=== PATIENT | female | born 1980 | race Caucasian/White ===

== ENCOUNTER 2016-06-11 10:18 | Emergency (ER) | payer BC, OTHER ==
[2016-06-11 10:30] VITALS: BP 105/62
--- NOTE | 2016-06-11 10:48 | UC ---
Throat Pain/Nasal Chris HPI - HPI Summary HPI Summary: SORE THROAT X 1 DAY, + NASAL CONGESTION AND COUGH X 1 WEEK, NO FEVER, + CHILLS + BODY ACHES - History of Current Complaint Chief Complaint: UCRespiratory Stated Complaint: SORE THROAT Time Seen by Provider: 06/11/16 10:39 Hx Obtained From: Patient Hx Last Menstrual Period: 06/02/16 Onset/Duration: Gradual Onset, Lasting Weeks - 1, Still Present Severity: Moderate Cough: Nonproductive Associated Signs & Symptoms: Positive: Nasal Discharge. Negative: Sinus Discomfort, Fever, Rash - Allergies/Home Medications Allergies/Adverse Reactions: Allergies Allergy/AdvReac Type Severity Reaction Status Date / Time Amoxicillin Allergy Intermediate Rash Verified 06/11/16 10:31 Sulfa Drugs Allergy Intermediate Rash Verified 06/11/16 10:31 Prednisone Allergy Difficulty Verified 06/11/16 10:31 Breathing Cefuroxime [From Ceftin] AdvReac Headache Verified 06/11/16 10:31 ? peanuts Allergy Swelling Uncoded 10/20/14 15:24 Of Face,Lips,& Throat environmental Allergy Congestion Uncoded 10/20/14 15:24 Home Medications: Home Medications Pseudoephedrine HCl [Sudafed Congestion] 30 mg PO Q4HR PRN 06/11/16 [History Confirmed 06/11/16] PMH/Surg Hx/FS Hx/Imm Hx Respiratory History Of: Reports: Asthma - A TEEN - Surgical History Surgical History: Yes Surgery Procedure, Year, and Place: 2 C-SECTS - Family History Known Family History: Positive: None, Other - neg for clots, PE, DVT Negative: Diabetes - Social History Alcohol Use: Rare Substance Use Type: None Smoking Status (MU): Former Smoker Type: Cigarettes Amount Used/How Often: 1/4 PPD Length of Time of Smoking/Using Tobacco: 6 Years Have You Smoked in the Last Year: No When Did the Patient Quit Smoking/Using Tobacco: 2006 - Immunization History Most Recent Influenza Vaccination: Not the Season Review of Systems Constitutional: Chills, Fatigue Skin: Negative Eyes: Negative ENT: Sore Throat, Nasal Discharge Respiratory: Cough Cardiovascular: Negative Gastrointestinal: Negative Genitourinary: Negative Motor: Negative All Other Systems Reviewed And Are Negative: Yes Physical Exam Triage Information Reviewed: Yes Appearance: Well-Appearing, No Pain Distress, Well-Nourished Vital Signs: Initial Vital Signs Temp 97.5 F 06/11/16 10:23 Pulse 64 06/11/16 10:23 Resp 14 06/11/16 10:23 BP 105/62 06/11/16 10:23 Pulse Ox 100 06/11/16 10:23 Vital Signs Reviewed: Yes Eyes: Positive: Conjunctiva Clear ENT: Positive: Normal ENT inspection, Hearing grossly normal, Pharyngeal erythema, TMs normal. Negative: Nasal congestion, Nasal drainage Neck exam: Normal Neck: Positive: Supple, Nontender, No Lymphadenopathy Respiratory: Positive: Chest non-tender, Lungs clear, Normal breath sounds, No respiratory distress Cardiovascular: Positive: RRR, No Murmur, Pulses Normal Abdominal Exam: Normal Skin Exam: Normal Throat Pain/Nasal Course/Dx - Differential Dx/Diagnosis Provider Diagnoses: VIRAL ILLNESS Discharge - Discharge Plan Condition: Stable Disposition: HOME Patient Education Materials: Viral Syndrome (ED) Referrals: Dinorah Lugo MD [Primary Care Provider] - 7 Days
== END 2016-06-11 11:04 | disposition home or self-care (01) ==
LOC: UCCORT 10:18
DX: B34.9 Viral infection, unspecified (principal); Z87.891 Personal history of nicotine dependence; Z88.2 Allergy status to sulfonamides; Z88.3 Allergy status to other anti-infective agents; Z88.8 Allergy status to other drugs, medicaments and biological substances
CPT/HCPCS: 87651; 99211; G0463

== ENCOUNTER 2016-10-31 18:50 | Emergency (ER) | payer BC ==
[2016-10-31 19:03] VITALS: BP 109/68
--- NOTE | 2016-10-31 19:58 | UC ---
Respiratory Complaint HPI - HPI Summary HPI Summary: The patient comes in today for: 1. Sore throat, otalgia, dizziness (imbalance), headache, post nasal drip; Onset: 3 days ago. Palliative/provocative: Sudafed and laying down makes it better. Quality: pressure Region: Sinuses: Severity: 5/10 Time: Constant. Associated symptoms: Fevers: None. Rhinitis: Nothing comes out. Cough: Present--clear/yellow. * - History of Current Complaint Chief Complaint: UCGeneralIllness Stated Complaint: SORE THROAT,COUGH,EARS Time Seen by Provider: 10/31/16 19:52 Hx Obtained From: Patient Hx Last Menstrual Period: - Allergies/Home Medications Allergies/Adverse Reactions: Allergies Allergy/AdvReac Type Severity Reaction Status Date / Time Amoxicillin Allergy Intermediate Rash Verified 10/31/16 19:03 Sulfa Drugs Allergy Intermediate Rash Verified 10/31/16 19:03 Prednisone Allergy Difficulty Verified 10/31/16 19:03 Breathing Cefuroxime [From Ceftin] AdvReac Headache Verified 10/31/16 19:03 ? peanuts Allergy Swelling Uncoded 10/31/16 19:03 Of Face,Lips,& Throat environmental Allergy Congestion Uncoded 10/31/16 19:03 PMH/Surg Hx/FS Hx/Imm Hx Previously Healthy: Yes - Surgical History Surgical History: Yes Surgery Procedure, Year, and Place: 2 C-SECTS - Family History Known Family History: Positive: None, Diabetes, Other - neg for clots, PE, DVT Negative: Hypertension - Social History Occupation: Employed Full-time Alcohol Use: None Substance Use Type: None Smoking Status (MU): Former Smoker Type: Cigarettes Amount Used/How Often: 1/4 PPD Length of Time of Smoking/Using Tobacco: 6 Years Have You Smoked in the Last Year: No When Did the Patient Quit Smoking/Using Tobacco: 2006 - Immunization History Most Recent Influenza Vaccination: Not the 2015/2015 Season Review of Systems Constitutional: Negative Skin: Negative Eyes: Negative ENT: Sore Throat, Nasal Discharge Respiratory: Cough Cardiovascular: Negative Gastrointestinal: Negative Genitourinary: Negative All Other Systems Reviewed And Are Negative: Yes Physical Exam Triage Information Reviewed: Yes Appearance: Well-Appearing, No Pain Distress, Well-Nourished Vital Signs: Initial Vital Signs Temp 98.0 F 06/15/17 18:57 Pulse 66 10/31/16 18:57 Resp 16 10/31/16 18:57 BP 109/68 10/31/16 18:57 Pulse Ox 100 10/31/16 18:57 Eyes: Positive: Conjunctiva Clear. Negative: Discharge ENT: Positive: Hearing grossly normal, Other: - Mild frontal sinus pressure tenderness.. Negative: Pharyngeal erythema, Nasal congestion, Nasal drainage, TM bulging, TM dull, TM red, Tonsillar swelling, Tonsillar exudate Dental: Negative: Gross Decay/Caries @, Dental Fracture @ Neck: Positive: Supple, Nontender, No Lymphadenopathy. Negative: Nuchal Rigidity Respiratory: Positive: Chest non-tender, Lungs clear, No respiratory distress, No accessory muscle use Cardiovascular: Positive: RRR, No Murmur Abdomen Description: Positive: Nontender, No Organomegaly, Soft. Negative: Distended, Guarding, Peritoneal Signs Musculoskeletal: Positive: Strength Intact, ROM Intact, No Edema Neurological: Positive: Alert, Muscle Tone Normal Psychological: Positive: Age Appropriate Behavior, Consolable Skin: Negative: rashes, breakdown UC Diagnostic Evaluation - Laboratory O2 Sat by Pulse Oximetry: 100 Diagnostic Studies Comment: Strep test: (-). Patient wants a z-elsie Respiratory Course/Dx - Differential Dx/Diagnosis Differential Diagnosis/HQI/PQRI: Asthma, Bronchitis, Laryngitis Provider Diagnoses: Upper respiratory infection. Sinusitis Discharge - Discharge Plan Condition: Stable Disposition: HOME Patient Education Materials: Sinusitis (ED) Referrals: Dinorah Lugo MD [Primary Care Provider] - 1 Week (Please see your primary care provider in about one to two weeks to see how well you are doing. If you get worse, please be seen sooner.)
== END 2016-10-31 20:31 | disposition home or self-care (01) ==
LOC: UCCORT 18:50
DX: J06.9 Acute upper respiratory infection, unspecified (principal); J32.9 Chronic sinusitis, unspecified; Z88.1 Allergy status to other antibiotic agents; Z88.0 Allergy status to penicillin; Z88.2 Allergy status to sulfonamides; Z88.8 Allergy status to other drugs, medicaments and biological substances; Z87.891 Personal history of nicotine dependence
CPT/HCPCS: 87651; 99212; G0463

== ENCOUNTER 2017-10-13 16:02 | Emergency (ER) | payer BC ==
[2017-10-13 16:58] VITALS: BP 100/62
--- NOTE | 2017-10-13 17:15 | UC ---
General HPI - HPI Summary HPI Summary: pt notes a swollen spot infront of her R ear on (4 days ago). it is a little sore but that may be from her rubbing it. denies uri, pink eye, fever or current illness. does have a tiny sore to the top of her head. states just had a normal exam the day before she found this. states had normal blood work as well. - History of Current Complaint Chief Complaint: UCGeneralIllness Stated Complaint: LUMP NEAR EAR RT SIDE Time Seen by Provider: 10/13/17 17:07 Hx Obtained From: Patient Hx Last Menstrual Period: 09/29/17 Timing: Constant Pain Intensity: 0 Aggravating: touch Alleviating: nothing Associated Signs & Symptoms: Negative: Fever, Weakness - Allergy/Home Medications Allergies/Adverse Reactions: Allergies Allergy/AdvReac Type Severity Reaction Status Date / Time amoxicillin Allergy Rash Verified 10/13/17 17:01 cefuroxime [From Ceftin] Allergy Headache Verified 10/13/17 17:01 prednisone Allergy Difficulty Verified 10/13/17 17:01 Breathing Sulfa (Sulfonamide Allergy Rash Verified 10/13/17 17:01 Antibiotics) ? peanuts Allergy Swelling Uncoded 10/13/17 17:01 Of Face,Lips,& Throat environmental Allergy Congestion Uncoded 10/13/17 17:01 Home Medications: Home Medications NK [No Home Medications Reported] 10/13/17 [History Confirmed 10/13/17] PMH/Surg Hx/FS Hx/Imm Hx Previously Healthy: Yes - Surgical History Surgical History: Yes Surgery Procedure, Year, and Place: 2 C-SECTS - Family History Known Family History: Positive: None, Diabetes, Other - neg for clots, PE, DVT Negative: Hypertension - Social History Occupation: Employed Full-time Lives: With Family Alcohol Use: None Substance Use Type: None Smoking Status (MU): Former Smoker Type: Cigarettes Amount Used/How Often: 1/4 PPD Length of Time of Smoking/Using Tobacco: 6 Years Have You Smoked in the Last Year: No When Did the Patient Quit Smoking/Using Tobacco: 2005 - Immunization History Most Recent Influenza Vaccination: Not the 2015/2015 Season Vaccination Up to Date: Yes Review of Systems Constitutional: Negative Skin: Other - sore on top of head Eyes: Negative ENT: Negative Respiratory: Negative Cardiovascular: Negative Gastrointestinal: Negative Genitourinary: Negative Motor: Negative Neurovascular: Negative Musculoskeletal: Negative Neurological: Negative Psychological: Negative Is Patient Immunocompromised?: No All Other Systems Reviewed And Are Negative: Yes Physical Exam Triage Information Reviewed: Yes Appearance: Well-Appearing Vital Signs: Initial Vital Signs Temp 98.2 F 10/13/17 16:54 Pulse 64 10/13/17 16:54 Resp 16 10/13/17 16:54 BP 100/62 10/13/17 16:54 Pulse Ox 100 10/13/17 16:54 Vital Signs Reviewed: Yes Eyes: Positive: Conjunctiva Clear ENT: Positive: Pharynx normal, TMs normal, Other - single enlarged node anterior to R ear that is mildly tender.. Negative: Nasal congestion, Nasal drainage Dental: Negative: Gross Decay/Caries @ Neck: Positive: Supple, Nontender, No Lymphadenopathy Respiratory: Positive: Lungs clear, Normal breath sounds Cardiovascular: Positive: RRR, No Murmur Abdomen Description: Positive: Nontender, No Organomegaly, Soft, Other: - No inguinal adenopathy. Negative: Hepatomegaly Bowel Sounds: Positive: Present Musculoskeletal: Positive: ROM Intact, Other: - no axillary or epitrochlear adenopathy Neurological: Positive: Alert Psychological: Positive: Age Appropriate Behavior Skin Exam: Normal, Other - 2mm scab top of head. not red or swollen. Course/Dx - Course Course Of Treatment: exam c/w an isolated anterior auricular adenopathy. tiny scab to top of head, exam is otherwise unremarkable. pt is established with Dr Lange. She will f/u with him for a recheck. no tx at this time. - Differential Dx - Multi-Symptom Provider Diagnoses: R anterior auricular adenopathy(single node) Discharge - Sign-Out/Discharge Documenting (check all that apply): Discharge/Admit/Transfer - Discharge Plan Condition: Stable Disposition: HOME Patient Education Materials: Lymphadenopathy (ED) Referrals: Dinorah Lugo MD [Primary Care Provider] - If Needed Madhu Lange MD [Medical Doctor] - 5 Days Additional Instructions: R anterior auricular adenopathy - Billing Disposition and Condition Condition: STABLE Disposition: HOME
== END 2017-10-13 17:32 | disposition home or self-care (01) ==
LOC: UCCORT 16:02
DX: R59.9 Enlarged lymph nodes, unspecified (principal); Z88.1 Allergy status to other antibiotic agents; Z88.0 Allergy status to penicillin; Z88.2 Allergy status to sulfonamides; Z88.8 Allergy status to other drugs, medicaments and biological substances; Z87.891 Personal history of nicotine dependence
CPT/HCPCS: 99211; G0463

== ENCOUNTER 2017-11-14 12:06 | Emergency (ER) | payer BC ==
[2017-11-14 12:23] VITALS: BP 103/69
--- NOTE | 2017-11-14 12:42 | UC ---
Abdominal Pain Female HPI - HPI Summary HPI Summary: Patient presents to with complaints of feeling somewhat bloated epigastric pressure since yesterday. Patient states feels primarily gassy. Patient is belching and passing flatus without difficulty or discomfort. Patient denies that her taste in her mouth with belching. Pt took gas relief medication yesterday without any improvement of symptoms. No other analgeisa. No meds today Patient states the discomfort better today than yesterday. Patient does state intermittently with rotation at the waist yesterday. Discomfort seemed a little worse but that improved today. Patient on a plant based diet and states that when her children get sick she tends to manifest as GI symptoms, less severe. Patient states her daughter was diagnosed with strep throat yesterday. Patient has not taken any medications or treatments specific directed to her complaints. She denies sore throat ear pain. Patient denies chest pain shortness of breath or cough. No trauma. Patient does not exercise. Patient does not report any repetitive activities. Patient without concern for . Medications medications reviewed this visit. - History of Current Complaint Chief Complaint: UCAbdominalPain Stated Complaint: UPPER ABDOMINAL PAIN Time Seen by Provider: 11/14/17 12:15 Hx Obtained From: Patient Hx Last Menstrual Period: 10/30/17 Onset/Duration: Gradual Onset Severity Initially: Mild Severity Currently: Mild Pain Intensity: 5 Pain Scale Used: 0-10 Numeric Location: Epigastric Allergies/Adverse Reactions: Allergies Allergy/AdvReac Type Severity Reaction Status Date / Time amoxicillin Allergy Rash Verified 11/14/17 12:14 cefuroxime [From Ceftin] Allergy Headache Verified 11/14/17 12:14 prednisone Allergy Difficulty Verified 11/14/17 12:14 Breathing Sulfa (Sulfonamide Allergy Rash Verified 11/14/17 12:14 Antibiotics) ? 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 Lives: With Family Alcohol Use: None Substance Use Type: None Smoking Status (MU): Former Smoker Type: Cigarettes Amount Used/How Often: 1/4 PPD Length of Time of Smoking/Using Tobacco: 6 Years Have You Smoked in the Last Year: No When Did the Patient Quit Smoking/Using Tobacco: 2005 - Immunization History Most Recent Influenza Vaccination: Not the Season Vaccination Up to Date: Yes Review of Systems Constitutional: Negative Skin: Negative Gastrointestinal: Abdominal Pain All Other Systems Reviewed And Are Negative: Yes Physical Exam - Summary Physical Exam Summary: Vital Signs Reviewed: Yes A+Ox3, no distress Eyes: Conjunctiva Clear, GISSELLE. EOM intact and full ENT: Hearing grossly normal TM x 2 clear, mmoist, uvula midline, no exudate, no erythema Neck: Positive: Supple Respiratory: Positive: No respiratory distress, No accessory muscle use + CTA throughout no w/r Cardiovascular: RRR nl s1, s2 no m/r CBT <2 sec no reproducible pain with palpation of chest wall abd soft + BS nd no guarding, no rebound Pt with mild discomfort epigastric region at xiphoid process. Musculoskeletal Exam: VASQUEZ x 4 without difficulty Strength Intact, ROM Intact Pt easily changes position on examination table Neurological: Positive: Alert, + sensation throughout Psychological: Positive: Normal Response To Family Skin: Positive: no rash, no ecchymosis Triage Information Reviewed: Yes Vital Signs: Initial Vital Signs Temp 98.4 F 11/14/17 12:15 Pulse 69 11/14/17 12:15 Resp 16 11/14/17 12:15 BP 103/69 11/14/17 12:15 Pulse Ox 100 11/14/17 12:15 Abd Pain Female Course/Dx - Course Course Of Treatment: Patient presents with 24 hours of epigastric fullness like gas pain. Patient did take gas relief medication yesterday without results. Patient has not taken any other medications. On examination, patient without discomfort in the epigastric area with deep palpation. No other concerning findings on exam. Discussed with patient at length. Suspect likely cancer related possible small episode reflux. Offered patient GI cocktail. Patient will prefer to use homeopathic remedies. We'll check for strep this patient's family has strep. Suggest the patient tried cold medication. Patient only eat bland food does not smoke cigarettes and does not have much caffeine. Patient strict return precautions. Patient states understanding and agreement with plan. If strep is negative anticipate discharge. Patient advised to the emergency department if symptoms increase, uncontrolled fevers, dental pain or vomiting. - Differential Dx/Diagnosis Provider Diagnoses: epigastric discomfort Discharge - Sign-Out/Discharge Documenting (check all that apply): Discharge/Admit/Transfer - Discharge Plan Condition: Stable Disposition: HOME Patient Education Materials: Epigastric Pain (ED) Referrals: Dinorah Lugo MD [Primary Care Provider] - Additional Instructions: The doctor evaluated today thinks if symptoms may be related to small amount of acid reflux. The following recommended: It is recommended to eat small frequent fluids. Continue to eat bland foods. Avoid spicy, acidic, tomato based products for a couple days. You may try cold or warm fluids - whatever is soothing Consider antacid to help with your discomfort Contact your doctor, return here or go to the emergency department with questions or concerns (ex increased pain, vomiting, fever, chills, shortness of breath) - Billing Disposition and Condition Condition: STABLE Disposition: Home
== END 2017-11-14 13:16 | disposition home or self-care (01) ==
LOC: UCCORT 12:06
DX: R10.13 Epigastric pain (principal); Z88.1 Allergy status to other antibiotic agents; Z88.0 Allergy status to penicillin; Z88.2 Allergy status to sulfonamides; Z88.8 Allergy status to other drugs, medicaments and biological substances; Z87.891 Personal history of nicotine dependence
CPT/HCPCS: 87651; 99211; G0463

== ENCOUNTER 2018-06-29 09:39 | Emergency (ER) | payer BC ==
[2018-06-29 11:58] VITALS: BP 100/57
--- NOTE | 2018-06-29 12:00 | UC ---
Throat Pain/Nasal Chris HPI - HPI Summary HPI Summary: 37 yo female presents with cold symptoms. She tells me that on 06/25 she developed body aches with a fever of Tman 102F that resolved with tylenol. Since that time she has had mild fatigue, body aches, and a dry cough that keeps her up at night. She has had no more fevers. Has been taking sudafed OTC with mild relief. Also has some sinus congestion and post nasal drip. Denies fever, chills, sore throat, SOB, chest pain. She does not smoke. - History of Current Complaint Chief Complaint: UCRespiratory Stated Complaint: COUGH,FLU SYMPTOMS Time Seen by Provider: 06/29/18 11:59 Hx Obtained From: Patient Hx Last Menstrual Period: 10/30/17 Onset/Duration: Gradual Onset Severity: Moderate Pain Intensity: 6 Pain Scale Used: 0-10 Numeric Cough: Nonproductive - Allergies/Home Medications Allergies/Adverse Reactions: Allergies Allergy/AdvReac Type Severity Reaction Status Date / Time amoxicillin Allergy Rash Verified 06/29/18 11:58 cefuroxime [From Ceftin] Allergy Headache Verified 06/29/18 11:58 prednisone Allergy Difficulty Verified 06/29/18 11:58 Breathing Sulfa (Sulfonamide Allergy Rash Verified 06/29/18 11:58 Antibiotics) ? peanuts Allergy Swelling Uncoded 06/29/18 11:58 Of Face,Lips,& Throat environmental Allergy Congestion Uncoded 06/29/18 11:58 Home Medications: Home Medications Phenylephrine HCl [Sudafed PE] 10 mg PO 06/29/18 [History] PMH/Surg Hx/FS Hx/Imm Hx - Additional Past Medical History Additional PMH: None - Surgical History Surgical History: Yes Surgery Procedure, Year, and Place: 2 C-SECTS - Family History Known Family History: Positive: Diabetes, Other - neg for clots, PE, DVT Negative: Hypertension - Social History Occupation: Employed Full-time Lives: With Family Alcohol Use: None Substance Use Type: None Smoking Status (MU): Former Smoker Type: Cigarettes Amount Used/How Often: 1/4 PPD Length of Time of Smoking/Using Tobacco: 6 Years Have You Smoked in the Last Year: No When Did the Patient Quit Smoking/Using Tobacco: 2006 - Immunization History Most Recent Influenza Vaccination: Not the Season Vaccination Up to Date: Yes Review of Systems All Other Systems Reviewed And Are Negative: Yes Constitutional: Positive: Fatigue, Other - Body aches Skin: Positive: Negative Eyes: Positive: Negative ENT: Positive: Nasal Discharge Respiratory: Positive: Cough Cardiovascular: Positive: Negative Gastrointestinal: Positive: Negative Neurovascular: Positive: Negative Neurological: Positive: Negative Psychological: Positive: Negative Physical Exam - Summary Physical Exam Summary: GENERAL: NAD. WDWN. No pain distress. SKIN: No rashes, sores, lesions, or open wounds. HEENT: Head: AT/NC Eyes: EOM intact. Conjunctiva clear without inflammation or discharge. Ears: Hearing grossly normal. TMs intact, no bulging, erythema, or edema. Nose: Nasal mucosa pink and moist. NTTP maxillary and frontal sinus. Throat: Posterior oropharynx without exudates, erythema, or tonsillar enlargement. Uvula midline. NECK: Supple. Nontender. No lymphadenopathy. CHEST: CTAB. No r/r/w. No accessory muscle use. Breathing comfortably and in no distress. CV: RRR. Without m/r/g. Pulses intact. Cap refill <2seconds NEURO: Alert. PSYCH: Age appropriate behavior. Triage Information Reviewed: Yes Vital Signs: Initial Vital Signs Temp 98.0 F 06/29/18 11:54 Pulse 67 06/29/18 11:54 Resp 18 06/29/18 11:54 BP 100/57 06/29/18 11:54 Pulse Ox 100 06/29/18 11:54 Vital Signs Reviewed: Yes Throat Pain/Nasal Course/Dx - Course Course Of Treatment: Suspect viral illness. Rx for cough medicine and advised to continue OTC medications. F/u if symptoms do not improve. - Differential Dx/Diagnosis Provider Diagnosis: Viral syndrome Discharge - Sign-Out/Discharge Documenting (check all that apply): Patient Departure All imaging exams completed and their final reports reviewed: No Studies - Discharge Plan Condition: Stable Disposition: HOME Prescriptions: Benzonatate CAP* [Tessalon 100 MG CAP*] 100 mg PO TID PRN #21 cap PRN Reason: Cough Diphenhydra/Phenyleph/Acetamin [Delsym Cough + Cold Night 12.5-5-325 mg/10Ml] 1 liq PO BEDTIME PRN #1 bottle PRN Reason: Cough Patient Education Materials: Viral Syndrome (ED) Referrals: Dinorah Lugo MD [Primary Care Provider] - Additional Instructions: If you develop a fever, shortness of breath, chest pain, new or worsening symptoms - please call your PCP or go to the ED. - Billing Disposition and Condition Condition: STABLE Disposition: Home
== END 2018-06-29 12:12 | disposition home or self-care (01) ==
LOC: UCCORT 09:39
DX: B34.9 Viral infection, unspecified (principal); M79.10 Myalgia, unspecified site; R53.83 Other fatigue; R05 Cough; R09.81 Nasal congestion; R09.82 Postnasal drip; Z88.0 Allergy status to penicillin; Z88.1 Allergy status to other antibiotic agents; Z88.8 Allergy status to other drugs, medicaments and biological substances; Z88.2 Allergy status to sulfonamides; Z91.09 Other allergy status, other than to drugs and biological substances; Z87.891 Personal history of nicotine dependence
CPT/HCPCS: 99212; G0463

== ENCOUNTER 2018-10-12 16:52 | Emergency (ER) | payer BC ==
--- OUTSIDE RECORDS SUMMARY | 2018-10-12 17:11 | XMS REPORT | Continuity of Care Document ---
:1980 External Reference #:[id number] Author Name Zoila Gutierrez Care Team Providers Name Role Phone Dinorah Lugo MD Care Team Information Green Ware Caster Unavailable Payers Date Identification Numbers Payment Provider Subscriber Policy Number: [id number] Blane Rivera PayID: [id number] [address] [address] MARIELLA Khan [id number] Family History Date Family Member(s) Observation Comments Father Diabetes Mellitus, II Father Heart Disease Maternal Grandmother Hyperthyroidism Maternal Grandmother spinal stenosis Maternal Aunts Hypothyroidism Social History Type Date Description Comments Sex Unknown Diet vegan no meat dairy or eggs ETOH Use Denies alcohol use Tobacco Use Start: Unknown End: Unknown Patient is a former smoker Smoking Status Reviewed: 10/08/17 Patient is a former smoker Allergies, Adverse Reactions, Alerts Active Allergies Reaction Severity Comments Date Amoxicillin Rash 01/04/2014 sulfa 01/04/2014 Ceftin 01/04/2014 Prednisone 01/04/2014 Peanut-containing Drug Products 01/04/2014 Medications Active Medications SIG Qnty Indications Ordering Provider Date Clotrimazole/Betametha apply to affected 45gm B35.9 Dinorah Lugo M.D. 11/2018 sone Dipropionate area three times a 1-0.05% day Cream History Medications No Active Medications Unknown 01/09/2017 - 09/22/2018 Zithromax 2 by mouth day 1, 6pills J02.9 Dinorah Lugo, 06/07/2015 - 250mg Tablets 1 by mouth every M.D. 11/08/2015 day x days 2-5 Work Note The above is J02.9 Dinorah Lugo, 06/07/2015 - excused from work M.D. 01/09/2017 until 06/09/15 Azithromycin 2 by mouth today, 6tabs J20.0 iDnorah Lugo, 02/22/2015 - 250mg 1 by mouth day 2 M.D. 06/07/2015 Tablets thru 5 Cheratussin ac 5 milliliters 118ml J20.0 Dinorah Lugo, 02/22/2015 - every 6 hours as M.D. 06/07/2015 100-10mg/5ML Solution needed cough Pseudoephedrine HCL J20.0 Dinorah Lugo, 02/22/2015 - 30mg M.D. 06/07/2015 Tablets Lidoderm apply patch to 7units 846.8 Dinorah Lugo, 10/24/2014 - 5% Patches affected area of M.D. 11/08/2015 back change daily Antibacterial Lotion wash affected 704.80 Dinorah Lugo, 02/22/2014 - Soap/ Phisohex areas of skin with M.D. 08/08/2014 0.3% soap once daily Liquid Complete 1 po daily 100tabs Dinorah Lugo, 01/19/2014 - M.D. 01/09/2017 14-0.4mg Tablets Multivitamins With 1 po daily 100unit Dinorah Lugo, 01/19/2014 - Minerals s M.D. 01/19/2014 Magnesium Gluconate 1 by mouth daily 100tabs 275.2 Dinorah Lugo, 2013 - 500mg M.D. 08/08/2014 Tablets Ciprofloxacin HCL 1 by mouth twice a 14tabs 995.3 Dinorah Lugo, 01/04/2014 - 250mg day M.D. 02/22/2014 Tablets Astepro 1-2 sprays to each 1units 995.3 Dinorah Lugo, 01/04/2014 - 0.15% Solution nose daily. M.D. 08/08/2014 Doxycycline 1 by mouth twice a 30caps 995.3 Dinorah Lugo, 01/04/2014 - Monohydrate day M.D. 01/04/2014 100mg Capsules Vitamin D 2 by mouth every Dinorah Lugo, 01/04/2014 - 2000Unit day M.D. 08/08/2014 Capsules Ventolin HFA 2 puff four times 1units Dinorah Lugo, 01/04/2014 - 108(90Base) a day as needed M.D. 01/04/2014 mcg/Act Aerosol Qnasl Dinorah Lugo, 01/04/2014 - 80mcg/Act Aerosol M.D. 01/04/2014 Levocetirizine 1 by mouth every 90tabs Dinorah Lugo, 01/04/2014 - Dihydrochloride day M.D. 01/04/2014 5mg Tablets Dulera 1 puff twice a day 3units Dinorah Lugo, 01/04/2014 - 100-5mcg/Act M.D. 01/04/2014 Aerosol Zyrtec Allergy tab 1 by mouth 30caps Dinorah Lugo, 01/04/2014 - 10mg every day M.D. 08/08/2014 Capsules Magnesium Oxide 1 by mouth qd 90caps 275.2 Dinorah Lugo, 01/04/2014 - 400mg M.D. 01/19/2014 Capsules Triamcinolone Dinorah Lugo, 01/04/2014 - Acetonide M.D. 01/04/2014 55mcg/Act Inhaler Sertraline HCL 1 by mouth every 90tabs Dinorah Lugo, 01/04/2014 - 50mg day M.D. 01/04/2014 Tablets Azithromycin Unknown - 200mg/5ML 01/04/2014 Suspension Rec Medications Administered in Office Medication SIG Qnty Indications Ordering Provider Date PPD Injection Dinorah Lugo M.D. 11/06/2015 PPD Injection Nurse 11/06/2015 B-12 Injection Dinorah Lugo M.D. 01/19/2014 Injection Vital Signs Date Vital Result Comment 09/28/2018 3:35pm BP Systolic 98 mmHg BP Diastolic 66 mmHg Height 66 inches 5'6" Weight 167.00 lb BMI (Body Mass Index) 27.0 kg/m2 09/22/2018 1:22pm BP Systolic 104 mmHg BP Diastolic 70 mmHg Height 66 inches 5'6" Weight 167.00 lb BMI (Body Mass Index) 27.0 kg/m2 10/08/2017 3:51pm BP Systolic 94 mmHg BP Diastolic 62 mmHg Height 66 inches 5'6" Weight 185.00 lb BMI (Body Mass Index) 29.9 kg/m2 01/09/2017 11:01am BP Systolic 118 mmHg BP Diastolic 68 mmHg Height 65 inches 5'5" Weight 180.00 lb BMI (Body Mass Index) 30.0 kg/m2 11/08/2015 2:34pm BP Systolic 110 mmHg Height 178 inches 14'10" 06/07/2015 3:40pm BP Systolic 130 mmHg BP Diastolic 72 mmHg Body Temperature 98.6 F 02/22/2015 2:42pm Body Temperature 98.2 F 10/26/2014 1:29pm BP Systolic 110 mmHg BP Diastolic 70 mmHg 10/24/2014 11:23am BP Systolic 102 mmHg BP Diastolic 70 mmHg 08/10/2014 9:54am BP Systolic 120 mmHg BP Diastolic 60 mmHg 08/03/2014 11:26am BP Systolic 110 mmHg BP Diastolic 78 mmHg 07/20/2014 11:03am BP Systolic 108 mmHg BP Diastolic 60 mmHg Height 66 inches 5'6" Weight 175.00 lb BMI (Body Mass Index) 28.2 kg/m2 04/25/2014 3:27pm BP Systolic 120 mmHg BP Diastolic 70 mmHg Body Temperature 97.1 F Height 66 inches 5'6" Weight 175.00 lb BMI (Body Mass Index) 28.2 kg/m2 04/11/2014 2:33pm BP Systolic 122 mmHg BP Diastolic 80 mmHg 01/04/2014 2:44pm BP Systolic 102 mmHg BP Diastolic 70 mmHg Height 63 inches 5'3" Weight 199.00 lb BMI (Body Mass Index) 35.2 kg/m2 Results Test Date Facility Test Result H/L Range Note General Health Panel 09/22/2018 [facility] TSH 0.94 mIU/L 0.40-4.50 1, [address] [facility] [address] [place] [address] [phone] T4,Free 1.1 ng/dL 0.8-1.8 CBC W/ Diff & PLT 09/22/2018 [facility] WBC 7.7 thous/L 3.8-10.[address] [place] [address] [phone] RBC 3.79 mill/L Low 3.80-5.10 Hemoglobin 11.5 g/dL Low 11.7-15.5 Hematocrit 34.2 % Low 35.0-45.0 MCV 90.4 FL 80.0-100.0 MCH 30.3 pg 27.0-33.0 MCHC 33.5 g/dL 32.0-36.0 RDW 14.3 % 11.0-15.0 Platelet Count 203 thous/L 140-400 MPV 10.1 FL 7.5-12.5 Neutrophils,Absolute 5100 cells/L [phone] Bands,Absolute PENDING Metamyelocytes,Absolute PENDING Myelocytes,Absolute PENDING Promyelocytes,Absolute PENDING Lymphocytes,Absolute 2000 cells/L 850-3900 Monocytes,Absolute 470 cells/L 200-950 Eosinophils,Absolute 100 cells/L 15-500 Basophils,Absolute 30 cells/L 0-200 Blast Cells,Absolute PENDING Nucleated RBC,Absolute PENDING Total Neutrophils,% 66 % 40-75 Bands,% PENDING Metamyelocytes,% PENDING Myelocytes,% PENDING Promyelocytes,% PENDING Total Lymphocytes,% 26 % 12-47 Reactive Lymphocytes PENDING Monocytes,% 6 % 4-12 Eosinophils,% 1 % 0-4 Basophils,% 0 % 0-1 3 Blasts,% PENDING Nucleated RBC PENDING Comment PENDING CMP W/GFR 09/22/2018 [facility] Sodium 139 mmol/L 135-[address] [place] [address] [phone] Potassium 3.8 mmol/L 3.5-5.3 Chloride 106 mmol/L 98-110 Carbon Dioxide 26 mmol/L 20-32 4 Calcium 9.0 mg/dL 8.6-10.2 Alkaline Phosphatase 57 U/L 33-115 Ast 13 U/L 10-30 Alt 12 U/L 6-29 Bilirubin,Total 0.4 mg/dL 0.2-1.2 Glucose 102 mg/dL High 65-99 5 Urea Nitrogen (BUN) 7 mg/dL 7-25 Creatinine 0.52 mg/dL 0.50-1.10 BUN/Creatinine Ratio 13.8 6-22 Protein,Total 6.9 g/dL 6.1-8.1 Albumin 4.3 g/dL 3.6-5.1 Globulin,Calculated 2.6 g/dL 1.9-3.7 A/G Ratio 1.6 1.0-2.5 Egfr Non-Afr. Taiwanese 123 ML/MIN/1.73M2 > Or=60 Egfr 142 ML/MIN/1.73M2 > Or=60 Lupus (SLE) PNL 09/22/2018 [facility] Rheumatoid Factor < 14 IU/mL <[address] [place] [address] [phone] C3,Serum 136 mg/dL 83-193 C4,Serum 25 mg/dL 15-57 Maki Screen NEGATIVE Negative 6 Mitochondrial AB Titer LESS THAN 1:20 TITER Less Than 1:20 Ribosomal P Antibody <1.0 NEG AI <1.0 Neg SM AB <1.0 NEG AI <1.0 Neg SM/ASPHALT STILL OPERATOR AB <1.0 NEG AI <1.0 Neg Sjogren's AB (SS-A) <1.0 NEG AI <1.0 Neg Sjogren's AB (SS-B) <1.0 NEG AI <1.0 Neg Parietal Cell AB Titer LESS THAN 1:20 TITER Less Than 1:20 Scleroderma Abs (SCL-70) <1.0 NEG AI <1.0 Neg Thyroid Peroxidase AB 2 IU/mL <9 Actin (Smooth Musc) AB (Igg) <20 U <20 7 Dna AB (DS) Crithidia NEGATIVE Negative Dna AB (DS) Crithidia Titer SEE BELOW <1:10 8 Striated Muscle AB Screen NEGATIVE Negative 9 Striated Muscle AB Titer SEE BELOW <1:40 10 Myocardial AB, If NEGATIVE Negative 11 Antimyocardial AB Titer SEE BELOW <1:40 12 Reticulin Iga Screen Negative Negative Laboratory test 09/22/2018 [facility] Dna AB (DS) PENDING finding [address] [place] [address] Titer Reflex) [phone] Laboratory test 09/22/2018 [facility] Lyme Disease <0.90 INDEX [address] AB W/[place] [address] To Blot [phone] (Igg,Igm) Ua RFX Micro & 11/15/2017 [facility] Urine Color YELLOW Yellow 14 Culture II [address] [place] [address] [phone] Urine Clarity CLEAR Clear Urine Glucose - Dipstick NEGATIVE mg/dL Negative Urine Bilirubin - Dipstick NEGATIVE Negative Urine Ketone TRACE mg/dL High Negative Urine Specific Dinuba 1.020 N 1.010-1.030 Urine Blood NEGATIVE Negative Urine PH 5.5 Low 6.5-7.5 Urine Protein - Dipstick NEGATIVE mg/dL Negative Urine Urobilinogen - Dipstick 0.2 E.U./dL N 0.2-1.0 Urine Nitrite - Dipstick NEGATIVE Negative Urine Leuk Esterase NEGATIVE Negative Source: URINE, CLEAN CAT <SEE NOTE> 15 CBS W/Automated 11/15/2017 [facility] White Blood 6.9 K/uL N 3.1-10.[address] Count [place], [place] [id number] [phone] Red Blood Count 4.43 M/uL N 3.90-5.40 Hemoglobin 13.3 gm/dL N 11.6-15.8 Hematocrit 39.4 % N 36.0-46.1 Mean Cell Volume 88.9 fl N 80.9-99.0 Mean Corpuscular HGB 30.0 pg N 25.9-32.7 Mean Corpuscular HGB Conc 33.8 g/dL N 30.8-34.3 Platelet Count 239 K/uL N 155-360 Red Cell Distri Width SD 41.3 fl N 3-47 Red Cell Distri Width %CV 12.8 % N 11.7-14.4 Mean Platelet Volume 9.9 fL N 8.9-12.4 Neut% 70.8 % N 40.4-72.8 Lymph % 22.0 % N 20.0-42.0 Dewey % 5.1 % N 4.3-13.2 Eo% 1.7 % N 0.0-6.6 Bas% 0.4 % N 0.0-1.1 Neut# 4.90 K/uL N 1.8-7.0 Lymph # 1.52 K/uL N 1.0-4.0 Dewey # 0.35 K/uL N 0.3-0.9 Eos # 0.12 K/uL N 0.0-0.5 Baso # 0.03 K/uL N 0.0-0.1 Comprehensive Metabolic 11/15/2017 [facility] Glucose 95 mg/dL N 74-[address] [place], [place] [id number] [phone] BUN 7 mg/dL N 7-18 Creatinine 0.7 mg/dL N 0.6-1.3 Glom Filtration Rate, Estimate >60 mL/min >60 If >60 mL/min >60 16 BUN/Creat 10.0 ratio Sodium 141 mmol/L N 136-145 Potassium 3.9 mmol/L N 3.5-5.1 Chloride 107 mmol/L N 98-107 Carbon Dioxide 26 mmol/L N 21-32 Anion Gap 8 mEq/L N 8-16 Calcium 9.1 mg/dL N 8.5-10.1 Total Protein 8.1 g/dL N 6.4-8.2 Albumin 4.0 g/dL N 3.4-5.0 Globulin 4.1 g/dL N 1.9-4.3 Alb/Glob 1.0 ratio Bilirubin,Total 0.3 mg/dL N 0.2-1.0 Sgot/Ast 13 U/L Low 15-37 17 SGPT/Alt 20 U/L N 12-78 Alkaline Phosphatase 61 U/L N 45-117 Laboratory test 11/15/2017 [facility] Lipase 167 U/L N 56-[address] [place], [place] [id number] [phone] HCG,Serum (Qualitative) NEGATIVE (Negative) 18 Laboratory test 11/15/2017 [facility] Troponin-I < 0.015 [address] ng/mL [place], [place] [id number] [phone] Laboratory test 11/14/2017 [facility] Rapid Strep Negative Negative [address] [place] [address] [phone] Vitamin E, 09/26/2017 [facility] Vitamin E 6.6 mg/L 5.9-19.4 [address] [place] [address] [phone] Vitamin E(Gamma Tocopherol) 0.6 mg/L Low 0.7-4.9 22 Laboratory test 09/26/2017 [facility] Vitamin A, 27.5 g/dL Low 31.2-89.1 [address] [place] [address] [phone] Vitamin B12 550 pg/mL N 193-986 Vitamin D,1,25 Dihydroxy 50.1 pg/mL 19.9-79.3 24 Basic Metabolic Panel 09/26/2017 [facility] Glucose 93 mg/dL N 74-[address] [place] [address] [phone] BUN 9 mg/dL N 7-18 Creatinine 0.6 mg/dL N 0.6-1.3 Glom Filtration Rate, Estimate >60 mL/min >60 If >60 mL/min >60 25 BUN/Creat 15.0 ratio Sodium 138 mmol/L N 136-145 Potassium 3.9 mmol/L N 3.5-5.1 Chloride 107 mmol/L N 98-107 Carbon Dioxide 26 mmol/L N 21-32 Anion Gap 5 mEq/L Low 8-16 Calcium 8.3 mg/dL Low 8.5-10.1 LDL Cholesterol 09/26/2017 [facility] Cholesterol 109 mg/dL <200 [address] [place], [place] [id number] [phone] Triglycerides 46 mg/dL <150 27 HDL Cholesterol 44 mg/dL >40 28 LDL-Cholesterol 56 mg/dL < 100 29 CBS W/Automated 09/26/2017 [facility] White Blood 6.5 K/uL N 3.1-10.[address] [place] [address] [phone] Red Blood Count 4.05 M/uL N 3.90-5.40 Hemoglobin 12.3 gm/dL N 11.6-15.8 Hematocrit 35.9 % Low 36.0-46.1 Mean Cell Volume 88.6 fl N 80.9-99.0 Mean Corpuscular HGB 30.4 pg N 25.9-32.7 Mean Corpuscular HGB Conc 34.3 g/dL N 30.8-34.3 Platelet Count 192 K/uL N 155-360 Red Cell Distri Width SD 41.5 fl N 3-47 Red Cell Distri Width %CV 13.1 % N 11.7-14.4 Mean Platelet Volume 10.0 fL N 8.9-12.4 Neut% 67.2 % N 40.4-72.8 Lymph % 24.0 % N 20.0-42.0 Dewey % 6.3 % N 4.3-13.2 Eo% 2.2 % N 0.0-6.6 Bas% 0.3 % N 0.0-1.1 Neut# 4.34 K/uL N 1.8-7.0 Lymph # 1.55 K/uL N 1.0-4.0 Dewey # 0.41 K/uL N 0.3-0.9 Eos # 0.14 K/uL N 0.0-0.5 Baso # 0.02 K/uL N 0.0-0.1 CBC W/ Diff & PLT 01/09/2017 [facility] WBC 7.4 thous/L 3.8-10.8 [address] [facility] [place] [address] [phone] RBC 4.36 mill/L 3.80-5.10 Hemoglobin 12.6 g/dL 11.7-15.5 Hematocrit 37.5 % 35.0-45.0 MCV 86.1 FL 80.0-100.0 MCH 29.0 pg 27.0-33.0 MCHC 33.7 g/dL 32.0-36.0 RDW 14.5 % 11.0-15.0 Platelet Count 226 thous/L 140-400 Platelet Sufficiency PENDING MPV 8.2 FL 7.5-12.5 Neutrophils,Absolute 4670 cells/L 0362-1381 Bands,Absolute PENDING Metamyelocytes,Absolute PENDING Myelocytes,Absolute PENDING Promyelocytes,Absolute PENDING Lymphocytes,Absolute 2140 cells/L 850-3900 Monocytes,Absolute 360 cells/L 200-950 Eosinophils,Absolute 150 cells/L 15-500 Basophils,Absolute 30 cells/L 0-200 Blast Cells,Absolute PENDING Nucleated RBC,Absolute PENDING Total Neutrophils,% 64 % 40-75 Bands,% PENDING Metamyelocytes,% PENDING Myelocytes,% PENDING Promyelocytes,% PENDING Total Lymphocytes,% 29 % 12-47 Monocytes,% 5 % 4-12 Eosinophils,% 2 % 0-4 Basophils,% 0 % 0-1 30 Blasts,% PENDING Nucleated RBC PENDING RBC Morphology PENDING Anisocytosis PENDING Poikilocytosis PENDING Microcytosis PENDING Macrocytosis PENDING Polychromasia PENDING Hypochromasia PENDING Target Cells PENDING Basophilic Stippling PENDING Comment PENDING Lipid Panel 01/09/2017 [facility] Cholesterol 156 mg/dL <[address] [place] [address] [phone] HDL Cholesterol 41 mg/dL Low >50 Cholesterol/HDL Ratio 3.8 CALC <5.0 LDL Chol,Calculated 89 mg/dL 0-100 31 Triglycerides 161 mg/dL High <150 Non-HDL Cholesterol 114 mg/dL <130 32 Basic Metab W/O CA 01/09/2017 [facility] Sodium 139 mmol/L 135-[address] [place], [place] [address] [phone] Potassium 3.9 mmol/L 3.5-5.3 Chloride 103 mmol/L 98-110 Carbon Dioxide 26 mmol/L 20-31 Glucose 88 mg/dL 65-99 33 Urea Nitrogen 9 mg/dL 7-25 Creatinine 0.54 mg/dL 0.50-1.10 BUN/Creatinine Ratio 17.0 6-22 Laboratory test 01/09/2017 [facility] Vitamin 668 pg/mL 200-[address] B12,Serum [place] [id number] [phone] Vitamin D(1,25 & 01/09/2017 [facility] Vitamin D,1,25 49 pg/mL 18-72 25), A & E [address] (Oh)2,Total [place], [place] [address] [phone] Vitamin D3,1,25 (Oh)2 49 pg/mL Vitamin D2,1,25 (Oh)2 <8 pg/mL 34 Vitamin D,25-Oh,Total 33 ng/mL 30-100 Vitamin D,25-Oh,D3 33 ng/mL Vitamin D,25-Oh,D2 <4 ng/mL 35 Vitamin A (Retinol) 43 g/dL 38-98 36 Alpha-Tocopherol 12.6 mg/L 5.7-19.9 37 Rirn-Tnabj-Lgyfzbkuef <1.0 mg/L <=4.3 38 Laboratory test 10/31/2016 [facility] Rapid Strep Negative N Negative [address] [place] [address] [phone] Laboratory test 06/11/2016 [facility] Rapid Strep Negative N Negative [address] [place] [address] [phone] Celiac Disease 11/07/2014 [facility] Interpretation see note [address] [place] [address] [phone] Tissue Transglutam AB Iga 1 U/mL <4 42 Iga,Serum 233 mg/dL 81-463 Laboratory test 10/18/2014 [facility] Urine HCG NEGATIVE Negative [address] (Qualitative) [place], [place] [id number] [phone] Urine Screen 10/18/2014 [facility] Urine Color STRAW Yellow [address] [place] [address] [phone] Urine Clarity CLEAR Clear Urine Glucose - Dipstick NEGATIVE mg/dL Negative Urine Bilirubin - Dipstick NEGATIVE Negative Urine Ketone NEGATIVE mg/dL Negative Urine Specific Dinuba 1.015 1.010-1.030 Urine Blood NEGATIVE Negative Urine PH 5.5 Low 6.5-7.5 Urine Protein - Dipstick NEGATIVE mg/dL Negative Urine Urobilinogen - Dipstick 0.2 E.U./dL 0.2-1.0 Urine Nitrite - Dipstick NEGATIVE Negative Urine Leuk Esterase NEGATIVE Negative CBS W/Automated 07/21/2014 [facility] White Blood 6.8 K/uL 3.1-10.[address] [place] [address] [phone] Red Blood Count 4.32 M/uL 3.90-5.40 Hemoglobin 12.6 gm/dL 11.6-15.8 Hematocrit 38.4 % 36.0-46.1 Mean Cell Volume 88.9 fl 80.9-99.0 Mean Corpuscular HGB 29.2 pg 25.9-32.7 Mean Corpuscular HGB Conc 32.8 g/dL 30.8-34.3 Platelet Count 229 K/uL 155-360 Red Cell Distri Width SD 42.7 fl 3-47 Red Cell Distri Width %CV 13.4 % 11.7-14.4 Mean Platelet Volume 10.3 fL 8.9-12.4 Neut% 68.9 % 40.4-72.8 Lymph % 22.9 % 17.0-46.1 Dewey % 5.7 % 4.3-13.2 Eo% 2.2 % 0.0-6.6 Bas% 0.3 % 0.0-1.1 Neut# 4.70 K/uL 1.0-7.0 Lymph # 1.56 K/uL Low 1.8-7.0 Dewey # 0.39 K/uL 0.3-0.9 Eos # 0.15 K/uL 0.0-0.5 Baso # 0.02 K/uL 0.0-0.1 Basic Metabolic Panel 07/21/2014 [facility] Glucose 83 mg/dL 74-[address] [place] [address] [phone] BUN 11 mg/dL 7-18 Creatinine 0.7 mg/dL 0.6-1.3 Glom Filtration Rate, Estimate >60 mL/min >60 If >60 mL/min >60 44 BUN/Creat 15.7 ratio Sodium 141 mmol/L 136-145 Potassium 3.9 mmol/L 3.5-5.1 Chloride 106 mmol/L 98-107 Carbon Dioxide 30 mmol/L 21-32 Anion Gap 5 mEq/L Low 8-16 Calcium 8.4 mg/dL Low 8.5-10.1 Laboratory test 07/21/2014 [facility] Direct LDL 96.0 mg/dL [address] [place] [address] [phone] TSH+Free T4 07/21/2014 [facility] Thyroid Stim 1.14 uIU/mL 0.36- [place] [place] [address] Hormone 3.74 [place] [address] [phone] Free T4 0.94 ng/dL 0.76-1.46 Laboratory test 07/21/2014 [facility] Free T3 2.86 pg /mL 2.18-3.[address] [place] [address] [phone] Reverse T3 12.7 ng/dL 9.2-24.1 Thyroid 07/21/2014 [facility] Thyroid Peroxidase 7 IU /mL 0-34 [address] [place] [address] [phone] Laboratory 07/21/2014 [facility] Antithyroglobulin < 1.0 0.0-0.9 47 test finding [address] Antibody IU/[place] [address] [phone] Laboratory 04/19/2014 [facility] Histone AB <1.0 U <1.0 48 test finding [address] [place], [place] [address] [phone] Iga,Serum 261 mg/dL 81-463 Igg,Serum 1304 mg/dL [phone] Igm,Serum 130 mg/dL 48-271 Laboratory test 04/19/2014 [facility] Histamine,Plasma <1.5 0.1-1.8 [address] [place] NG/[place] [address] [phone] CBC W/ Diff & 04/11/2014 [facility] White Blood Count 9.2 K/uL 3.1-10.[address] [place], [place] [address] [phone] Red Blood Count 4.21 M/uL 3.90-5.40 Hemoglobin 12.2 gm/dL 11.6-15.8 Hematocrit 36.8 % 36.0-46.1 Mean Cell Volume 87.4 fl 80.9-99.0 Mean Corpuscular HGB 29.0 pg 25.9-32.7 Mean Corpuscular HGB Conc 33.2 g/dL 30.8-34.3 Platelet Count 226 K/uL 155-360 Red Cell Distri Width SD 40.3 fl 3-47 Red Cell Distri Width %CV 13.1 % 11.7-14.4 Mean Platelet Volume 10.4 fL 8.9-12.4 Neut% 75.6 % High 40.4-72.8 Lymph % 17.9 % 17.0-46.1 Dewey % 5.2 % 4.3-13.2 Eo% 1.1 % 0.0-6.6 Bas% 0.2 % 0.0-1.1 Neut# 6.92 K/uL 1.0-7.0 Lymph # 1.64 K/uL 0.8-3.4 Dewey # 0.48 K/uL 0.3-0.9 Eos # 0.10 K/uL 0.0-0.5 Baso # 0.02 K/uL 0.0-0.1 Laboratory test 04/11/2014 [facility] Vitamin B12 672 pg/mL 200-900 [address] [place] [address] [phone] FSH 2.7 mIU/mL 51 Luteinizing Hormone 1.8 mIU/mL 52 Folate,RBC 04/11/2014 [facility] Folate,Hemolysate 505.9 NotEstab.ng/m [address] [place] [address] [phone] Hematocrit 36.9 % 34.0-46.6 Folate,RBC 1371 ng/mL [phone] Laboratory test 04/11/2014 [facility] Estrogen,Total 83 pg/mL . [address] [place], [place] [address] [phone] Progesterone 1.1 ng/mL . 54 TSH+Free T4 04/06/2014 [facility] Thyroid Stim 1.00 uIU/mL 0.36-3.74 ([facility] & [address] Hormone [facility] [place], [place] [address] [phone] Free T4 0.92 ng/dL 0.76-1.46 Laboratory test 04/06/2014 [facility] Magnesium 1.7 mg/dL Low 1.8-2.[address] [place] [address] [phone] Laboratory test 03/26/2014 [facility] Urine HCG NEGATIVE Negative [address] (Qualitative) [place] [address] [phone] Urine Screen 03/26/2014 [facility] Urine Color STRAW Yellow [address] [place] [address] [phone] Urine Clarity CLEAR Clear Urine Glucose - Dipstick NEGATIVE mg/dL Negative Urine Bilirubin - Dipstick NEGATIVE Negative Urine Ketone NEGATIVE mg/dL Negative Urine Specific [place] <=1.005 Low 1.010-1.030 Urine Blood NEGATIVE Negative Urine PH 6.5 6.5-7.5 Urine Protein - Dipstick NEGATIVE mg/dL Negative Urine Urobilinogen - Dipstick 0.2 E.U./dL 0.2-1.0 Urine Nitrite - Dipstick NEGATIVE Negative Urine Leuk Esterase NEGATIVE Negative Laboratory test 02/08/2014 [facility] Magnesium 1.6 mg/dL Low 1.8-2.[address] [place], [place] [id number] [phone] CBS W/Automated 01/04/2014 [facility] White Blood 9.8 K/uL 3.1-10.[address] [place] [address] [phone] Red Blood Count 4.25 M/uL 3.90-5.40 Hemoglobin 12.8 gm/dL 11.6-15.8 Hematocrit 36.5 % 36.0-46.1 Mean Cell Volume 85.9 fl 80.9-99.0 Mean Corpuscular HGB 30.1 pg 25.9-32.7 Mean Corpuscular HGB Conc 35.1 g/dL High 30.8-34.3 Platelet Count 271 K/uL 155-360 Red Cell Distri Width SD 41.0 fl 3-47 Red Cell Distri Width %CV 13.4 % 11.7-14.4 Mean Platelet Volume 10.2 fL 8.9-12.4 Neut% 68.8 % 40.4-72.8 Lymph % 24.1 % 17.0-46.1 Dewey % 5.2 % 4.3-13.2 Eo% 1.5 % 0.0-6.6 Bas% 0.4 % 0.0-1.1 Neut# 6.71 K/uL 1.0-7.0 Lymph # 2.35 K/uL 0.8-3.4 Dewey # 0.51 K/uL 0.3-0.9 Eos # 0.15 K/uL 0.0-0.5 Baso # 0.04 K/uL 0.0-0.1 Celiac Disease 01/04/2014 [facility] Immunoglobulin A 226 mg/dL 91-414 Comp AB Profile [address] [place] [address] [phone] Antigliadin Abs, IgG 4 units 0-19 56 Antigliadin Abs, IgA 2 units 0-19 57 Endomysial IgA Antibody Negative Negative t-Transglutaminase IgA <2 U/mL 0-3 58 t-Transglutaminase IgG <2 U/mL 0-5 59 Laboratory test 01/04/2014 [facility] Magnesium 1.4 mg/dL Low 1.7-2.[address] [place] [address] [phone] Thyroid Stim Hormone 2.01 uIU/mL 0.49-4.67 Free T4 1.00 ng/dL 0.71-1.85 Basic Metabolic 01/04/2014 [facility] Glucose 101 mg/ dL 76-[address] [place] [address] [phone] BUN 8 mg/dL 5-23 Creatinine 0.8 mg/dL 0.5-1.4 Glom Filtration Rate, Estimate >60 mL/min >60 If >60 mL/min >60 60 BUN/Creat 10.0 ratio Sodium 137 mmol/L 136-145 Potassium 3.7 mmol/L 3.5-5.1 Chloride 104 mmol/L 98-107 Carbon Dioxide 28 mEq/L 18-29 Anion Gap 9 mEq/L 8-16 Calcium 8.9 mg/dL 8.5-10.1 Laboratory test 01/04/2014 [facility] Vitamin 35.7 30.0-100.0 [address] D,25-Hydroxy ng/[place] [address] [phone] Throat-Beta 12/31/2013 [facility] Throat Beta ([address] Strep Culture NOTE) [place] [address] [phone] FASTING; MULTIPLE TESTING PRIORITIES; ROUTINE TESTING TO FOL 2 REFERENCE RANGES BELOW ARE APPLICABLE TO FEMALES FIRST TRIMESTER - 0.26 - 2.66 mIU/L SECOND TRIMESTER - 0.55 - 2.73 mIU/L THIRD TRIMESTER - 0.43 - 2.91 mIU/L 3 Relative blood cell counts (%) should be compared with absolute cell counts (cells/mcL). Relative counts may not be clinically meaningful if the absolute count of one or more cell type is decreased. Reference ranges for relative cell counts derived from: A Manual of Laboratory and Diagnostics Tests, 9th Ed, [employer], 2015. Pediatric Reference Intervals, 7th Ed, [facility] Press, 2011. 4 Reference range for high altitude clients: 18-30 mmol/L 5 GLUCOSE REFERENCE RANGE BASED ON FASTING SPECIMEN. 6 MAKI IFA is a first line screen for detecting the presence of up to approximately 150 autoantibodies in various autoimmune diseases. A negative MAKI IFA result suggests MAKI- associated autoimmune diseases are not present at this time. Visit Physician FAQs for interpretation of all antibodies in the [place], prevalence, and association with diseases at http://Minus.Innometrics/faq/XMR611 7 Reference Range: <20 U: Negative >or=20 U: Positive Antibodies recognizing actin are the main component of smooth muscle antibodies associated with auto- immune liver disease. Actin antibodies are found in approximately 75% of patients with autoimmune hepatitis (AIH) type 1, approximately 65% of patients with autoimmune cholangitis, approximately 30% of patients with primary biliary cirrhosis and approximately 2% of healthy controls. High values are closely correlated with AIH type 1. 8 Test Not Performed. Reflex testing not required. 9 This test was developed and its analytical performance characteristics have been determined by [facility]. It has not been cleared or approved by FDA. This assay has been validated pursuant to the CLIA regulations and is used for clinical purposes. 10 Test Not Performed. Screening test Negative or Not Detected. Titer not performed. 11 This test was developed and its analytical performance characteristics have been determined by [facility]. It has not been cleared or approved by FDA. This assay has been validated pursuant to the CLIA regulations and is used for clinical purposes. 12 Test Not Performed. Screening test Negative or Not Detected. Titer not performed. 13 Index Value Results Interpretation ------- < OR=0.90 Negative No Lyme antibodies detected Absence of detectable Borrelia burgdorferi antibodies. A negative result does not exclude the possibility of Borrelia burgdorferi infection. If early Lyme disease is suspected, a second sample should be collected and tested two to four weeks later. 0.91 - 1.09 Equivocal Presence or absence of Lyme antibodies cannot be discerned The imprecision inherent in this method does not allow definitive categorization of samples that read close to the cutoff. Current testing guidelines recommend that all equivocal samples be tested further in a standardized Western blot assay. > OR=1.10 Positive Lyme antibodies detected Presence of detectable Borrelia burgdorferi antibodies. Current testing guidelines recommend that all positive results be supplemented by further testing in a standardized Western blot assay. As recommended by the Food and Drug Administration (FDA), all samples with positive or equivocal results on the Borrelia burgdorferi antibody screen will be tested by Western Blot/Immunoblot. Positive or equivocal screening test results should not be interpreted as truly positive until verified as such using a supplemental assay (e.g., B. burgdorferi blot). The screening test and/or blot for B. burgdorferi antibodies may be falsely negative in early stages of Lyme disease, including the period when erythema migrans is apparent. 14 UPPER ABDOMINAL DISCOMFORT, RECOMMENDED BY CC 15 URINE, CLEAN CATCH 16 Note: Persistent reduction for 3 months or more in an eGFR <60 mL/min/1.73 m2 defines CKD. Patients with eGFR values >/=60 mL/min/1.73 m2 may also have CKD if evidence of persistent proteinuria is present. The original MDRD equation for estimated GFR is not valid for patients less than 18 years of age. Additional information may be found at www.kdoqi.org. 17 Values below the stated reference ranges of AST and ALT can be seen in normal populations. Clinical correlation is suggested. 18 Method: Quidel QuickVue One-Step Immunoassay 19 0.0 - 0.045 ng/mL: Normal 0.046 - 0.5 ng/mL: Suggestive 0.6 - 1.5 ng/mL: Consistent 20 Staffing And Scheduling Coordinator: [id number] 21 E03.8,R53.83,R94.5 E03.8,R53.83,R94.5 Z00.00 R53.8 E66.3 12/15/17 2010: Vitamin E(gamma previously reported as: 0.6 L mg/L Reference intervals for alpha and gamma-tocopherol determined from National Health and Nutrition Examination Survey, 4876-8855. Individuals with alpha-tocopherol levels less than 0.5 mg/L are considered vitamin E deficient. This test was developed and its performance characteristics determined by [facility]. It has not been cleared or approved by the Food and Drug Administration. Performed at: [address] [id number] Nurse Aide Evaluator: Francisco Mathew MD, Phone: [phone] Amended result called to: [] - 12/15/17 at 2009 Reference intervals for alpha and gamma-tocopherol determined from National Health and Nutrition Examination Survey, 3300-1259. Individuals with alpha-tocopherol levels less than 5.0 mg/L are considered vitamin E deficient. This test was developed and its performance characteristics determined by [facility]. It has not been cleared or approved by the Food and Drug Administration. This is an amended report This report has been re-issued to display the correct interpretive comment. From August 18, 2017 through November 11, 2017 the comment was incorrect. The interpretive comment has been updated to appropriately reflect Vitamin E deficiency. The result and reference interval were reported correctly. Performed at: [address] [id number] Nurse Aide Evaluator: Francisco Mathew MD, Phone: [phone] 23 Reference intervals for vitamin A determined from National Health and Nutrition Examination Survey, 0905-2093. Individuals with vitamin A less than 20 ug/dL are considered vitamin A deficient and those with serum concentrations less than 10 ug/dL are considered severely deficient. This test was developed and its performance characteristics determined by [facility]. It has not been cleared or approved by the Food and Drug Administration. Performed at: [facility] [id number] Nurse Aide Evaluator: Francisco Mathew MD, Phone: [phone] Performed at: [facility] [id number] Nurse Aide Evaluator: Francisco Mathew MD, Phone: [phone] 25 Note: Persistent reduction for 3 months or more in an eGFR <60 mL/min/1.73 m2 defines CKD. Patients with eGFR values >/=60 mL/min/1.73 m2 may also have CKD if evidence of persistent proteinuria is present. The original MDRD equation for estimated GFR is not valid for patients less than 18 years of age. Additional information may be found at www.kdoqi.org. 26 Reference Guidelines*: Desirable: ........... < 200 mg/dL Borderline High: ..... 200-239 mg/dL High: ................ >=240 mg/dL * The National Cholesterol Education Program (NCEP) 27 Reference Guidelines*: Normal: ............. < 150 mg/dL Borderline High: .... 150-199 mg/dL High: ............... 200-499 mg/dL Very High: .......... > 500 mg/dL * Source: National Cholesterol Education Program (NCEP) 28 Reference Guidelines*: Low HDL: ..... < 40 mg/dL Normal: ..... 40-60 mg/dL Desirable: ... > 60 mg/dL *The National Cholesterol Education Program(NCEP) 29 Reference Guidelines*: Optimal:........... <100 mg/dL Near Optimal....... 100-129 mg/dL Borderline High.... 130-159 mg/dL High............... 160-189 mg/dL Very High.......... >=190 mg/dL * Source: National Cholesterol Education Program (NCEP) 30 Relative blood cell counts (%) should be compared with absolute cell counts (cells/mcL). Relative counts may not be clinically meaningful if the absolute count of one or more cell type is decreased. Reference ranges for relative cell counts derived from: A Manual of Laboratory and Diagnostics Tests, 9th Ed, [employer], 2015. Pediatric Reference Intervals, 7th Ed, [facility] Press, 2011. 31 The Fely calculation is a validated novel method that provides better accuracy than the Friedewald equation in the estimation of LDL-C, particularly when TG levels are 150-400 mg/dL and LDL-C levels are lower than 70 mg/dL. Reference: Elmer MAK et al. Comparison of a Novel Method vs the Friedewald Equation for Estimating Low-Density Lipoprotein Cholesterol Levels From the Standard Lipid Profile. SNEAHL. 2013;310(19): 8768-6572. Desirable range <100 mg/dL for patients with CHD or Diabetes and <70 mg/dL for Diabetic patients with known heart disease 32 For patients with diabetes plus 1 major ASCVD risk factor, treating to a non-HDL-C goal of <100 mg/dL (LDL-C of <70 mg/ dL) is considered a therapeutic option. 33 GLUCOSE REFERENCE RANGE BASED ON FASTING SPECIMEN. 34 Vitamin D3, 1,25(OH)2 indicates both endogenous production and supplementation. Vitamin D2, 1,25(OH)2 is an indicator of exogeous sources, such as diet or supplementation. Interpretation and therapy are based on measurement of Vitamin D,1,25(OH)2, Total. This test was developed and its analytical performance characteristics have been determined by [facility] [place]. It has not been cleared or approved by the FDA. This assay has been validated pursuant to the CLIA regulations and is used for clinical purposes. 35 25-OHD3 indicates both endogenous production and supplementation. 25-OHD2 is an indicator of exogenous sources such as diet or supplementation. Therapy is based on measurement of Total 25-OHD, with levels <20 ng/mL indicative of Vitamin D deficiency while levels between 20 ng/mL and 30 ng/mL suggest insufficiency. Optimal levels are > or=30 ng/mL. For more information on this test, go to http://education.Inventables/faq/CFH357 36 Vitamin supplementation within 24 hours prior to blood draw may affect the accuracy of the results. This test was developed and its analytical performance characteristics have been determined by [facility]. It has not been cleared or approved by the U.S. Food and Drug Administration. This assay has been validated pursuant to the CLIA regulations and is used for clinical purposes. 37 Levels of alpha-tocopherol <5 mg/L are consistent with Vitamin E deficiency in adults. 38 Vitamin supplementation within 24 hours prior to blood draw may affect the accuracy of the results. This test was developed and its analytical performance characteristics have been determined by [facility] [place], [place]. It has not been cleared or approved by the U.S. Food and Drug Administration. This assay has been validated pursuant to the CLIA regulations and is used for clinical purposes. 39 Staffing And Scheduling Coordinator: [id number] Staffing And Scheduling Coordinator: [id number] RAMA CHAUHAN 41 No serological evidence of celiac disease. tTG IgA may normalize in individuals with celiac disease who maintain a gluten-free diet. Consider HLA DQ2 and DQ8 testing to rule out celiac disease. Celiac disease is extremely rare in the absence of DQ2 or DQ8. 42 Value Interpretation <4 U/mL: No Antibody Detected >or=4 U/mL: Antibody Detected 43 FIRST MORNING SPECIMENS GENERALLY CONTAIN THE HIGHEST CONCENTRATION OF HCG AND ARE RECOMMENDED FOR EARLY DETECTION OF . 44 Note: Persistent reduction for 3 months or more in an eGFR <60 mL/min/1.73 m2 defines CKD. Patients with eGFR values >/=60 mL/min/1.73 m2 may also have CKD if evidence of persistent proteinuria is present. The original MDRD equation for estimated GFR is not valid for patients less than 18 years of age. Additional information may be found at www.kdoqi.org. 45 Reference Guidelines*: Optimal:........... <100 mg/dL Near Optimal....... 100-129 mg/dL Borderline High.... 130-159 mg/dL High............... 160-189 mg/dL Very High.......... >=190 mg/dL * Source: National Cholesterol Education Program (NCEP) 46 Performed at: - [facility] [address] [id number] Nurse Aide Evaluator: Ute Herrera MD, Phone: [phone] Performed at: - [facility] [address] [id number] Nurse Aide Evaluator: Francisco Mathew MD, Phone: [phone] 47 Low positive Thyroglobulin antibodies are seen in a portion of the asymptomatic populations. Antithyroglobulin antibodies measured by [facility] 48 REFERENCE RANGE: <1.0 Negative 1.0 to 1.5 Weak Positive 1.6 to 2.5 Moderate Positive >2.5 Strong Positive 49 This test was performed using a kit that has not been approved or cleared by the FDA. The analytical performance characteristics of this test have been determined by [facility]. This test should not be used for diagnosis without confirmation by other medically established means. 50 QUERY: Is the Patient Fasting? N 51 NORMALLY MENSTRUATING FEMALES: Follicular Phase:............... 2.3-12.6 mIU/mL Mid-Cycle Peak:................. 5.2-17.5 mIU/mL Luteal Phase:................... 1.7-9.5 mIU/mL POSTMENOPAUSAL FEMALES: On menopausal hormone therapy (MHT)... 5.9-72.8 mIU/mL Not on MHT ........................... 0.7-10.8 mIU/mL 52 Pubertal adults FEMALES, menstrual cycle phases: Follicular Phase............. 1.9-12.8 mIU/mL Mid-Cycle Peak............... 22.2-76.1 mIU/mL Luteal Phase................. 0.6-13.5 mIU/mL Post-meonpausal FEMALE: On menopausal hormone therapy (MHT) ... 1.1-52.4 mIU/mL Not on MHT ............................ 8.6-61.8 mIU/mL 53 Prepubertal <40 Female Cycle: 1-10 Days 61 - 394 11-20 Days 122 - 437 21-30 Days 156 - 350 Post-Menopausal <40 HMG Treatment for Ovulation Induction: 400 - 800 54 Follicular phase 0.2 - 1.5 Luteal phase 1.7 - 27.0 Ovulation phase 0.8 - 3.0 First trimester 8.8 - 48.6 Second trimester 12.4 - 75.8 Third trimester 58.5 - 222.3 Postmenopausal 0.1 - 0.8 Performed at: - [facility] [id number] Nurse Aide Evaluator: Ute Herrera MD, Phone: [phone] Performed at: - [facility] [id number] Nurse Aide Evaluator: Francisco Mathew MD, Phone: [phone] 55 FIRST MORNING SPECIMENS GENERALLY CONTAIN THE HIGHEST CONCENTRATION OF HCG AND ARE RECOMMENDED FOR EARLY DETECTION OF . 56 Negative 0 - 19 Weak Positive 20 - 30 Moderate to Strong Positive >30 57 Negative 0 - 19 Weak Positive 20 - 30 Moderate to Strong Positive >30 58 Negative 0 - 3 Weak Positive 4 - 10 Positive >10 Tissue Transglutaminase (tTG) has been identified as the endomysial antigen. Studies have demonstr- ated that endomysial IgA antibodies have over 99% specificity for gluten sensitive enteropathy. 59 Negative 0 - 5 Weak Positive 6 - 9 Positive >9 Performed at: [facility] [id number] Nurse Aide Evaluator: Ute Herrera MD, Phone: [phone] 60 Note: Persistent reduction for 3 months or more in an eGFR <60 mL/min/1.73 m2 defines CKD. Patients with eGFR values >/=60 mL/min/1.73 m2 may also have CKD if evidence of persistent proteinuria is present. The original MDRD equation for estimated GFR is not valid for patients less than 18 years of age. Additional information may be found at www.kdoqi.org. 61 Vitamin D deficiency has been defined by the [place] of Medicine and an Endocrine Society practice guideline as a level of serum 25-OH vitamin D less than 20 ng/mL (1,2). The Endocrine Society went on to further define vitamin D insufficiency as a level between 21 and 29 ng/mL (2). 1. IOM ([place] of Medicine). 2010. Dietary reference intakes for calcium and D. [place]: The National Academies Press. 2. Karen MF, [place], Nando DURAN, et al. Evaluation, treatment, and prevention of vitamin D deficiency: an Endocrine Society clinical practice guideline. JCEM. 2010; 96(7):1911-30. Performed at: [facility] [id number] Nurse Aide Evaluator: Ute Herrera MD, Phone: [phone] 62 RUN DATE: 01/02/14 [facility] LAB LIVE PAGE 1 RUN TIME: [id number] [place] [id number] Specimen Inquiry Name: MARILYNN RIVERA : [address]: Ace Mcgee MD Acct: [id number] Unit: [id number] AGE: 33 Location: [facility] Re12/31/13 SEX: F Status: DEP ER SPEC: [id number] SHANTELLE: 12/31/13-[address] [facility] [address]: Ace Mcgee MD REQ: [id number] RECD: 12/31/13 STATUS: COMP BAHR DR: Dinorah Lugo MD _ SOURCE: THROAT SPDESC: ORDERED: Throat Beta Str Procedure Result Verified Site Throat Beta Strep Culture Final 01/02/14- 0856 ML Negative For Group A Beta Streptococcus END OF REPORT * ML=Testing performed at Main Lab DEPARTMENT OF PATHOLOGY, [address] [place] [address] Adam Falcon M.D. Director [facility] # [id number] Procedures Date Code Description Status 01/19/2014 44961 Therapeutic,Prophylactic Intramuscular Inj Completed Encounters Type Date Location Provider Dx Diagnosis Office Visit 09/22/2018 Main Office Dinorah Lugo M.D. B35.9 Dermatophytosis, 1:30p unspecified S80.862A Insect bite (nonvenomous), left lower leg, initial encounter Office Visit 10/08/2017 3:30p Main Office Kev Munoz00.00 Encntr for general M.D. adult medical exam w/o abnormal findings Office Visit 01/09/2017 11:00a Main Office Dinorah Lugo Z00.00 Encntr for general M.D. adult medical exam w/o abnormal findings Office Visit 11/08/2015 2:30p Main Office Dinorah Lugo Z00.00 Encntr for general M.D. adult medical exam w/o abnormal findings Office Visit 06/07/2015 3:30p Main Office Dinorah Lugo, J02.9 Acute pharyngitis, M.D. unspecified Office Visit 02/22/2015 2:15p Main Office Dinorah Lugo J20.0 Acute bronchitis due M.D. to Mycoplasma pneumoniae Office Visit 10/26/2014 1:30p Main Office Dinorah Lugo, 724.60 Lumbar Disc Disease M.D. Office Visit 10/24/2014 11:15a Main Office Dinorah Lugo, 846.8 Sprains & Strains M.D. Sacroiliac Region Other Spec Sites Office Visit 08/10/2014 10:00a Main Office Dinorah Lugo, 788.1 Dysuria M.D. Office Visit 08/08/2014 9:45a Main Office Dinorah Lugo 788.1 Dysuria M.D. Office Visit 08/03/2014 11:00a Main Office Dinorah Lugo, 720.2 Sacroiliitis Not M.D. Elsewhere Classified 780.56 Sleep Distrubances Dysfunc Assoc W/Sleep Stages Arousal From Office Visit 07/20/2014 11:00a Main Office Dinorah Lugo, 244.8 Hypothyroidism Other M.D. Spec 780.79 Malaise And Fatigue Other Office Visit 04/25/2014 3:15p Main Office Dinorah Lugo, 472.1 Pharyngitis Chronic M.D. 995.30 Allergic Reaction Office Visit 02/22/2014 3:30p Main Office Dinorah Lugo M.D. 704.80 Folliculitis 275.2 Metabolic Disorder Magnesium Office Visit 01/19/2014 3:15p Main Office Dinorah Lugo M.D. 275.2 Metabolic Disorder Magnesium 281.1 Vitamin B12 Deficiency Anemia Other Office Visit 01/04/2014 2:45p Main Office Dinorah Lugo M.D. 278.02 Overweight 995.3 Allergy Unspec 784.0 Headache 794.8 Liver Study Abnormal 300.00 Anxiety State Unspec 462 Pharyngitis Acute 463 Tonsillitis Acute Plan of Treatment Future Appointment(s):04/14/2019 10:00 am - Dinorah Lugo M.D. at Main [id number] - Dinorah Lugo M.D.L42 Pityriasis roseaComments:self limiting should resolve on its own
--- OUTSIDE RECORDS SUMMARY | 2018-10-12 17:12 | XMS REPORT | Continuity of Care Document ---
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 Payers Date Identification Numbers Payment Provider Subscriber Policy Number: [id number] Blane Rivera PayID: [id number] [address] [address] MARIELLA Khan [id number] Advance Directives Description No Information Available Problems Description No Information Family History Date Family Member(s) Observation Comments Father Diabetes Mellitus, II Father Heart Disease Maternal Grandmother Hyperthyroidism Maternal Grandmother spinal stenosis Maternal Aunts Hypothyroidism Social History Type Date Description Comments Sex Unknown ETOH Use Denies alcohol use Tobacco Use [...] Azithromycin 2 by mouth today, 6tabs J20.0 Dinorah Lugo, 02/22/2015 - 250mg 1 by mouth day 2 M.D. 06/07/2015 Tablets thru 5 Cheratussin ac 5 milliliters 118ml J20.0 Dinorah Lugo, 02/22/2015 - every 6 hours as M.D. 06/07/2015 100-10mg/5ML Solution needed cough Pseudoephedrine HCL J20.0 Dinorah Lugo, 02/22/2015 - 30mg M.D. 06/07/2015 Tablets Lidoderm apply patch to 7units 846.8 Dinorah Lguo, 10/24/2014 - 5% Patches affected area of [...] Zyrtec Allergy tab 1 by mouth 30caps Dniorah Lugo, 01/04/2014 - 10mg every day M.D. [...] B-12 Injection Dinorah Lugo M.D. 01/19/2014 Injection Immunizations Description No Information Available Vital Signs Date Vital Result Comment 09/22/2018 1:22pm BP Systolic 104 mmHg BP [...] 0.94 mIU/L 0.40-4.50 1, [address] [facility] [address] [place], [place] [id number] [phone] T4,Free 1.1 ng/dL 0.8-1.8 CBC W/ Diff & PLT 09/22/2018 [facility] WBC 7.7 thous/L 3.8-10.[address] [place], [place] [id number] [phone] RBC 3.79 mill/L Low 3.80-5.10 Hemoglobin 11.5 g/dL Low 11.7-15.5 Hematocrit 34.2 % Low 35.0-45.0 MCV 90.4 FL 80.0-100.0 MCH 30.3 pg 27.0-33.0 MCHC 33.5 g/dL 32.0-36.0 RDW 14.3 % 11.0-15.0 Platelet Count 203 thous/L 140-400 MPV 10.1 FL 7.5-12.5 Neutrophils,Absolute 5100 cells/L [phone] Bands,Absolute PENDING Metamyelocytes,Absolute PENDING Myelocytes,Absolute PENDING Promyelocytes,Absolute [...] [facility] Sodium 139 mmol/L 135-[address] [place], [place] [id number] [phone] Potassium 3.8 mmol/L 3.5-5.3 Chloride 106 mmol/L [...] 1.9-3.7 A/G Ratio 1.6 1.0-2.5 Egfr Non-Afr. [place] Zealander 123 ML/MIN/1.73M2 > Or=60 Egfr 142 ML/MIN/1.73M2 > Or=60 Laboratory test 09/22/2018 [facility] Lyme Disease AB PENDING finding [address] W/[place] [address] (Igg,Igm) [phone] Ua RFX Micro & 11/15/2017 [facility] Urine Color YELLOW Yellow 6 Culture II [address] [place], [place] [id number] [phone] Urine Clarity CLEAR Clear Urine Glucose - Dipstick NEGATIVE mg/dL Negative Urine Bilirubin - Dipstick NEGATIVE Negative Urine Ketone TRACE mg/dL High Negative Urine Specific [place] 1.020 N 1.010-1.030 Urine Blood NEGATIVE Negative Urine PH 5.5 Low 6.5-7.5 Urine Protein - Dipstick NEGATIVE mg/dL Negative Urine Urobilinogen - Dipstick 0.2 E.U./dL N 0.2-1.0 Urine Nitrite - Dipstick NEGATIVE Negative Urine Leuk Esterase NEGATIVE Negative Source: URINE, CLEAN CAT <SEE NOTE> 7 CBS W/Automated 11/15/2017 [facility] White Blood 6.9 K/uL N 3.1-10.[address] Count [place], [place] [id number] [phone] Red Blood Count 4.43 M/uL N 3.90-5.40 [...] 40.4-72.8 Lymph % 22.0 % N 20.0-42.0 Tift % 5.1 % N 4.3-13.2 Eo% 1.7 % N 0.0-6.6 Bas% 0.4 % N 0.0-1.1 Neut# 4.90 K/uL N 1.8-7.0 Lymph # 1.52 K/uL N 1.0-4.0 Tift # 0.35 K/uL N 0.3-0.9 Eos # 0.12 K/uL N 0.0-0.5 Baso # 0.03 K/uL N 0.0-0.1 Comprehensive Metabolic 11/15/2017 [facility] Glucose 95 mg/dL N 74-[address] [place] [address] [phone] BUN 7 mg/dL N 7-18 Creatinine 0.7 mg/dL N 0.6-1.3 Glom Filtration Rate, Estimate >60 mL/min >60 If >60 mL/min >60 8 BUN/Creat 10.0 ratio Sodium 141 mmol/L N [...] N 0.2-1.0 Sgot/Ast 13 U/L Low 15-37 9 SGPT/Alt 20 U/L N 12-78 Alkaline Phosphatase 61 U/L N 45-117 Laboratory test 11/15/2017 [facility] Lipase 167 U/L N 56-[address] [place], [place] [id number] [phone] HCG,Serum (Qualitative) NEGATIVE (Negative) 10 Laboratory test 11/15/2017 [facility] Troponin-I < 0.015 [address] ng/[place] [address] [phone] Laboratory test 11/14/2017 [facility] Strep Negative Negative [address] [place] [address] [phone] LDL Cholesterol 09/26/2017 [facility] Cholesterol 109 mg/dL <200 13, Profile [address] [place] [address] [phone] Triglycerides 46 mg/dL <150 15 HDL Cholesterol 44 mg/dL >40 16 LDL-Cholesterol 56 mg/dL < 100 17 Basic Metabolic Panel 09/26/2017 [facility] Glucose 93 mg/dL N 74-[address] [place] [address] [phone] BUN 9 mg/dL N 7-18 Creatinine 0.6 mg/dL N 0.6-1.3 Glom Filtration Rate, Estimate >60 mL/min >60 If >60 mL/min >60 18 BUN/Creat 15.0 ratio Sodium 138 mmol/L N 136-145 Potassium 3.9 mmol/L N 3.5-5.1 Chloride 107 mmol/L N 98-107 Carbon Dioxide 26 mmol/L N 21-32 Anion Gap 5 mEq/L Low 8-16 Calcium 8.3 mg/dL Low 8.5-10.1 Laboratory test 09/26/2017 [facility] Vitamin A, 27.5 g/dL Low 31.2-89.1 [address] [place] [address] [phone] Vitamin B12 550 pg/mL N 193-986 Vitamin D,1,25 Dihydroxy 50.1 pg/mL 19.9-79.3 20 Vitamin E, Serum 09/26/2017 [facility] Vitamin E 6.6 mg/L 5.9-19.[address] [place], [place] [id number] [phone] Vitamin E(Gamma Tocopherol) 0.6 mg/L Low 0.7-4.9 21 CBS W/Automated 09/26/2017 [facility] White Blood 6.5 K/uL N 3.1-10.[address] [place] [address] [phone] Red Blood Count 4.05 M/uL N 3.90-5.40 [...] 40.4-72.8 Lymph % 24.0 % N 20.0-42.0 Tift % 6.3 % N 4.3-13.2 Eo% 2.2 % N 0.0-6.6 Bas% 0.3 % N 0.0-1.1 Neut# 4.34 K/uL N 1.8-7.0 Lymph # 1.55 K/uL N 1.0-4.0 Tift # 0.41 K/uL N 0.3-0.9 Eos # 0.14 K/uL N 0.0-0.5 Baso # 0.02 K/uL N 0.0-0.1 Vitamin D(1,25 & 01/09/2017 [facility] Vitamin D,1,25 49 pg/mL 18-72 25), A & E [address] (Oh)2,[place] [address] [phone] Vitamin D3,1,25 (Oh)2 49 pg/mL Vitamin D2,1,25 (Oh)2 <8 pg/mL 22 Vitamin D,25-Oh,Total 33 ng/mL 30-100 Vitamin D,25-Oh,D3 33 ng/mL Vitamin D,25-Oh,D2 <4 ng/mL 23 Vitamin A (Retinol) 43 g/dL 38-98 24 Alpha-Tocopherol 12.6 mg/L 5.7-19.9 25 Ckln-Fvtip-Qmsgjpxkiz <1.0 mg/L <=4.3 26 Laboratory test 01/09/2017 [facility] Vitamin 668 pg/mL 200-[address] B12,[place] [address] [phone] Basic Metab W/O 01/09/2017 [facility] Sodium 139 mmol/L 135-[address] [place] [address] [phone] Potassium 3.9 mmol/L 3.5-5.3 Chloride 103 mmol/L 98-110 Carbon Dioxide 26 mmol/L 20-31 Glucose 88 mg/dL 65-99 27 Urea Nitrogen 9 mg/dL 7-25 Creatinine 0.54 mg/dL 0.50-1.10 BUN/Creatinine Ratio 17.0 6-22 Lipid Panel 01/09/2017 [facility] Cholesterol 156 mg/dL <199 [facility] [place] [address] [phone] HDL Cholesterol 41 mg/dL Low >50 Cholesterol/HDL Ratio 3.8 CALC <5.0 LDL Chol,Calculated 89 mg/dL 0-100 28 Triglycerides 161 mg/dL High <150 Non-HDL Cholesterol 114 mg/dL <130 29 CBC W/ Diff & PLT 01/09/2017 [facility] WBC 7.4 thous/L 3.8-10.8 [address] [place] [address] [phone] RBC 4.36 mill/L 3.80-5.10 Hemoglobin 12.6 g/dL 11.7-15.5 Hematocrit 37.5 % 35.0-45.0 MCV 86.1 FL 80.0-100.0 MCH 29.0 pg 27.0-33.0 MCHC 33.7 g/dL 32.0-36.0 RDW 14.5 % 11.0-15.0 Platelet Count 226 thous/L 140-400 Platelet Sufficiency PENDING MPV 8.2 FL 7.5-12.5 Neutrophils,Absolute 4670 cells/L [phone] Bands,Absolute PENDING Metamyelocytes,Absolute PENDING Myelocytes,Absolute PENDING Promyelocytes,Absolute [...] Cells PENDING Basophilic Stippling PENDING Comment PENDING Laboratory test 10/31/2016 [facility] Strep Negative N Negative [address] [place] [address] [phone] Laboratory test 06/11/2016 [facility] Strep Negative N Negative [address] [place] [address] [phone] Celiac Disease 11/07/2014 [facility] Interpretation see note [address] Panel [place] [id number] [phone] Tissue Transglutam AB Iga 1 U/mL <4 34 Iga,Serum 233 mg/dL 81-463 Laboratory test 10/18/2014 [facility] Urine HCG NEGATIVE Negative [address] (Qualitative) [place] [address] [phone] Urine Screen 10/18/2014 [facility] Urine Color STRAW Yellow [address] [place] [address] [phone] Urine Clarity CLEAR Clear Urine Glucose - Dipstick NEGATIVE mg/dL Negative Urine Bilirubin - Dipstick NEGATIVE Negative Urine Ketone NEGATIVE mg/dL Negative Urine Specific [place] 1.015 1.010-1.030 Urine Blood NEGATIVE Negative Urine PH 5.5 Low 6.5-7.5 Urine Protein - Dipstick NEGATIVE mg/dL Negative Urine Urobilinogen - Dipstick 0.2 E.U./dL 0.2-1.0 Urine Nitrite - Dipstick NEGATIVE Negative Urine Leuk Esterase NEGATIVE Negative CBS W/Automated 07/21/2014 [facility] White Blood 6.8 K/uL 3.1-10.[address] [place] [address] [phone] Red Blood Count 4.32 M/uL 3.90-5.40 Hemoglobin [...] % 40.4-72.8 Lymph % 22.9 % 17.0-46.1 Tift % 5.7 % 4.3-13.2 Eo% 2.2 % 0.0-6.6 Bas% 0.3 % 0.0-1.1 Neut# 4.70 K/uL 1.0-7.0 Lymph # 1.56 K/uL Low 1.8-7.0 Tift # 0.39 K/uL 0.3-0.9 Eos # 0.15 K/uL 0.0-0.5 Baso # 0.02 K/uL 0.0-0.1 Basic Metabolic Panel 07/21/2014 [facility] Glucose 83 mg/dL 74-[address] [place] [address] [phone] BUN 11 mg/dL 7-18 Creatinine 0.7 mg/dL 0.6-1.3 Glom Filtration Rate, Estimate >60 mL/min >60 If >60 mL/min >60 36 BUN/Creat 15.7 ratio Sodium 141 mmol/L 136-145 Potassium 3.9 mmol/L 3.5-5.1 Chloride 106 mmol/L 98-107 Carbon Dioxide 30 mmol/L 21-32 Anion Gap 5 mEq/L Low 8-16 Calcium 8.4 mg/dL Low 8.5-10.1 Laboratory test 07/21/2014 [facility] Direct LDL 96.0 mg/dL [address] [place] [address] [phone] TSH+Free T4 07/21/2014 [facility] Thyroid Stim 1.14 uIU/mL 0.36- ([place] & [facility]) [address] Hormone 3.74 [place] [address] [phone] Free T4 0.94 ng/dL 0.76-1.46 Laboratory test 07/21/2014 [facility] Free T3 2.86 pg /mL 2.18-3.[address] [place] [address] [phone] Reverse T3 12.7 ng/dL 9.2-24.1 Thyroid 07/21/2014 [facility] Thyroid Peroxidase 7 IU /mL 0-34 [address] [place] [address] [phone] Laboratory 07/21/2014 [facility] Antithyroglobulin < 1.0 0.0-0.9 39 test finding [address] Antibody IU/mL [place], [place] [address] [phone] Laboratory 04/19/2014 [facility] Histone AB <1.0 U <1.0 40 test finding [address] [place] [address] [phone] Iga,Serum 261 mg/dL 81-463 Igg,Serum 1304 mg/dL [phone] Igm,Serum 130 mg/dL 48-271 Laboratory test 04/19/2014 [facility] Histamine,Plasma <1.5 0.1-1.8 [address] [place] NG/[place] [address] [phone] CBC W/ Diff & 04/11/2014 [facility] White Blood Count 9.2 K/uL 3.1-10.[address] [place] [address] [phone] Red Blood Count 4.21 M/uL 3.90-5.40 Hemoglobin [...] High 40.4-72.8 Lymph % 17.9 % 17.0-46.1 Tift % 5.2 % 4.3-13.2 Eo% 1.1 % 0.0-6.6 Bas% 0.2 % 0.0-1.1 Neut# 6.92 K/uL 1.0-7.0 Lymph # 1.64 K/uL 0.8-3.4 Tift # 0.48 K/uL 0.3-0.9 Eos # 0.10 K/uL 0.0-0.5 Baso # 0.02 K/uL 0.0-0.1 Laboratory test 04/11/2014 [facility] Vitamin B12 672 pg/mL 200-900 [address] [place], [place] [address] [phone] FSH 2.7 mIU/mL 43 Luteinizing Hormone 1.8 mIU/mL 44 Folate,RBC 04/11/2014 [facility] Folate,Hemolysate 505.9 NotEstab.ng/m [address] [place], [place] [address] [phone] Hematocrit 36.9 % 34.0-46.6 Folate,RBC 1371 ng/mL [phone] Laboratory test 04/11/2014 [facility] Estrogen,Total 83 pg/mL . [address] [place], [place] [address] [phone] Progesterone 1.1 ng/mL . 46 TSH+Free T4 04/06/2014 [facility] Thyroid Stim 1.00 uIU/mL 0.36-3.74 ([place] & [address] Hormone [facility]) [place], [place] [address] [phone] Free T4 0.92 ng/dL 0.76-1.46 Laboratory test 04/06/2014 [facility] Magnesium 1.7 mg/dL Low 1.8-2.[address] [place], [place] [address] [phone] Urine Screen 03/26/2014 [facility] Urine Color STRAW Yellow [address] [place] [address] [phone] Urine Clarity CLEAR Clear Urine Glucose - Dipstick NEGATIVE mg/dL Negative Urine Bilirubin - Dipstick NEGATIVE Negative Urine Ketone NEGATIVE mg/dL Negative Urine Specific [place] <=1.005 Low 1.010-1.030 Urine Blood NEGATIVE Negative Urine PH 6.5 6.5-7.5 Urine Protein - Dipstick NEGATIVE mg/dL Negative Urine Urobilinogen - Dipstick 0.2 E.U./dL 0.2-1.0 Urine Nitrite - Dipstick NEGATIVE Negative Urine Leuk Esterase NEGATIVE Negative Laboratory 03/26/2014 [facility] Urine HCG NEGATIVE Negative 47 test finding [address] (Qualitative) [place] [address] [phone] Laboratory 02/08/2014 [facility] Magnesium 1.6 mg/dL Low 1.8-2.4 test finding [address] [place] [address] [phone] Celiac Disease 01/04/2014 [facility] Immunoglobulin A 226 mg/dL 91-414 Comp AB [address] [place] [address] [phone] Antigliadin Abs, IgG 4 units 0-19 48 Antigliadin Abs, IgA 2 units 0-19 49 Endomysial IgA Antibody Negative Negative t-Transglutaminase IgA <2 U/mL 0-3 50 t-Transglutaminase IgG <2 U/mL 0-5 51 CBS W/Automated 01/04/2014 [facility] White Blood 9.8 K/uL 3.1-10.[address] [place] [address] [phone] Red Blood Count 4.25 M/uL 3.90-5.40 Hemoglobin [...] % 40.4-72.8 Lymph % 24.1 % 17.0-46.1 Tift % 5.2 % 4.3-13.2 Eo% 1.5 % 0.0-6.6 Bas% 0.4 % 0.0-1.1 Neut# 6.71 K/uL 1.0-7.0 Lymph # 2.35 K/uL 0.8-3.4 Tift # 0.51 K/uL 0.3-0.9 Eos # 0.15 K/uL 0.0-0.5 Baso # 0.04 K/uL 0.0-0.1 Laboratory test 01/04/2014 [facility] Magnesium 1.4 mg/dL Low 1.7-2.[address] [place] [address] [phone] Thyroid Stim Hormone 2.01 uIU/mL 0.49-4.67 Free T4 1.00 ng/dL 0.71-1.85 Basic Metabolic 01/04/2014 [facility] Glucose 101 mg/ dL 76-[address] [place] [address] [phone] BUN 8 mg/dL 5-23 Creatinine 0.8 mg/dL 0.5-1.4 Glom Filtration Rate, Estimate >60 mL/min >60 If >60 mL/min >60 52 BUN/Creat 10.0 ratio Sodium 137 mmol/L 136-145 Potassium 3.7 mmol/L 3.5-5.1 Chloride 104 mmol/L 98-107 Carbon Dioxide 28 mEq/L 18-29 Anion Gap 9 mEq/L 8-16 Calcium 8.9 mg/dL 8.5-10.1 Laboratory test 01/04/2014 [facility] Vitamin 35.7 30.0-100.0 [address] D,25-Hydroxy ng/[place] [address] [phone] Throat-Beta 12/31/2013 [facility] [place] Throat Beta (SEE [address] Strep Culture NOTE) [place] [address] [phone] 1 FASTING; MULTIPLE TESTING PRIORITIES; ROUTINE TESTING [...] Cruz, 2015. Pediatric Reference Intervals, 7th Ed, [facility] Press, 2011. 4 Reference range for high altitude clients: 18-30 mmol/L 5 GLUCOSE REFERENCE RANGE BASED ON FASTING SPECIMEN. 6 UPPER ABDOMINAL DISCOMFORT, RECOMMENDED BY CC 7 URINE, CLEAN CATCH 8 Note: Persistent reduction for 3 months or more in an eGFR <60 mL/min/1.73 m2 defines CKD. Patients with eGFR values >/=60 mL/min/1.73 m2 may also have CKD if evidence of persistent proteinuria is present. The original MDRD equation for estimated GFR is not valid for patients less than 18 years of age. Additional information may be found at www.kdoqi.org. 9 Values below the stated reference ranges of AST and ALT can be seen in normal populations. Clinical correlation is suggested. 10 Method: [employer] QuickVue One-Step Immunoassay 11 0.0 - 0.045 ng/mL: Normal 0.046 - 0.5 ng/mL: Suggestive 0.6 - 1.5 ng/mL: Consistent 12 Plasterer Spray Gun: [id number] 13 E03.8,R53.83,R94.5 E03.8,R53.83,R94.5 Z00.00 R53.8 E66.3 14 Reference Guidelines*: Desirable: ........... < 200 mg/dL Borderline High: ..... 200-239 mg/dL High: ................ >=240 mg/dL * The National Cholesterol Education Program (NCEP) 15 Reference Guidelines*: Normal: ............. < 150 mg/dL Borderline High: .... 150-199 mg/dL High: ............... 200-499 mg/dL Very High: .......... > 500 mg/dL * Source: National Cholesterol Education Program (NCEP) 16 Reference Guidelines*: Low HDL: ..... < 40 mg/dL Normal: ..... 40-60 mg/dL Desirable: ... > 60 mg/dL *The National Cholesterol Education Program(NCEP) 17 Reference Guidelines*: Optimal:........... <100 mg/dL Near Optimal....... 100-129 mg/dL Borderline High.... 130-159 mg/dL High............... 160-189 mg/dL Very High.......... >=190 mg/dL * Source: National Cholesterol Education Program (NCEP) 18 Note: Persistent reduction for 3 months or more in an eGFR <60 mL/min/1.73 m2 defines CKD. Patients with eGFR values >/=60 mL/min/1.73 m2 may also have CKD if evidence of persistent proteinuria is present. The original MDRD equation for estimated GFR is not valid for patients less than 18 years of age. Additional information may be found at www.kdoqi.org. 19 Reference intervals for vitamin A determined from National Health and Nutrition Examination Survey, 8536-5473. Individuals with vitamin A less than 20 ug/dL are considered vitamin A deficient and those with serum concentrations less than 10 ug/dL are considered severely deficient. This test was developed and its performance characteristics determined by [employer]. It has not been cleared or approved by the Food and Drug Administration. Performed at: [address] [id number] Legal Records Manager: Francisco Mathew MD, Phone: [phone] Performed at: [address] [id number] Legal Records Manager: Francisco Mathew MD, Phone: [phone] 12/15/17 2010: Vitamin E(gamma previously reported as: 0.6 L mg/L Reference intervals for alpha and gamma-tocopherol determined from National Health and Nutrition Examination Survey, 7956-6924. Individuals with alpha-tocopherol levels less than 0.5 mg/L are considered vitamin E deficient. This test was developed and its performance characteristics determined by [employer]. It has not been cleared or approved by the Food and Drug Administration. Performed at: [address] [id number] Legal Records Manager: Francisco Mathew MD, Phone: [phone] Amended result called to: [] - 12/15/17 at 2010 Reference intervals for alpha and gamma-tocopherol determined from National Health and Nutrition Examination Survey, 8410-0940. Individuals with alpha-tocopherol levels less than 5.0 mg/L are considered vitamin E deficient. This test was developed and its performance characteristics determined by [facility]. It has not been cleared or approved by the Food and Drug Administration. This is an amended report This report has been re-issued to display the correct interpretive comment. From August 18, 2017 through November 11, 2017 the comment was incorrect. The interpretive comment has been updated to appropriately reflect Vitamin E deficiency. The result and reference interval were reported correctly. Performed at: [address] [id number] Legal Records Manager: Francisco Mathew MD, Phone: [phone] 22 Vitamin D3, 1,25(OH)2 indicates both endogenous production and supplementation. Vitamin D2, 1,25(OH)2 is an indicator of exogeous sources, such as diet or supplementation. Interpretation and therapy are based on measurement of Vitamin D,1,25(OH)2, Total. This test was developed and its analytical performance characteristics have been determined by [facility], [place], [place]. It has not been cleared or approved by the FDA. This assay has been validated pursuant to the CLIA regulations and is used for clinical purposes. 23 25-OHD3 indicates both endogenous production and supplementation. 25-OHD2 is an indicator of exogenous sources such as diet or supplementation. Therapy is based on measurement of Total 25-OHD, with levels <20 ng/mL indicative of Vitamin D deficiency while levels between 20 ng/mL and 30 ng/mL suggest insufficiency. Optimal levels are > or=30 ng/mL. For more information on this test, go to http://education.Joome.[employer]/faq/[email or web address] 24 Vitamin supplementation within 24 hours prior to blood draw may affect the accuracy of the results. This test was developed and its analytical performance characteristics have been determined by [employer] [place], [place]. It has not been cleared or approved by the U.S. Food and Drug Administration. This assay has been validated pursuant to the CLIA regulations and is used for clinical purposes. 25 Levels of alpha-tocopherol <5 mg/L are consistent with Vitamin E deficiency in adults. 26 Vitamin supplementation within 24 hours prior to blood draw may affect the accuracy of the results. This test was developed and its analytical performance characteristics have been determined by [facility] [place], [place]. It has not been cleared or approved by the U.S. Food and Drug Administration. This assay has been validated pursuant to the CLIA regulations and is used for clinical purposes. 27 GLUCOSE REFERENCE RANGE BASED ON FASTING SPECIMEN. 28 The Elmer-Gonzalez calculation is a validated novel method that provides better accuracy than the Friedewald equation in the estimation of LDL-C, particularly when TG levels are 150-400 mg/dL and LDL-C levels are lower than 70 mg/dL. Reference: Elmer MAK et al. Comparison of a Novel Method vs the Friedewald Equation for Estimating Low-Density Lipoprotein Cholesterol Levels From the Standard Lipid Profile. SNEHAL. 2013;310(88): 9959-9146. Desirable range <100 mg/dL for patients with CHD or Diabetes and <70 mg/dL for Diabetic patients with known heart disease 29 For patients with diabetes plus 1 major ASCVD risk factor, treating to a non-HDL-C goal of <100 mg/dL (LDL-C of <70 mg/ dL) is considered a therapeutic option. 30 Relative blood cell counts (%) should be compared with absolute cell counts (cells/mcL). Relative counts may not be clinically meaningful if the absolute count of one or more cell type is decreased. Reference ranges for relative cell counts derived from: A Manual of Laboratory and Diagnostics Tests, 9th Ed, [employer] Cruz, 2015. Pediatric Reference Intervals, 7th Ed, [employer], 2011. 31 Plasterer Spray Gun: [id number] 32 Plasterer Spray Gun: [id number] RAMA CHAUHAN 33 No serological evidence of celiac disease. tTG IgA may normalize in individuals with celiac disease who maintain a gluten-free diet. Consider HLA DQ2 and DQ8 testing to rule out celiac disease. Celiac disease is extremely rare in the absence of DQ2 or DQ8. 34 Value Interpretation <4 U/mL: No Antibody Detected >or=4 U/mL: Antibody Detected 35 FIRST MORNING SPECIMENS GENERALLY CONTAIN THE HIGHEST CONCENTRATION OF HCG AND ARE RECOMMENDED FOR EARLY DETECTION OF . 36 Note: Persistent reduction for 3 months or more in an eGFR <60 mL/min/1.73 m2 defines CKD. Patients with eGFR values >/=60 mL/min/1.73 m2 may also have CKD if evidence of persistent proteinuria is present. The original MDRD equation for estimated GFR is not valid for patients less than 18 years of age. Additional information may be found at www.kdoqi.org. 37 Reference Guidelines*: Optimal:........... <100 mg/dL Near Optimal....... 100-129 mg/dL Borderline High.... 130-159 mg/dL High............... 160-189 mg/dL Very High.......... >=190 mg/dL * Source: National Cholesterol Education Program (NCEP) 38 Performed at: - [facility] [address] [id number] Legal Records Manager: Ute Herrera MD, Phone: [phone] Performed at: - [facility] [address] [id number] Legal Records Manager: Francisco Mathew MD, Phone: [phone] 39 Low positive Thyroglobulin antibodies are seen in a portion of the asymptomatic populations. Antithyroglobulin antibodies measured by [employer] 40 REFERENCE RANGE: <1.0 Negative 1.0 to 1.5 Weak Positive 1.6 to 2.5 Moderate Positive >2.5 Strong Positive 41 This test was performed using a kit that has not been approved or cleared by the FDA. The analytical performance characteristics of this test have been determined by [facility]. This test should not be used for diagnosis without confirmation by other medically established means. 42 QUERY: Is the Patient Fasting? N 43 NORMALLY MENSTRUATING FEMALES: Follicular Phase:............... 2.3-12.6 mIU/mL Mid-Cycle Peak:................. 5.2-17.5 mIU/mL Luteal Phase:................... 1.7-9.5 mIU/mL POSTMENOPAUSAL FEMALES: On menopausal hormone therapy (MHT)... 5.9-72.8 mIU/mL Not on MHT ........................... 0.7-10.8 mIU/mL 44 Pubertal adults FEMALES, menstrual cycle phases: Follicular Phase............. 1.9-12.8 mIU/mL Mid-Cycle Peak............... 22.2-76.1 mIU/mL Luteal Phase................. 0.6-13.5 mIU/mL Post-meonpausal FEMALE: On menopausal hormone therapy (MHT) ... 1.1-52.4 mIU/mL Not on MHT ............................ 8.6-61.8 mIU/mL 45 Prepubertal <40 Female Cycle: 1-10 Days 61 - 394 11-20 Days 122 - 437 21-30 Days 156 - 350 Post-Menopausal <40 HMG Treatment for Ovulation Induction: 400 - 800 46 Follicular phase 0.2 - 1.5 Luteal phase 1.7 - 27.0 Ovulation phase 0.8 - 3.0 First trimester 8.8 - 48.6 Second trimester 12.4 - 75.8 Third trimester 58.5 - 222.3 Postmenopausal 0.1 - 0.8 Performed at: - [facility] [id number] Legal Records Manager: Ute Herrera MD, Phone: [phone] Performed at: - [facility] [id number] Legal Records Manager: Francisco Mathew MD, Phone: [phone] 47 FIRST MORNING SPECIMENS GENERALLY CONTAIN THE HIGHEST CONCENTRATION OF HCG AND ARE RECOMMENDED FOR EARLY DETECTION OF . 48 Negative 0 - 19 Weak Positive 20 - 30 Moderate to Strong Positive >30 49 Negative 0 - 19 Weak Positive 20 - 30 Moderate to Strong Positive >30 50 Negative 0 - 3 Weak Positive 4 - 10 Positive >10 Tissue Transglutaminase (tTG) has been identified as the endomysial antigen. Studies have demonstr- ated that endomysial IgA antibodies have over 99% specificity for gluten sensitive enteropathy. 51 Negative 0 - 5 Weak Positive 6 - 9 Positive >9 Performed at: [facility] [id number] Legal Records Manager: Ute Herrera MD, Phone: [phone] 52 Note: Persistent reduction for 3 months or more in an eGFR <60 mL/min/1.73 m2 defines CKD. Patients with eGFR values >/=60 mL/min/1.73 m2 may also have CKD if evidence of persistent proteinuria is present. The original MDRD equation for estimated GFR is not valid for patients less than 18 years of age. Additional information may be found at www.kdoqi.org. 53 Vitamin D deficiency has been defined by the [place] [employer] and an Endocrine Society practice guideline as a level of serum 25-OH vitamin D less than 20 ng/mL (1,2). The Endocrine Society went on to further define vitamin D insufficiency as a level between 21 and 29 ng/mL (2). 1. IOM ([place] [employer]). 2010. Dietary reference intakes for calcium and D. [place]: The National Academies Press. 2. Karen MF, [place], Nando DURAN, et al. Evaluation, treatment, and prevention of vitamin D deficiency: an Endocrine Society clinical practice guideline. JCEM. 2010; 96(7):1911-30. Performed at: [facility] [id number] Legal Records Manager: Ute Herrera MD, Phone: [phone] 54 RUN DATE: 01/02/14 [facility] LAB LIVE PAGE 1 RUN TIME: [id number] [place] [id number] Specimen Inquiry Name: MARILYNN RIVERA : [address]: Ace Mcgee MD Acct: [id number] Unit: [id number] AGE: 33 Location: [facility] Re12/31/13 SEX: F Status: DEP ER SPEC: [id number] SHANTELLE: 12/31/13-[address]: Ace Mcgee MD REQ: [id number] RECD: 12/31/13 STATUS: LOU CARBALLO DR: Dinorah Lugo MD _ SOURCE: THROAT SPDESC: ORDERED: Throat Beta Str Procedure Result Verified Site Throat Beta Strep Culture Final 01/02/14- 0856 ML Negative For Group A Beta Streptococcus END OF REPORT * ML=Testing performed at Main Lab DEPARTMENT OF PATHOLOGY, [address] [place] [address] Adam Falcon M.D. Director [facility] # [id number] Procedures Date Code Description Status 01/19/2014 51870 Therapeutic,Prophylactic Intramuscular Inj Completed Encounters Type Date [...] Office Visit 02/22/2015 2:15p Main Office Dinorah Lugo, J20.0 Acute bronchitis due M.D. to Mycoplasma pneumoniae Office Visit 10/26/2014 1:30p Main Office Dinorah Lugo, 724.60 Lumbar Disc Disease M.D. Office Visit 10/24/2014 11:15a Main Office Dinorah Lugo, 846.8 Sprains & Strains M.D. Sacroiliac Region Other Spec Sites Office Visit 08/10/2014 10:00a Main Office Dinorah Lugo, 788.1 Dysuria M.D. Office Visit 08/08/2014 9:45a Main Office Dinorah Lugo, 788.1 Dysuria M.D. Office Visit 08/03/2014 11:00a [...] 463 Tonsillitis Acute Plan of Treatment Future Appointment(s):09/28/2018 3:30 pm - Dinorah Lugo M.D. at Main Office
--- OUTSIDE RECORDS SUMMARY | 2018-10-12 17:12 | XMS REPORT | Continuity of Care Document ---
:1980 External Reference #:[id number] Author Name Nichol Lynn Care Team Providers Name Role Phone Dinorah Lugo MD Care Team Information [employer] Unavailable Payers Date Identification Numbers Payment Provider Subscriber Policy Number: [id number] Blane Rivera PayID: [id number] [address] MARIELLA Khan [id number] Advance Directives Description No Information Available Problems [...] Medications SIG Qnty Indications Ordering Provider Date No Active Medications Unknown 01/09/2017 History Medications Zithromax 2 by mouth day 1, 6pills [...] 14-0.4mg Tablets Multivitamins With 1 po daily 100units Dinoarh Lugo, 01/19/2014 - Minerals M.D. 01/19/2014 Magnesium Gluconate 1 by mouth [...] Levocetirizine 1 by mouth every 90tabs Dinorah Lugo 01/04/2014 - Dihydrochloride day M.D. 01/04/2014 5mg [...] Date Facility Test Result H/L Range Note Ua RFX Micro & 11/15/2017 [facility] Urine Color YELLOW Yellow 1 Culture II [address] [place] [address] [phone] Urine Clarity CLEAR Clear Urine Glucose - Dipstick NEGATIVE mg/dL Negative Urine Bilirubin - Dipstick NEGATIVE Negative Urine Ketone TRACE mg/dL High Negative Urine Specific Wolbach 1.020 N 1.010-1.030 Urine Blood NEGATIVE Negative Urine PH 5.5 Low 6.5-7.5 Urine Protein - Dipstick NEGATIVE mg/dL Negative Urine Urobilinogen - Dipstick 0.2 E.U./dL N 0.2-1.0 Urine Nitrite - Dipstick NEGATIVE Negative Urine Leuk Esterase NEGATIVE Negative Source: URINE, CLEAN CAT <SEE NOTE> 2 CBS W/Automated 11/15/2017 [facility] White Blood 6.9 K/uL N 3.1-10.[address] [place] [address] [phone] Red Blood Count 4.43 M/uL N 3.90-5.40 [...] 40.4-72.8 Lymph % 22.0 % N 20.0-42.0 [place] % 5.1 % N 4.3-13.2 Eo% 1.7 % N 0.0-6.6 Bas% 0.4 % N 0.0-1.1 Neut# 4.90 K/uL N 1.8-7.0 Lymph # 1.52 K/uL N 1.0-4.0 [place] # 0.35 K/uL N 0.3-0.9 Eos # 0.12 K/uL N 0.0-0.5 Baso # 0.03 K/uL N 0.0-0.1 Comprehensive Metabolic 11/15/2017 [facility] Glucose 95 mg/dL N 74-[address] [place], [place] [id number] [phone] BUN 7 mg/dL N 7-18 Creatinine 0.7 mg/dL N 0.6-1.3 Glom Filtration Rate, Estimate >60 mL/min >60 If >60 mL/min >60 3 BUN/Creat 10.0 ratio Sodium 141 mmol/L N [...] N 0.2-1.0 Sgot/Ast 13 U/L Low 15-37 4 SGPT/Alt 20 U/L N 12-78 Alkaline Phosphatase 61 U/L N 45-117 Laboratory test 11/15/2017 [facility] Lipase 167 U/L N 56-[address] [place], [place] [id number] [phone] HCG,Serum (Qualitative) NEGATIVE (Negative) 5 Laboratory test 11/15/2017 [facility] Troponin-I < 0.015 [address] ng/mL [place], [place] [address] [phone] Laboratory test 11/14/2017 [facility] Rapid Strep Negative Negative [address] Molecular [place], [place] [id number] [phone] CBS W/Automated 09/26/2017 [facility] White Blood 6.5 K/uL N 3.1-10.7 [address] [place] [address] [phone] Red Blood Count 4.05 M/uL N 3.90-5.40 [...] 40.4-72.8 Lymph % 24.0 % N 20.0-42.0 [place] % 6.3 % N 4.3-13.2 Eo% 2.2 % N 0.0-6.6 Bas% 0.3 % N 0.0-1.1 Neut# 4.34 K/uL N 1.8-7.0 Lymph # 1.55 K/uL N 1.0-4.0 [place] # 0.41 K/uL N 0.3-0.9 Eos # 0.14 K/uL N 0.0-0.5 Baso # 0.02 K/uL N 0.0-0.1 LDL Cholesterol 09/26/2017 [facility] Cholesterol 109 mg/dL <200 [address] [place] [address] [phone] Triglycerides 46 mg/dL <150 10 HDL Cholesterol 44 mg/dL >40 11 LDL-Cholesterol 56 mg/dL < 100 12 Basic Metabolic Panel 09/26/2017 [facility] Glucose 93 mg/dL N 74-[address] [place], [place] [address] [phone] BUN 9 mg/dL N 7-18 Creatinine 0.6 mg/dL N 0.6-1.3 Glom Filtration Rate, Estimate >60 mL/min >60 If >60 mL/min >60 13 BUN/Creat 15.0 ratio Sodium 138 mmol/L N 136-145 Potassium 3.9 mmol/L N 3.5-5.1 Chloride 107 mmol/L N 98-107 Carbon Dioxide 26 mmol/L N 21-32 Anion Gap 5 mEq/L Low 8-16 Calcium 8.3 mg/dL Low 8.5-10.1 Laboratory test 09/26/2017 [facility] Vitamin A, 27.5 g/dL Low 31.2-89.1 [address] Serum [place], [place] [address] [phone] Vitamin B12 550 pg/mL N 193-986 Vitamin D,1,25 Dihydroxy 50.1 pg/mL 19.9-79.3 15 Vitamin E, Serum 09/26/2017 [facility] Vitamin E 6.6 mg/L 5.9-19.[address] [place], [place] [address] [phone] Vitamin E(Gamma Tocopherol) 0.6 mg/L Low 0.7-4.9 16 Vitamin D(1,25 & 01/09/2017 [facility] Vitamin D,1,25 49 pg/mL 18-72 25), A & E [address] (Oh)2,Total [place], [place] [address] [phone] Vitamin D3,1,25 (Oh)2 49 pg/mL Vitamin D2,1,25 (Oh)2 <8 pg/mL 17 Vitamin D,25-Oh,Total 33 ng/mL 30-100 Vitamin D,25-Oh,D3 33 ng/mL Vitamin D,25-Oh,D2 <4 ng/mL 18 Vitamin A (Retinol) 43 g/dL 38-98 19 Alpha-Tocopherol 12.6 mg/L 5.7-19.9 20 Hnui-Hfrpi-Mbgyvixrcr <1.0 mg/L <=4.3 21 Laboratory test 01/09/2017 [facility] Vitamin 668 pg/mL 200-[address] [place] B12,[place] [address] [phone] Basic Metab W/O 01/09/2017 [facility] Sodium 139 mmol/L 135-[address] [place] [address] [phone] Potassium 3.9 mmol/L 3.5-5.3 Chloride 103 mmol/L 98-110 Carbon Dioxide 26 mmol/L 20-31 Glucose 88 mg/dL 65-99 22 Urea Nitrogen 9 mg/dL 7-25 Creatinine 0.54 mg/dL 0.50-1.10 BUN/Creatinine Ratio 17.0 6-22 Lipid Panel 01/09/2017 [facility] Cholesterol 156 mg/dL <[address] [place] [address] [phone] HDL Cholesterol 41 mg/dL Low >50 Cholesterol/HDL Ratio 3.8 CALC <5.0 LDL Chol,Calculated 89 mg/dL 0-100 23 Triglycerides 161 mg/dL High <150 Non-HDL Cholesterol 114 mg/dL <130 24 CBC W/ Diff & PLT 01/09/2017 [facility] WBC 7.4 thous/L 3.8-10.[address] [place] [address] [phone] RBC 4.36 mill/L 3.80-5.10 Hemoglobin 12.6 g/dL 11.7-15.5 Hematocrit 37.5 % 35.0-45.0 MCV 86.1 FL 80.0-100.0 MCH 29.0 pg 27.0-33.0 MCHC 33.7 g/dL 32.0-36.0 RDW 14.5 % 11.0-15.0 Platelet Count 226 thous/L 140-400 Platelet Sufficiency PENDING MPV 8.2 FL 7.5-12.5 Neutrophils,Absolute 4670 cells/L [phone] Bands,Absolute PENDING Metamyelocytes,Absolute PENDING Myelocytes,Absolute PENDING Promyelocytes,Absolute PENDING Lymphocytes,Absolute 2140 cells/L [phone] Monocytes,Absolute 360 cells/L 200-950 Eosinophils,Absolute 150 cells/L 15-500 Basophils,Absolute 30 cells/L 0-200 Blast Cells,Absolute PENDING Nucleated RBC,Absolute PENDING Total Neutrophils,% 64 % 40-75 Bands,% PENDING Metamyelocytes,% PENDING Myelocytes,% PENDING Promyelocytes,% PENDING Total Lymphocytes,% 29 % 12-47 Monocytes,% 5 % 4-12 Eosinophils,% 2 % 0-4 Basophils,% 0 % 0-1 25 Blasts,% PENDING Nucleated RBC PENDING RBC Morphology PENDING Anisocytosis PENDING Poikilocytosis PENDING Microcytosis PENDING Macrocytosis PENDING Polychromasia PENDING Hypochromasia PENDING Target Cells PENDING Basophilic Stippling PENDING Comment PENDING Laboratory test 10/31/2016 [facility] Rapid Strep Negative N Negative 26 finding [address] [employer] [place], [place] [address] [phone] Laboratory test 06/11/2016 [facility] Strep Negative N Negative 27 finding [address] [place], [place] [address] [phone] Celiac Disease 11/07/2014 [facility] Interpretation see note [address] [place] [address] [phone] Tissue Transglutam AB Iga 1 U/mL <4 29 Iga,Serum 233 mg/dL 81-463 Laboratory test 10/18/2014 [facility] Urine HCG NEGATIVE Negative [address] (Qualitative) [place], [place] [address] [phone] Urine Screen 10/18/2014 [facility] Urine Color STRAW Yellow [address] [place] [address] [phone] Urine Clarity CLEAR Clear Urine Glucose - Dipstick NEGATIVE mg/dL Negative Urine Bilirubin - Dipstick NEGATIVE Negative Urine Ketone NEGATIVE mg/dL Negative Urine Specific Wolbach 1.015 1.010-1.030 Urine Blood NEGATIVE Negative Urine PH 5.5 Low 6.5-7.5 Urine Protein - Dipstick NEGATIVE mg/dL Negative Urine Urobilinogen - Dipstick 0.2 E.U./dL 0.2-1.0 Urine Nitrite - Dipstick NEGATIVE Negative Urine Leuk Esterase NEGATIVE Negative CBS W/Automated 07/21/2014 [facility] White Blood 6.8 K/uL 3.1-10.[address] [place] [address] [phone] Red Blood Count 4.32 M/uL 3.90-5.40 Hemoglobin [...] % 40.4-72.8 Lymph % 22.9 % 17.0-46.1 [place] % 5.7 % 4.3-13.2 Eo% 2.2 % 0.0-6.6 Bas% 0.3 % 0.0-1.1 Neut# 4.70 K/uL 1.0-7.0 Lymph # 1.56 K/uL Low 1.8-7.0 [place] # 0.39 K/uL 0.3-0.9 Eos # 0.15 K/uL 0.0-0.5 Baso # 0.02 K/uL 0.0-0.1 Basic Metabolic Panel 07/21/2014 [facility] Glucose 83 mg/dL 74-[address] [place] [address] [phone] BUN 11 mg/dL 7-18 Creatinine 0.7 mg/dL 0.6-1.3 Glom Filtration Rate, Estimate >60 mL/min >60 If >60 mL/min >60 31 BUN/Creat 15.7 ratio Sodium 141 mmol/L 136-145 Potassium 3.9 mmol/L 3.5-5.1 Chloride 106 mmol/L 98-107 Carbon Dioxide 30 mmol/L 21-32 Anion Gap 5 mEq/L Low 8-16 Calcium 8.4 mg/dL Low 8.5-10.1 Laboratory test 07/21/2014 [facility] Direct LDL 96.0 mg/dL [address] Cholesterol [place] [address] [phone] TSH+Free T4 07/21/2014 [facility] Thyroid Stim 1.14 uIU/mL 0.36- ([place] [facility]) [address] Hormone [address] [place] [address] [phone] Free T4 0.94 ng/dL 0.76-1.46 Laboratory test 07/21/2014 [facility] Free T3 2.86 pg /mL 2.18-3.[address] [place] [address] [phone] Reverse T3 12.7 ng/dL 9.2-24.1 Thyroid 07/21/2014 [facility] Thyroid Peroxidase 7 IU /mL 0-34 [address] [place] [address] [phone] Laboratory 07/21/2014 [facility] Antithyroglobulin < 1.0 0.0-0.9 34 test finding [address] Antibody IU/[place] [address] [phone] Laboratory 04/19/2014 [facility] Histone AB <1.0 U <1.0 35 test finding [address] [place] [address] [phone] Iga,Serum 261 mg/dL 81-463 Igg,Serum 1304 mg/dL [phone] Igm,Serum 130 mg/dL 48-271 Laboratory test 04/19/2014 [facility] Histamine,Plasma <1.5 0.1-1.8 [address] [place] NG/[place] [address] [phone] CBC W/ Diff & 04/11/2014 [facility] White Blood Count 9.2 K/uL 3.1-10.[address] [place] [address] [phone] Red Blood Count 4.21 M/uL 3.90-5.40 Hemoglobin [...] High 40.4-72.8 Lymph % 17.9 % 17.0-46.1 [place] % 5.2 % 4.3-13.2 Eo% 1.1 % 0.0-6.6 Bas% 0.2 % 0.0-1.1 Neut# 6.92 K/uL 1.0-7.0 Lymph # 1.64 K/uL 0.8-3.4 [place] # 0.48 K/uL 0.3-0.9 Eos # 0.10 K/uL 0.0-0.5 Baso # 0.02 K/uL 0.0-0.1 Laboratory test 04/11/2014 [facility] Vitamin B12 672 pg/mL 200-900 [address] [place] [address] [phone] FSH 2.7 mIU/mL 38 Luteinizing Hormone 1.8 mIU/mL 39 Folate,RBC 04/11/2014 [facility] Folate,Hemolysate 505.9 NotEstab.ng/m [address] [place] [address] [phone] Hematocrit 36.9 % 34.0-46.6 Folate,RBC 1371 ng/mL [phone] Laboratory test 04/11/2014 [facility] Estrogen,Total 83 pg/mL . [address] [place] [address] [phone] Progesterone 1.1 ng/mL . 41 TSH+Free T4 04/06/2014 [facility] Thyroid Stim 1.00 uIU/mL 0.36-3.74 ([place] & [address] Hormone [facility]) [place] [address] [phone] Free T4 0.92 ng/dL 0.76-1.46 Laboratory test 04/06/2014 [facility] Magnesium 1.7 mg/dL Low 1.8-2.[address] [place] [address] [phone] Laboratory test 03/26/2014 [facility] Urine HCG NEGATIVE Negative [address] (Qualitative) [place] [address] [phone] Urine Screen 03/26/2014 [facility] Urine Color STRAW Yellow [address] [place] [address] [phone] Urine Clarity CLEAR Clear Urine Glucose - Dipstick NEGATIVE mg/dL Negative Urine Bilirubin - Dipstick NEGATIVE Negative Urine Ketone NEGATIVE mg/dL Negative Urine Specific Wolbach <=1.005 Low 1.010-1.030 Urine Blood NEGATIVE Negative Urine PH 6.5 6.5-7.5 Urine Protein - Dipstick NEGATIVE mg/dL Negative Urine Urobilinogen - Dipstick 0.2 E.U./dL 0.2-1.0 Urine Nitrite - Dipstick NEGATIVE Negative Urine Leuk Esterase NEGATIVE Negative Laboratory test 02/08/2014 [facility] Magnesium 1.6 mg/dL Low 1.8-2.[address] [place] [address] [phone] CBS W/Automated 01/04/2014 [facility] White Blood 9.8 K/uL 3.1-10.[address] [place] [address] [phone] Red Blood Count 4.25 M/uL 3.90-5.40 Hemoglobin [...] % 40.4-72.8 Lymph % 24.1 % 17.0-46.1 [place] % 5.2 % 4.3-13.2 Eo% 1.5 % 0.0-6.6 Bas% 0.4 % 0.0-1.1 Neut# 6.71 K/uL 1.0-7.0 Lymph # 2.35 K/uL 0.8-3.4 [place] # 0.51 K/uL 0.3-0.9 Eos # 0.15 K/uL 0.0-0.5 Baso # 0.04 K/uL 0.0-0.1 Celiac Disease 01/04/2014 [facility] Immunoglobulin A 226 mg/dL 91-414 Comp AB Profile [address] [place] [address] [phone] Antigliadin Abs, IgG 4 units 0-19 43 Antigliadin Abs, IgA 2 units 0-19 44 Endomysial IgA Antibody Negative Negative t-Transglutaminase IgA <2 U/mL 0-3 45 t-Transglutaminase IgG <2 U/mL 0-5 46 Laboratory test 01/04/2014 [facility] Magnesium 1.4 mg/dL Low 1.7-2.[address] [place], [place] [address] [phone] Thyroid Stim Hormone 2.01 uIU/mL 0.49-4.67 Free T4 1.00 ng/dL 0.71-1.85 Basic Metabolic 01/04/2014 [facility] Glucose 101 mg/ dL 76-[address] [place] [address] [phone] BUN 8 mg/dL 5-23 Creatinine 0.8 mg/dL 0.5-1.4 Glom Filtration Rate, Estimate >60 mL/min >60 If >60 mL/min >60 47 BUN/Creat 10.0 ratio Sodium 137 mmol/L 136-145 Potassium 3.7 mmol/L 3.5-5.1 Chloride 104 mmol/L 98-107 Carbon Dioxide 28 mEq/L 18-29 Anion Gap 9 mEq/L 8-16 Calcium 8.9 mg/dL 8.5-10.1 Laboratory test 01/04/2014 [facility] Vitamin 35.7 30.0-100.0 [address] D,25-Hydroxy ng/[place] [address] [phone] Throat-Beta 12/31/2013 [place] [employer] Throat Beta ([address] Strep Culture NOTE) [place] [address] [phone] 1 UPPER ABDOMINAL DISCOMFORT, RECOMMENDED BY CC 2 URINE, CLEAN CATCH 3 Note: Persistent reduction for 3 months or more in an eGFR <60 mL/min/1.73 m2 defines CKD. Patients with eGFR values >/=60 mL/min/1.73 m2 may also have CKD if evidence of persistent proteinuria is present. The original MDRD equation for estimated GFR is not valid for patients less than 18 years of age. Additional information may be found at www.kdoqi.org. 4 Values below the stated reference ranges of AST and ALT can be seen in normal populations. Clinical correlation is suggested. 5 Method: [employer] One-Step Immunoassay 6 0.0 - 0.045 ng/mL: Normal 0.046 - 0.5 ng/mL: Suggestive 0.6 - 1.5 ng/mL: Consistent 7 Assistant Manager Quality Management: [id number] E03.8,R53.83,R94.5 E03.8,R53.83,R94.5 Z00.00 R53.8 E66.3 9 Reference Guidelines*: Desirable: ........... < 200 mg/dL Borderline High: ..... 200-239 mg/dL High: ................ >=240 mg/dL * The National Cholesterol Education Program (NCEP) 10 Reference Guidelines*: Normal: ............. < 150 mg/dL Borderline High: .... 150-199 mg/dL High: ............... 200-499 mg/dL Very High: .......... > 500 mg/dL * Source: National Cholesterol Education Program (NCEP) 11 Reference Guidelines*: Low HDL: ..... < 40 mg/dL Normal: ..... 40-60 mg/dL Desirable: ... > 60 mg/dL *The National Cholesterol Education Program(NCEP) 12 Reference Guidelines*: Optimal:........... <100 mg/dL Near Optimal....... 100-129 mg/dL Borderline High.... 130-159 mg/dL High............... 160-189 mg/dL Very High.......... >=190 mg/dL * Source: National Cholesterol Education Program (NCEP) 13 Note: Persistent reduction for 3 months or more in an eGFR <60 mL/min/1.73 m2 defines CKD. Patients with eGFR values >/=60 mL/min/1.73 m2 may also have CKD if evidence of persistent proteinuria is present. The original MDRD equation for estimated GFR is not valid for patients less than 18 years of age. Additional information may be found at www.kdoqi.org. 14 Reference intervals for vitamin A determined from National Health and Nutrition Examination Survey, 3782-1206. Individuals with vitamin A less than 20 ug/dL are considered vitamin A deficient and those with serum concentrations less than 10 ug/dL are considered severely deficient. This test was developed and its performance characteristics determined by [employer]. It has not been cleared or approved by the Food and Drug Administration. Performed at: [facility] [id number] Medicare Insurance Specialist: Francisco Mathew MD, Phone: [phone] Performed at: [facility] [id number] Medicare Insurance Specialist: Francisco Mathew MD, Phone: [phone] 12/15/17 2010: Vitamin E(gamma previously reported as: 0.6 L mg/L Reference intervals for alpha and gamma-tocopherol determined from National Health and Nutrition Examination Survey, 9447-5664. Individuals with alpha-tocopherol levels less than 0.5 mg/L are considered vitamin E deficient. This test was developed and its performance characteristics determined by [facility]. It has not been cleared or approved by the Food and Drug Administration. Performed at: [address] [id number] Medicare Insurance Specialist: Francisco Mathew MD, Phone: [phone] Amended result called to: [] - 12/15/17 at 2010 Reference intervals for alpha and gamma-tocopherol determined from National Health and Nutrition Examination Survey, 6644-4229. Individuals with alpha-tocopherol levels less than 5.0 mg/L are considered vitamin E deficient. This test was developed and its performance characteristics determined by [facility]. It has not been cleared or [...] reference interval were reported correctly. Performed at: [address] [id number] Medicare Insurance Specialist: Francisco Mathew MD, Phone: [phone] 17 Vitamin D3, 1,25(OH)2 indicates both endogenous production and supplementation. Vitamin D2, 1,25(OH)2 is an indicator of exogeous sources, such as diet or supplementation. Interpretation and therapy are based on measurement of Vitamin D,1,25(OH)2, Total. This test was developed and its analytical performance characteristics have been determined by [facility], [place], [place]. It has not been cleared or approved by the FDA. This assay has been validated pursuant to the CLIA regulations and is used for clinical purposes. 18 25-OHD3 indicates both endogenous production and supplementation. 25-OHD2 is an indicator of exogenous sources such as diet or supplementation. Therapy is based on measurement of Total 25-OHD, with levels <20 ng/mL indicative of Vitamin D deficiency while levels between 20 ng/mL and 30 ng/mL suggest insufficiency. Optimal levels are > or=30 ng/mL. For more information on this test, go to http://education.[employer]/faq/QGZ245 19 Vitamin supplementation within 24 hours prior to blood draw may affect the accuracy of the results. This test was developed and its analytical performance characteristics have been determined by [facility] [place] It has not been cleared or approved by the U.S. Food and Drug Administration. This assay has been validated pursuant to the CLIA regulations and is used for clinical purposes. 20 Levels of alpha-tocopherol <5 mg/L are consistent with Vitamin E deficiency in adults. 21 Vitamin supplementation within 24 hours prior to blood draw may affect the accuracy of the results. This test was developed and its analytical performance characteristics have been determined by [facility] [place]. It has not been cleared or approved by the U.S. Food and Drug Administration. This assay has been validated pursuant to the CLIA regulations and is used for clinical purposes. 22 GLUCOSE REFERENCE RANGE BASED ON FASTING SPECIMEN. 23 The Fely calculation is a validated novel method that provides better accuracy than the Friedewald equation in the estimation of LDL-C, particularly when TG levels are 150-400 mg/dL and LDL-C levels are lower than 70 mg/dL. Reference: Elmer MAK et al. Comparison of a Novel Method vs the Friedewald Equation for Estimating Low-Density Lipoprotein Cholesterol Levels From the Standard Lipid Profile. SNEHAL. 2013;310(19): 9649-6471. Desirable range <100 mg/dL for patients with CHD or Diabetes and <70 mg/dL for Diabetic patients with known heart disease 24 For patients with diabetes plus 1 major ASCVD risk factor, treating to a non-HDL-C goal of <100 mg/dL (LDL-C of <70 mg/ dL) is considered a therapeutic option. 25 Relative blood cell counts (%) should be compared with absolute cell counts (cells/mcL). Relative counts may not be clinically meaningful if the absolute count of one or more cell type is decreased. Reference ranges for relative cell counts derived from: A Manual of Laboratory and Diagnostics Tests, 9th Ed, [employer], 2015. Pediatric Reference Intervals, 7th Ed, [employer], 2011. 26 Assistant Manager Quality Management: [id number] 27 Assistant Manager Quality Management: [id number] RAMA CHAUHAN 28 No serological evidence of celiac disease. tTG IgA may normalize in individuals with celiac disease who maintain a gluten-free diet. Consider HLA DQ2 and DQ8 testing to rule out celiac disease. Celiac disease is extremely rare in the absence of DQ2 or DQ8. 29 Value Interpretation <4 U/mL: No Antibody Detected >or=4 U/mL: Antibody Detected 30 FIRST MORNING SPECIMENS GENERALLY CONTAIN THE HIGHEST CONCENTRATION OF HCG AND ARE RECOMMENDED FOR EARLY DETECTION OF . 31 Note: Persistent reduction for 3 months or more in an eGFR <60 mL/min/1.73 m2 defines CKD. Patients with eGFR values >/=60 mL/min/1.73 m2 may also have CKD if evidence of persistent proteinuria is present. The original MDRD equation for estimated GFR is not valid for patients less than 18 years of age. Additional information may be found at www.kdoqi.org. 32 Reference Guidelines*: Optimal:........... <100 mg/dL Near Optimal....... 100-129 mg/dL Borderline High.... 130-159 mg/dL High............... 160-189 mg/dL Very High.......... >=190 mg/dL * Source: National Cholesterol Education Program (NCEP) 33 Performed at: - [facility] [address] [id number] Medicare Insurance Specialist: Ute Herrera MD, Phone: [phone] Performed at: - [facility] [address] [id number] Medicare Insurance Specialist: Francisco Mathew MD, Phone: [phone] 34 Low positive Thyroglobulin antibodies are seen in a portion of the asymptomatic populations. Antithyroglobulin antibodies measured by [employer] 35 REFERENCE RANGE: <1.0 Negative 1.0 to 1.5 Weak Positive 1.6 to 2.5 Moderate Positive >2.5 Strong Positive 36 This test was performed using a kit that has not been approved or cleared by the FDA. The analytical performance characteristics of this test have been determined by [facility]. This test should not be used for diagnosis without confirmation by other medically established means. 37 QUERY: Is the Patient Fasting? N 38 NORMALLY MENSTRUATING FEMALES: Follicular Phase:............... 2.3-12.6 mIU/mL Mid-Cycle Peak:................. 5.2-17.5 mIU/mL Luteal Phase:................... 1.7-9.5 mIU/mL POSTMENOPAUSAL FEMALES: On menopausal hormone therapy (MHT)... 5.9-72.8 mIU/mL Not on MHT ........................... 0.7-10.8 mIU/mL 39 Pubertal adults FEMALES, menstrual cycle phases: Follicular Phase............. 1.9-12.8 mIU/mL Mid-Cycle Peak............... 22.2-76.1 mIU/mL Luteal Phase................. 0.6-13.5 mIU/mL Post-meonpausal FEMALE: On menopausal hormone therapy (MHT) ... 1.1-52.4 mIU/mL Not on MHT ............................ 8.6-61.8 mIU/mL 40 Prepubertal <40 Female Cycle: 1-10 Days 61 - 394 11-20 Days 122 - 437 21-30 Days 156 - 350 Post-Menopausal <40 HMG Treatment for Ovulation Induction: 400 - 800 41 Follicular phase 0.2 - 1.5 Luteal phase 1.7 - 27.0 Ovulation phase 0.8 - 3.0 First trimester 8.8 - 48.6 Second trimester 12.4 - 75.8 Third trimester 58.5 - 222.3 Postmenopausal 0.1 - 0.8 [facility]formed at: [facility] [address] [place], [place] [id number] Medicare Insurance Specialist: Ute Herrera MD, Phone: [phone] Performed at: - [facility] [id number] Medicare Insurance Specialist: Francisco Mathew MD, Phone: [phone] 42 FIRST MORNING SPECIMENS GENERALLY CONTAIN THE HIGHEST CONCENTRATION OF HCG AND ARE RECOMMENDED FOR EARLY DETECTION OF . 43 Negative 0 - 19 Weak Positive 20 - 30 Moderate to Strong Positive >30 44 Negative 0 - 19 Weak Positive 20 - 30 Moderate to Strong Positive >30 45 Negative 0 - 3 Weak Positive 4 - 10 Positive >10 Tissue Transglutaminase (tTG) has been identified as the endomysial antigen. Studies have demonstr- ated that endomysial IgA antibodies have over 99% specificity for gluten sensitive enteropathy. 46 Negative 0 - 5 Weak Positive 6 - 9 Positive >9 Performed at: [facility] [id number] Medicare Insurance Specialist: Ute Herrera MD, Phone: [phone] Note: Persistent reduction for 3 months or more in an eGFR <60 mL/min/1.73 m2 defines CKD. Patients with eGFR values >/=60 mL/min/1.73 m2 may also have CKD if evidence of persistent proteinuria is present. The original MDRD equation for estimated GFR is not valid for patients less than 18 years of age. Additional information may be found at www.kdoqi.org. 48 Vitamin D deficiency has been defined by the [place] of [employer] and an Endocrine Society practice guideline as a level of serum 25-OH vitamin D less than 20 ng/mL (1,2). The Endocrine Society went on to further define vitamin D insufficiency as a level between 21 and 29 ng/mL (2). 1. IOM ([place] of [employer]). 2010. Dietary reference intakes for calcium and D. [place]: The National Academies Press. 2. Karen MF, [place], Nando DURAN, et al. Evaluation, treatment, and prevention of vitamin D deficiency: an Endocrine Society clinical practice guideline. JCEM. 2010; 96(7):1911-30. Performed at: [facility] [id number] Medicare Insurance Specialist: Ute Herrera MD, Phone: [phone] RUN DATE: 01/02/14 [facility] LIVE PAGE 1 RUN TIME: [id number] [place] [id number] Specimen Inquiry Name: MARILYNN RIVERA : [address]: Ace Mcgee MD Acct: [id number] Unit: [id number] AGE: 33 Location: [facility] Re12/31/13 SEX: F Status: DEP ER SPEC: [id number] [place]: 12/31/13-1630 [facility] DR: Ace Mcgee MD REQ: [id number] RECD: 12/31/13 STATUS: LOU CARBALLO DR: Dinorah Lugo MD _ SOURCE: THROAT SPDESC: ORDERED: Throat Beta Str Procedure Result Verified Site Throat Beta Strep Culture Final 01/02/14- 0856 ML Negative For Group A Beta Streptococcus END OF REPORT * ML=Testing performed at Main Lab DEPARTMENT OF PATHOLOGY, [address] [place] [address] Adam Falcon M.D. Director [facility] # [id number] Procedures Date Code Description Status 01/19/2014 55201 Therapeutic,Prophylactic Intramuscular Inj Completed Encounters Type Date Location Provider Dx Diagnosis Office Visit 10/08/2017 Main Office Dinorah Lugo M.D. Z00.00 Encntr for general 3:30p adult medical exam w/o abnormal findings Office Visit 01/09/2017 Main Office Dinorah Lugo M.D. Z00.00 Encntr for general 11:00a adult medical exam w/o abnormal findings Office Visit 11/08/2015 Main Office Dinorah Lugo M.D. Z00.00 Encntr for general 2:30p adult medical exam w/o abnormal findings Office Visit 06/07/2015 Main Office Dinorah Lugo M.D. J02.9 Acute pharyngitis, 3:30p unspecified Office Visit 02/22/2015 Main Office Dinorah Lugo M.D. J20.0 Acute bronchitis due 2:15p to Mycoplasma pneumoniae Office Visit 10/26/2014 Main Office Dinorah Lugo M.D. 724.60 Lumbar Disc Disease 1:30p Office Visit 10/24/2014 Main Office Dinorah Lugo M.D. 846.8 Sprains & Strains 11:15a Sacroiliac Region Other Spec Sites Office Visit 08/10/2014 Main Office Dinorah Lugo M.D. 788.1 Dysuria 10:00a Office Visit 08/08/2014 Main Office Dinorah Lugo M.D. 788.1 Dysuria 9:45a Office Visit 08/03/2014 Main Office Dinorah Lugo M.D. 720.2 Sacroiliitis Not 11:00a Elsewhere Classified 780.56 Sleep Distrubances Dysfunc Assoc [...]
--- OUTSIDE RECORDS SUMMARY | 2018-10-12 17:12 | XMS REPORT | Continuity of Care Document ---
:1980 External Reference #:[id number] Author Name Zoila Gutierrez Care Team Providers Name Role Phone Dinorah Lugo MD Care Team Information Day Care Director Unavailable Payers Date Identification Numbers Payment Provider Subscriber Policy Number: [id number] Blane Rivera PayID: [id number] [address] [address] MARIELLA Khan [phone] Advance Directives Description No Information Available Problems [...] Range Note Ua RFX Micro & 11/15/2017 [facility] Urine Color YELLOW Yellow 1 Culture II [address] [place] [address] [phone] Urine Clarity CLEAR Clear Urine Glucose - Dipstick NEGATIVE mg/dL Negative Urine Bilirubin - Dipstick NEGATIVE Negative Urine Ketone TRACE mg/dL High Negative Urine Specific Reeder 1.020 N 1.010-1.030 Urine Blood NEGATIVE Negative Urine PH 5.5 Low 6.5-7.5 Urine Protein - Dipstick NEGATIVE mg/dL Negative Urine Urobilinogen - Dipstick 0.2 E.U./dL N 0.2-1.0 Urine Nitrite - Dipstick NEGATIVE Negative Urine Leuk Esterase NEGATIVE Negative Source: URINE, CLEAN CAT <SEE NOTE> 2 CBS W/Automated 11/15/2017 [facility] White Blood 6.9 K/uL N 3.1-10.[address] [place] [address] [phone] Red Blood Count 4.43 M/uL N 3.90-5.40 [...] 40.4-72.8 Lymph % 22.0 % N 20.0-42.0 Carlisle % 5.1 % N 4.3-13.2 Eo% 1.7 % N 0.0-6.6 Bas% 0.4 % N 0.0-1.1 Neut# 4.90 K/uL N 1.8-7.0 Lymph # 1.52 K/uL N 1.0-4.0 Carlisle # 0.35 K/uL N 0.3-0.9 Eos # 0.12 K/uL N 0.0-0.5 Baso # 0.03 K/uL N 0.0-0.1 Comprehensive Metabolic 11/15/2017 [facility] Glucose 95 mg/dL N 74-[address] [place], [place] [phone] BUN 7 mg/dL N 7-18 Creatinine 0.7 [...] 61 U/L N 45-117 Laboratory test 11/15/2017 [facility] Lipase 167 U/L N 56-[address] [place] [address] [phone] HCG,Serum (Qualitative) NEGATIVE (Negative) 5 Laboratory test 11/15/2017 [facility] Troponin-I < 0.015 [address] ng/[place] [address] [phone] Laboratory test 11/14/2017 [facility] Strep Negative Negative [address] [place] [address] [phone] CBS W/Automated 09/26/2017 [facility] White Blood 6.5 K/uL N 3.1-10.7 [address] [place] [address] [phone] Red Blood Count 4.05 M/uL N 3.90-5.40 [...] 40.4-72.8 Lymph % 24.0 % N 20.0-42.0 Carlisle % 6.3 % N 4.3-13.2 Eo% 2.2 % N 0.0-6.6 Bas% 0.3 % N 0.0-1.1 Neut# 4.34 K/uL N 1.8-7.0 Lymph # 1.55 K/uL N 1.0-4.0 Carlisle # 0.41 K/uL N 0.3-0.9 Eos # 0.14 K/uL N 0.0-0.5 Baso # 0.02 K/uL N 0.0-0.1 LDL Cholesterol 09/26/2017 [facility] Cholesterol 109 mg/dL <200 [address] [place], [place] [phone] Triglycerides 46 mg/dL <150 10 HDL Cholesterol 44 mg/dL >40 11 LDL-Cholesterol 56 mg/dL < 100 12 Basic Metabolic Panel 09/26/2017 [facility] Glucose 93 mg/dL N 74-[address] [place] [address] [phone] BUN 9 mg/dL N 7-18 Creatinine 0.6 mg/dL N 0.6-1.3 Glom Filtration Rate, Estimate >60 mL/min >60 If >60 mL/min >60 13 BUN/Creat 15.0 ratio Sodium 138 mmol/L N 136-145 Potassium 3.9 mmol/L N 3.5-5.1 Chloride 107 mmol/L N 98-107 Carbon Dioxide 26 mmol/L N 21-32 Anion Gap 5 mEq/L Low 8-16 Calcium 8.3 mg/dL Low 8.5-10.1 Laboratory test 09/26/2017 [facility] Vitamin A, 27.5 g/dL Low 31.2-89.1 [address] [place] [address] [phone] Vitamin B12 550 pg/mL N 193-986 Vitamin D,1,25 Dihydroxy 50.1 pg/mL 19.9-79.3 15 Vitamin E, Serum 09/26/2017 [facility] Vitamin E 6.6 mg/L 5.9-19.[address] [place] [address] [phone] Vitamin E(Gamma Tocopherol) 0.6 mg/L Low 0.7-4.9 16 Vitamin D(1,25 & 01/09/2017 [facility] Vitamin D,1,25 49 pg/mL 18-72 25), A & E [address] (Oh)2,[place] [address] [phone] Vitamin D3,1,25 (Oh)2 49 pg/mL Vitamin D2,1,25 (Oh)2 <8 pg/mL 17 Vitamin D,25-Oh,Total 33 ng/mL 30-100 Vitamin D,25-Oh,D3 33 ng/mL Vitamin D,25-Oh,D2 <4 ng/mL 18 Vitamin A (Retinol) 43 g/dL 38-98 19 Alpha-Tocopherol 12.6 mg/L 5.7-19.9 20 Lrer-Lyhtv-Ncjpdggzkj <1.0 mg/L <=4.3 21 Laboratory test 01/09/2017 [facility] Vitamin 668 pg/mL 200-[address] B12,[place] [address] [phone] Basic Metab W/O 01/09/2017 [facility] Sodium 139 mmol/L 135-[address] [place] [address] [phone] Potassium 3.9 mmol/L 3.5-5.3 Chloride 103 mmol/L 98-110 Carbon Dioxide 26 mmol/L 20-31 Glucose 88 mg/dL 65-99 22 Urea Nitrogen 9 mg/dL 7-25 Creatinine 0.54 mg/dL 0.50-1.10 BUN/Creatinine Ratio 17.0 6-22 Lipid Panel 01/09/2017 [facility] Cholesterol 156 mg/dL <[address] [place] [address] [phone] HDL Cholesterol 41 mg/dL Low >50 Cholesterol/HDL Ratio 3.8 CALC <5.0 LDL Chol,Calculated 89 mg/dL 0-100 23 Triglycerides 161 mg/dL High <150 Non-HDL Cholesterol 114 mg/dL <130 24 CBC W/ Diff & PLT 01/09/2017 [facility] WBC 7.4 thous/L 3.8-10.[address] [place] [address] [phone] RBC 4.36 mill/L 3.80-5.10 Hemoglobin 12.6 g/dL 11.7-15.5 Hematocrit 37.5 % 35.0-45.0 MCV 86.1 FL 80.0-100.0 MCH 29.0 pg 27.0-33.0 MCHC 33.7 g/dL 32.0-36.0 RDW 14.5 % 11.0-15.0 Platelet Count 226 thous/L 140-400 Platelet Sufficiency PENDING MPV 8.2 FL 7.5-12.5 Neutrophils,Absolute 4670 cells/L [phone] Bands,Absolute PENDING Metamyelocytes,Absolute PENDING Myelocytes,Absolute PENDING Promyelocytes,Absolute [...] Stippling PENDING Comment PENDING Laboratory test 10/31/2016 [facility] Strep Negative N Negative 26 finding [address] [place] [place] [address] [phone] Laboratory test 06/11/2016 [facility] Strep Negative N Negative 27 finding [address] [place] [address] [phone] Celiac Disease 11/07/2014 [facility] Interpretation see note [address] [place] [address] [phone] Tissue Transglutam AB Iga 1 U/mL <4 29 Iga,Serum 233 mg/dL 81-463 Laboratory test 10/18/2014 [facility] Urine HCG NEGATIVE Negative [address] (Qualitative) [place] [address] [phone] Urine Screen 10/18/2014 [facility] Urine Color STRAW Yellow [address] [place] [address] [phone] Urine Clarity CLEAR Clear Urine Glucose - Dipstick NEGATIVE mg/dL Negative Urine Bilirubin - Dipstick NEGATIVE Negative Urine Ketone NEGATIVE mg/dL Negative Urine Specific Reeder 1.015 1.010-1.030 Urine Blood NEGATIVE Negative Urine PH 5.5 Low 6.5-7.5 Urine Protein - Dipstick NEGATIVE mg/dL Negative Urine Urobilinogen - Dipstick 0.2 E.U./dL 0.2-1.0 Urine Nitrite - Dipstick NEGATIVE Negative Urine Leuk Esterase NEGATIVE Negative CBS W/Automated 07/21/2014 [facility] White Blood 6.8 K/uL 3.1-10.[address] [place] [address] [phone] Red Blood Count 4.32 M/uL 3.90-5.40 Hemoglobin [...] % 40.4-72.8 Lymph % 22.9 % 17.0-46.1 Carlisle % 5.7 % 4.3-13.2 Eo% 2.2 % 0.0-6.6 Bas% 0.3 % 0.0-1.1 Neut# 4.70 K/uL 1.0-7.0 Lymph # 1.56 K/uL Low 1.8-7.0 Carlisle # 0.39 K/uL 0.3-0.9 Eos # 0.15 K/uL 0.0-0.5 Baso # 0.02 K/uL 0.0-0.1 Basic Metabolic Panel 07/21/2014 [facility] Glucose 83 mg/dL 74-[address] [place] [address] [phone] BUN 11 mg/dL 7-18 Creatinine 0.7 mg/dL 0.6-1.3 Glom Filtration Rate, Estimate >60 mL/min >60 If >60 mL/min >60 31 BUN/Creat 15.7 ratio Sodium 141 mmol/L 136-145 Potassium 3.9 mmol/L 3.5-5.1 Chloride 106 mmol/L 98-107 Carbon Dioxide 30 mmol/L 21-32 Anion Gap 5 mEq/L Low 8-16 Calcium 8.4 mg/dL Low 8.5-10.1 Laboratory test 07/21/2014 [facility] Direct LDL 96.0 mg/dL [address] Cholesterol [place], [place] [address] [phone] TSH+Free T4 07/21/2014 [facility] Thyroid Stim 1.14 uIU/mL 0.36- ([place] [facility] [address] Hormone 3.74 [place], [place] [address] [phone] Free T4 0.94 ng/dL 0.76-1.46 Laboratory test 07/21/2014 [facility] Free T3 2.86 pg /mL 2.18-3.[address] [place], [place] [address] [phone] Reverse T3 12.7 ng/dL 9.2-24.1 Thyroid 07/21/2014 [facility] Thyroid Peroxidase 7 IU /mL 0-34 [address] Antibodies [place], [place] [address] [phone] Laboratory 07/21/2014 [facility] Antithyroglobulin < 1.0 0.0-0.9 34 test finding [address] Antibody IU/mL [place], [place] [address] [phone] Laboratory 04/19/2014 [facility] Histone AB <1.0 U <1.0 35 test finding [address] [place] [address] [phone] Iga,Serum 261 mg/dL 81-463 Igg,Serum 1304 mg/dL [phone] Igm,Serum 130 mg/dL 48-271 Laboratory test 04/19/2014 [facility] Histamine,Plasma <1.5 0.1-1.8 [address] NG/ML [place], [place] [address] [phone] CBC W/ Diff & 04/11/2014 [facility] White Blood Count 9.2 K/uL 3.1-10.[address] [place], [place] [address] [phone] Red Blood Count 4.21 M/uL 3.90-5.40 Hemoglobin [...] High 40.4-72.8 Lymph % 17.9 % 17.0-46.1 Carlisle % 5.2 % 4.3-13.2 Eo% 1.1 % 0.0-6.6 Bas% 0.2 % 0.0-1.1 Neut# 6.92 K/uL 1.0-7.0 Lymph # 1.64 K/uL 0.8-3.4 Carlisle # 0.48 K/uL 0.3-0.9 Eos # 0.10 K/uL 0.0-0.5 Baso # 0.02 K/uL 0.0-0.1 Laboratory test 04/11/2014 [facility] Vitamin B12 672 pg/mL 200-900 [address] [place] [address] [phone] FSH 2.7 mIU/mL 38 Luteinizing Hormone 1.8 mIU/mL 39 Folate,RBC 04/11/2014 [facility] Folate,Hemolysate 505.9 NotEstab.ng/m [address] [place] [address] [phone] Hematocrit 36.9 % 34.0-46.6 Folate,RBC 1371 ng/mL [phone] Laboratory test 04/11/2014 [facility] Estrogen,Total 83 pg/mL . [address] [place] [address] [phone] Progesterone 1.1 ng/mL . 41 TSH+Free T4 04/06/2014 [facility] Thyroid Stim 1.00 uIU/mL 0.36-3.74 ([facility] & [address] Hormone [facility] [place] [address] [phone] Free T4 0.92 ng/dL 0.76-1.46 Laboratory test 04/06/2014 [facility] Magnesium 1.7 mg/dL Low 1.8-2.[address] [place] [address] [phone] Laboratory test 03/26/2014 [facility] Urine HCG NEGATIVE Negative [address] (Qualitative) [place] [address] [phone] Urine Screen 03/26/2014 [facility] Urine Color STRAW Yellow [address] [place] [address] [phone] Urine Clarity CLEAR Clear Urine Glucose - Dipstick NEGATIVE mg/dL Negative Urine Bilirubin - Dipstick NEGATIVE Negative Urine Ketone NEGATIVE mg/dL Negative Urine Specific Reeder <=1.005 Low 1.010-1.030 Urine Blood NEGATIVE Negative Urine PH 6.5 6.5-7.5 Urine Protein - Dipstick NEGATIVE mg/dL Negative Urine Urobilinogen - Dipstick 0.2 E.U./dL 0.2-1.0 Urine Nitrite - Dipstick NEGATIVE Negative Urine Leuk Esterase NEGATIVE Negative Laboratory test 02/08/2014 [facility] Magnesium 1.6 mg/dL Low 1.8-2.[address] [place] [address] [phone] Laboratory test 01/04/2014 [facility] Vitamin 35.7 30.0-100.0 [address] D,25-Hydroxy ng/[place] [address] [phone] CBS W/Automated 01/04/2014 [facility] White Blood 9.8 K/uL 3.1-10.[address] [place] [address] [phone] Red Blood Count 4.25 M/uL 3.90-5.40 Hemoglobin [...] % 40.4-72.8 Lymph % 24.1 % 17.0-46.1 Carlisle % 5.2 % 4.3-13.2 Eo% 1.5 % 0.0-6.6 Bas% 0.4 % 0.0-1.1 Neut# 6.71 K/uL 1.0-7.0 Lymph # 2.35 K/uL 0.8-3.4 Carlisle # 0.51 K/uL 0.3-0.9 Eos # 0.15 K/uL 0.0-0.5 Baso # 0.04 K/uL 0.0-0.1 Celiac Disease 01/04/2014 [facility] Immunoglobulin A 226 mg/dL 91-414 Comp AB Profile [address] [place] [address] [phone] Antigliadin Abs, IgG 4 units 0-19 44 Antigliadin Abs, IgA 2 units 0-19 45 Endomysial IgA Antibody Negative Negative t-Transglutaminase IgA <2 U/mL 0-3 46 t-Transglutaminase IgG <2 U/mL 0-5 47 Laboratory test 01/04/2014 [facility] Magnesium 1.4 mg/dL Low 1.7-2.[address] [place] [address] [phone] Thyroid Stim Hormone 2.01 uIU/mL 0.49-4.67 Free T4 1.00 ng/dL 0.71-1.85 Basic Metabolic 01/04/2014 [facility] Glucose 101 mg/ dL 76-[address] [place] [address] [phone] BUN 8 mg/dL 5-23 Creatinine 0.8 mg/dL 0.5-1.4 Glom Filtration Rate, Estimate >60 mL/min >60 If >60 mL/min >60 48 BUN/Creat 10.0 ratio Sodium 137 mmol/L 136-145 Potassium 3.7 mmol/L 3.5-5.1 Chloride 104 mmol/L 98-107 Carbon Dioxide 28 mEq/L 18-29 Anion Gap 9 mEq/L 8-16 Calcium 8.9 mg/dL 8.5-10.1 Throat-Beta Strept 12/31/2013 [place] [employer] Throat Beta (SEE NOTE) [address] [place] [address] [phone] 1 UPPER ABDOMINAL DISCOMFORT, RECOMMENDED BY CC [...] populations. Clinical correlation is suggested. 5 Method: Area [employer] One-Step Immunoassay 6 0.0 - 0.045 ng/mL: Normal 0.046 - 0.5 ng/mL: Suggestive 0.6 - 1.5 ng/mL: Consistent 7 Percher: [id number] 8 E03.8,R53.83,R94.5 E03.8,R53.83,R94.5 Z00.00 R53.8 E66.3 9 [...] from National Health and Nutrition Examination Survey, 0583-4400. Individuals with vitamin A less than 20 ug/dL are considered vitamin A deficient and those with serum concentrations less than 10 ug/dL are considered severely deficient. This test was developed and its performance characteristics determined by [employer]. It has not been cleared or approved by the Food and Drug Administration. Performed at: [address] [id number] Instrument Assembly Supervisor: Francisco Mathew MD, Phone: [phone] 15 Performed at: [address] [id number] Instrument Assembly Supervisor: Francisco Mathew MD, Phone: [phone] 16 12/15/17 2010: Vitamin E(gamma previously reported as: 0.6 L mg/L Reference intervals for alpha and gamma-tocopherol determined from National Health and Nutrition Examination Survey, 5873-7617. Individuals with alpha-tocopherol levels less than 0.5 mg/L are considered vitamin E deficient. This test was developed and its performance characteristics determined by [employer]. It has not been cleared or approved by the Food and Drug Administration. Performed at: [address] [id number] Instrument Assembly Supervisor: Francisco Mathew MD, Phone: [phone] Amended result called to: [] - 12/15/17 at 2009 Reference intervals for alpha and gamma-tocopherol determined from National Health and Nutrition Examination Survey, 3778-1721. Individuals with alpha-tocopherol levels less than 5.0 mg/L are considered vitamin E deficient. This test was developed and its performance characteristics determined by [employer]. It has not been cleared or approved by the Food and Drug Administration. This is an amended report This report has been re-issued to display the correct interpretive comment. From August 18, 2017 through November 11, 2017 the comment was incorrect. The interpretive comment has been updated to appropriately reflect Vitamin E deficiency. The result and reference interval were reported correctly. Performed at: [address] [id number] Instrument Assembly Supervisor: Francisco Mathew MD, Phone: [phone] 17 Vitamin D3, 1,25(OH)2 indicates both endogenous production and supplementation. Vitamin D2, 1,25(OH)2 is an indicator of exogeous sources, such as diet or supplementation. Interpretation and therapy are based on measurement of Vitamin D,1,25(OH)2, Total. This test was developed and its analytical performance characteristics have been determined by [facility], [place], [place]. It has not been cleared or approved [...] more information on this test, go to http://education.ScratchJr/faq/MOX824 19 Vitamin supplementation within 24 hours prior to blood draw may affect the accuracy of the results. This test was developed and its analytical performance characteristics have been determined by [facility] [place] It has not been cleared or [...] analytical performance characteristics have been determined by [facility]. It has not been cleared or approved by the U.S. Food and Drug Administration. This assay has been validated pursuant to the CLIA regulations and is used for clinical purposes. 22 GLUCOSE REFERENCE RANGE BASED ON FASTING SPECIMEN. 23 The Elmer-Gonzalez calculation is a validated novel method that provides better accuracy than the Friedewald equation in the estimation of LDL-C, particularly when TG levels are 150-400 mg/dL and LDL-C levels are lower than 70 mg/dL. Reference: Elmer MAK et al. Comparison of a Novel Method vs the Friedewald Equation for Estimating Low-Density Lipoprotein Cholesterol Levels From the Standard Lipid Profile. SNEHAL. 2013;310(19): 4719-1105. Desirable range <100 mg/dL for patients with [...] Reference Intervals, 7th Ed, [employer], 2011. 26 Percher: [id number] 27 Percher: [id number] RAMA CHAUHAN 28 No serological evidence of [...] Program (NCEP) 33 Performed at: - [facility] [address] [id number] Instrument Assembly Supervisor: Ute Herrera MD, Phone: [phone] Performed at: - [facility] [address] [id number] Instrument Assembly Supervisor: Francisco Mathew MD, Phone: [phone] 34 Low positive Thyroglobulin antibodies are seen in a portion of the asymptomatic populations. Antithyroglobulin antibodies measured by [facility] 35 REFERENCE RANGE: <1.0 Negative 1.0 to 1.5 Weak Positive 1.6 to 2.5 Moderate Positive >2.5 Strong Positive 36 This test was performed using a kit that has not been approved or cleared by the FDA. The analytical performance characteristics of this test have been determined by [facility]. This test should not [...] 222.3 Postmenopausal 0.1 - 0.8 Performed at: [facility] [address] [id number] Instrument Assembly Supervisor: Ute Herrera MD, Phone: [phone] Performed at: [facility] [address] [id number] Instrument Assembly Supervisor: Francisco Mathew MD, Phone: [phone] 42 FIRST MORNING SPECIMENS GENERALLY CONTAIN THE HIGHEST CONCENTRATION OF HCG AND ARE RECOMMENDED FOR EARLY DETECTION OF . 43 Vitamin D deficiency has been defined by the [place] [employer] and an Endocrine Society practice guideline as a level of serum 25-OH vitamin D less than 20 ng/mL (1,2). The Endocrine Society went on to further define vitamin D insufficiency as a level between 21 and 29 ng/mL (2). 1. IOM ([place] [employer]). 2010. Dietary reference intakes for calcium and D. [place]: The National Academies Press. 2. Karen MF, [place], Nando DURAN, et al. Evaluation, treatment, and prevention of vitamin D deficiency: an Endocrine Society clinical practice guideline. JCEM. 2010; 96(7):1911-30. Performed at: [facility] [address] [id number] Instrument Assembly Supervisor: Ute Herrera MD, Phone: [phone] 44 Negative 0 - 19 Weak Positive 20 - 30 Moderate to Strong Positive >30 45 Negative 0 - 19 Weak Positive 20 - 30 Moderate to Strong Positive >30 46 Negative 0 - 3 Weak Positive 4 - 10 Positive >10 Tissue Transglutaminase (tTG) has been identified as the endomysial antigen. Studies have demonstr- ated that endomysial IgA antibodies have over 99% specificity for gluten sensitive enteropathy. 47 Negative 0 - 5 Weak Positive 6 - 9 Positive >9 Performed at: [address] [id number] Instrument Assembly Supervisor: Ute Herrera MD, Phone: [phone] 48 Note: Persistent reduction for 3 months or more in an eGFR <60 mL/min/1.73 m2 defines CKD. Patients with eGFR values >/=60 mL/min/1.73 m2 may also have CKD if evidence of persistent proteinuria is present. The original MDRD equation for estimated GFR is not valid for patients less than 18 years of age. Additional information may be found at www.kdoqi.org. 49 RUN DATE: 01/02/14 [facility] LAB LIVE PAGE 1 RUN TIME: [address] [place] [address] Specimen Inquiry Name: MARILYNN RIVERA : [address]: Ace Mcgee MD Acct: [id number] Unit: [id number] AGE: 33 Location: [facility] Re12/31/13 SEX: F Status: DEP ER SPEC: [id number] SHANTELLE: 12/31/13-[address] [facility] [address]: Ace Mcgee MD REQ: [id number] RECD: 12/31/13 STATUS: LOU CARBALLO DR: Dinorah Lugo MD _ SOURCE: THROAT SPDESC: ORDERED: Throat Beta Str Procedure Result Verified Site Throat Beta Strep Culture Final 01/02/14- 0856 ML Negative For Group A Beta Streptococcus END OF REPORT * ML=Testing performed at Main Lab DEPARTMENT OF PATHOLOGY, [address] [place] [address] Adam Falcon M.D. Director [facility] # [id number] Procedures Date Code Description Status 01/19/2014 08433 Therapeutic,Prophylactic Intramuscular Inj Completed Encounters Type Date [...] Main Office Dinorah Lugo, 472.1 Pharyngitis Chronic M.DCathi 995.30 Allergic Reaction Office Visit 02/22/2014 3:30p [...] pm - Dinorah Lugo M.D. at Main Jfatqi3311/2018 - Dinorah Lugo M.D.B35.9 Dermatophytosis, unspecifiedNew Medication: Clotrimazole/Betamethasone Dipropionate 1-0.05 % - apply to affected area three times a dayS80.862A Insect bite (nonvenomous), left lower leg, initial encounterNew Labs:Lupus (SLE) PNL, Ordered: 09/22/18Lyme Disease AB (Igg,Igm), Ib, Ordered: 09/22/18
--- NOTE | 2018-10-12 17:15 | ED ---
Lower Extremity - HPI Summary HPI Summary: 37 yr old female with the complaint of right ankle and heel pain. Onset this morning when she was hiking. She twisted her foot and ankle on a rock. She complains of pain to the heel and to the medial and lateral malleolus. Pain is worse with bearing weight. Pain is 6/10. No associated bruising or swelling. - History of Current Complaint Stated Complaint: RIGHT FOOT INJURY Time Seen by Provider: 10/12/18 17:10 Hx Last Menstrual Period: 10/30/17 - Allergies/Home Medications Allergies/Adverse Reactions: Allergies Allergy/AdvReac Type Severity Reaction Status Date / Time amoxicillin Allergy Rash Verified 10/12/18 17:13 cefuroxime [From Ceftin] Allergy Headache Verified 10/12/18 17:13 prednisone Allergy Difficulty Verified 10/12/18 17:13 Breathing Sulfa (Sulfonamide Allergy Rash Verified 10/12/18 17:13 Antibiotics) ? peanuts Allergy Swelling Uncoded 10/12/18 17:13 Of Face,Lips,& Throat environmental Allergy Congestion Uncoded 10/12/18 17:13 Home Medications: Home Medications NK [No Home Medications Reported] 10/12/18 [History Confirmed 10/12/18] PMH/Surg Hx/FS Hx/Imm Hx Respiratory History: Reports: Hx Asthma - exercized induced - Surgical History Surgery Procedure, Year, and Place: 2 C-SECTS Infectious Disease History: Denies: Hx Clostridium Difficile, Hx Hepatitis, Hx Human Immunodeficiency Virus (HIV), Hx of Known/Suspected MRSA, Hx Shingles, Hx Tuberculosis, Hx Known/ Suspected VRE, Hx Known/Suspected VRSA, History Other Infectious Disease, Traveled Outside the [place] in Last 30 Days - Family History Known Family History: Positive: None, Diabetes, Other - neg for clots, PE, DVT Negative: Hypertension - Social History Occupation: Employed Full-time Alcohol Use: None Substance Use Type: Reports: None Smoking Status (MU): Former Smoker Type: Cigarettes Amount Used/How Often: 1/4 PPD Length of Time of Smoking/Using Tobacco: 6 Years Have You Smoked in the Last Year: No Review of Systems Constitutional: Negative Positive: Other - right foot ankle pain All Other Systems Reviewed And Are Negative: Yes Physical Exam Triage Information Reviewed: Yes Vital Signs Reviewed: Yes Appearance: Positive: Well-Appearing, No Pain Distress Skin: Positive: Warm, Skin Color Reflects Adequate Perfusion Head/Face: Positive: Normal Head/Face Inspection Eyes: Positive: EOMI, GISSELLE ENT: Positive: Normal ENT inspection Neck: Positive: Nontender Respiratory/Lung Sounds: Positive: Clear to Auscultation, Breath Sounds Present Cardiovascular: Positive: Pulses are Symmetrical in both Upper and Lower Extremities Abdomen Description: Negative: Distended Musculoskeletal: Positive: Other - right ankle tender over the medial and lateral malleolus. Also tender over the right calcaneus. The achilles tendon is non tender and it is intact in function. Neurological: Positive: Sensory/Motor Intact, Alert, Oriented to Person Place, Time, CN Intact II-III, Speech Normal Psychiatric: Positive: Normal Procedures - Splinting Right Lower Extremity Location: right foot, ankle leg Hand-Made Type: orthoglass Splint: Posterior splint Pre-Proc Neuro Vasc Exam: normal Post-Proc Neuro Vasc Exam: normal Diagnostics - Laboratory Lab Statement: Any lab studies that have been ordered have been reviewed, and results considered in the medical decision making process. - Radiology right heel and ankle Radiology Interpretation Completed By: Radiologist - Non displaced medial calcaneus fracture Lower Extremity Course/Dx - Course Course Of Treatment: 37 yr old with non displaced calcaneus fracture. Splinted by me and referral to ortho. non weight bearing. Crutches - Diagnoses Provider Diagnoses: Nondisplaced fracture, Calcaneus fracture, right Discharge - Sign-Out/Discharge Documenting (check all that apply): Patient Departure All imaging exams completed and their final reports reviewed: Yes - Discharge Plan Condition: Good Disposition: HOME Patient Education Materials: Calcaneal Fracture (ED) Forms: *Work Release Referrals: Dinorah Lugo MD [Primary Care Provider] - Edil Marie MD [Medical Doctor] - 1 Day Additional Instructions: do not bear weight on your broken heel. Be sure to call orthopedics tomorrow for fast follow up. - Billing Disposition and Condition Condition: GOOD Disposition: Home
[2018-10-12 17:22] VITALS: BP 98/56
== END 2018-10-12 18:40 | disposition home or self-care (01) ==
LOC: UCCORT 16:52
DX: S92.001A Unspecified fracture of right calcaneus, initial encounter for closed fracture (principal); X50.1XXA Overexertion from prolonged static or awkward postures, initial encounter; Y93.01 Activity, walking, marching and hiking; Y92.9 Unspecified place or not applicable; Z88.1 Allergy status to other antibiotic agents; Z88.0 Allergy status to penicillin; Z88.2 Allergy status to sulfonamides; Z88.8 Allergy status to other drugs, medicaments and biological substances; Z87.891 Personal history of nicotine dependence
CPT/HCPCS: 99212; G0463

== ENCOUNTER 2019-03-11 17:33 | Emergency (ER) | payer BC ==
--- OUTSIDE RECORDS SUMMARY | 2019-03-11 17:51 | XMS REPORT | Continuity of Care Document ---
:1980 External Reference #:[id number] Author Name Mary White NP (transmitted by agent of provider Negra Matute) Address [address], [place] [address] Care Team Providers Name Role Phone Dinorah Lugo MD - Internal Medicine Care Team Information Retail Stock Clerk [phone] Mary White FNP-Ramin - Family Care Team Information Retail Stock Clerk [phone] Problems Description No Information Available Social History Type Date Description Comments Sex Unknown Tobacco Use Start: Unknown End: Former Cigarette Smoker 1/2 Unknown Pack Daily Smoking Status Reviewed: 02/23/19 Former Cigarette Smoker 1/2 Pack Daily ETOH Use Denies alcohol use Tobacco Use Start: Unknown End: Patient is a former smoker Unknown Recreational Drug Use Never Used Drugs Exercise Type/Frequency Exercises sporadically Allergies, Adverse Reactions, Alerts Active Allergies Reaction Severity Comments Date Amoxicillin Rash 10/13/2018 Sulfa Antibiotics Rash 10/13/2018 Prednisone Flushing 10/13/2018 Medications Active Medications SIG Qnty Indications Ordering Provider Date Sudafed Congestion 1 by mouth three Unknown 30mg times a day Tablets Vitamin B Complex 1 by mouth every Unknown Tablets day Vitamin D 1 by mouth every Unknown 2000Unit Capsules day Zinc 1 by mouth every Unknown 30mg Capsules day Evening Silver Star Oil Unknown L-Glutamine Powder Unknown Immunizations Description No Information Available Vital Signs Date Vital Result Comment 02/23/2019 3:16pm Height 65 inches 5'5" Weight 160.00 lb Heart Rate 68 /min BP Systolic Sitting 96 mmHg BP Diastolic Sitting 69 mmHg Respiratory Rate 20 /min Pain Level 0 O2 % BldC Oximetry 100 % BMI (Body Mass Index) 26.6 kg/m2 02/01/2019 3:53pm Height 65 inches 5'5" Weight 158.00 lb Heart Rate 63 /min BP Systolic 96 mmHg BP Diastolic 62 mmHg O2 % BldC Oximetry 100 % BMI (Body Mass Index) 26.3 kg/m2 Results Test Date Facility Test Result H/L Range Note CBC Auto 11/24/2018 [facility] White Blood 7.6 10^3/uL Normal 3.5-10.[address] [place] [address] [phone] Red Blood Count 4.23 10^6/uL Normal 3.70-4.87 Hemoglobin 12.9 g/dL Normal 12.0-16.0 Hematocrit 38 % Normal 35-47 Mean Corpuscular Volume 90 fL Normal 80-97 Mean Corpuscular Hemoglobin 30 pg Normal 27-31 Mean Corpuscular HGB Conc 34 g/dL Normal 31-36 Red Cell Distribution Width 13 % Normal 10-15 Platelet Count 195 10^3/uL Normal 150-450 Mean Platelet Volume 8.6 fL Normal 7.4-10.4 Abs Neutrophils 5.9 10^3/uL Normal 1.5-7.7 Abs Lymphocytes 1.3 10^3/uL Normal 1.0-4.8 Abs Monocytes 0.3 10^3/uL Normal 0-0.8 Abs Eosinophils 0.1 10^3/uL Normal 0-0.6 Abs Basophils 0.0 10^3/uL Normal 0-0.2 Abs Nucleated RBC 0.0 10^3/uL Granulocyte % 78.4 % Lymphocyte % 16.5 % Monocyte % 3.8 % Eosinophil % 0.9 % Basophil % 0.4 % Nucleated Red Blood Cells % 0.0 Comp Metabolic 11/24/2018 [facility] Sodium 138 mmol/L Normal 135-[address] [place] [address] [phone] Potassium 3.6 mmol/L Normal 3.5-5.0 Chloride 105 mmol/L Normal 101-111 Co2 Carbon Dioxide 29 mmol/L Normal 22-32 Anion Gap 4 mmol/L Normal 2-11 Glucose 91 mg/dL Normal 70-100 Blood Urea Nitrogen 6 mg/dL Normal 6-24 Creatinine 0.58 mg/dL Normal 0.51-0.95 BUN/Creatinine Ratio 10.3 Normal 8-20 Calcium 9.2 mg/dL Normal 8.6-10.3 Total Protein 7.2 g/dL Normal 6.4-8.9 Albumin 4.2 g/dL Normal 3.2-5.2 Globulin 3.0 g/dL Normal 2-4 Albumin/Globulin Ratio 1.4 Normal 1-3 Total Bilirubin 0.80 mg/dL Normal 0.2-1.0 Alkaline Phosphatase 66 U/L Normal 34-104 Alt 12 U/L Normal 7-52 Ast 14 U/L Normal 13-39 Egfr Non- 117.0 >60 Egfr 141.5 >60 2 Laboratory 11/24/2018 [facility] Free T4 (Free 0.94 Normal 0.61-1.[address] Thyroxine) ng/[place] [address] [phone] TSH (Thyroid Stim Horm) 1.00 mcIU/mL Normal 0.34-5.60 Vitamin D Total 25(Oh) 21.2 ng/mL Normal 20-50 3 Thyroid 11/24/2018 [facility] Thyroid 1.24 Normal <[address] Peroxidase IU/[place] [address] Antibodies [phone] Thyroglobulin Antibody II 0.6 IU/mL <4.0 Laboratory test 11/24/2018 [facility] Vitamin B12 625 pg/mL Normal 180-914 [address] [place] [address] [phone] Thyroxine 7.15 g/dL Normal 6.09-12.23 T3 Total 133 ng/dL Normal 87-178 Folic Acid (Folate) > 20.00 ng/mL >3.99 Copper, Serum 1.15 g/mL 0.75-1.45 5 Zinc Serum 0.68 g/mL 0.66-1.10 6 Heavy Metal Blool 11/24/2018 [facility] Arsenic <1 ng/mL 0- [address] [place] [address] [phone] Lead <1.0 g/dL 0.0-4.9 8 Mercury <1 ng/mL 0-9 9 Cadmium <0.2 ng/mL 0.0-4.[address] <SEE NOTE> [address] [facility] [place] [address] [facility] Guardian First Name MARILYNN Cordero Guardian Last Name MIGUEL Venous/Capillary Heavy Metals Venous Patient Race WHITE Submitting Laboratory 12 Anti Gliadin Igg And Iga 11/24/2018 [facility] Gliadin IgG < 10.0 U [address] [place] [address] [phone] Gliadin IgA <10.0 U 14 Celiac Hla 11/24/2018 [facility] [id number] SEE BELOW [address] [place] [address] [phone] [id number] SEE BELOW 16 Celiac Gene Pairs Present? No Celiac Gene Interpretation See Comment 17 MTHFR 11/24/2018 [facility] MTHFR C677T Heterozygous Abnormal Negative Mutation [address] [place] [address] [phone] MTHFR Interpretation See Comment 18 MTHFR Reviewed By Garima Hutson M.D. MTHFR [id number] Mutation Negative Negative Mthac Interpretation See Comment 19 Mthac Reviewed By Garima Hutson M.D. 20 Vitamin B12 And Folate 2018 [facility] Vitamin B12 < pending> Serum [address] [place] [address] [phone] Folic Acid (Folate) <pending> Laboratory test 2018 [facility] Vitamin D Total <pending> finding [address] 25(Oh) [place] [address] [phone] Laboratory test 2018 [facility] T3 Total <pending> finding [address] [place] [address] [phone] Thyroid Panel 2018 [facility] Free T4 (Free <pending> [address] Thyroxine) [place] [address] [phone] Thyroxine <pending> TSH (Thyroid Stim Horm) <pending> Laboratory test 2018 [facility] Copper, Serum <pending> finding [address] [place] [address] [phone] Zinc Serum <pending> 1 discussed & reviewed with patient 2 Because ethnic data is not always readily available, this report includes an eGFR for both -Americans and non- Americans. The National Kidney Disease Education Program (NKDEP) does not endorse the use of the MDRD equation for patients that are not between the ages of 18 and 70, are , have extremes of body size, muscle mass, or nutritional status, or are non- or non-. According to the National Kidney Foundation, irrespective of diagnosis, the stage of the disease is based on the level of kidney function: Stage Description GFR(mL/min/1.73 m(2)) 1 Kidney damage with normal or decreased GFR 90 2 Kidney damage with mild decrease in GFR 60-89 3 Moderate decrease in GFR 30-59 4 Severe decrease in GFR 15-29 5 Kidney failure <15 (or dialysis) 3 Total 25-Hydroxyvitamin D2 and D3 (25-OH-VitD) <10 ng/mL (severe deficiency) 10-19 ng/mL (mild to moderate deficiency) 20-50 ng/mL (optimum levels) 51-80 ng/mL (increased risk of hypercalciuria) >80 ng/mL (toxicity possible) 4 Normal Range 180 to 914 Indeterminate Range 145 to 180 Deficient Range <145 5 ADDITIONAL INFORMATION This test was developed and its performance characteristics determined by [facility] in a manner consistent with CLIA requirements. This test has not been cleared or approved by the U.S. Food and Drug Administration. Test Performed by: [facility] - [address] [address] 6 ADDITIONAL INFORMATION This test was developed and its performance characteristics determined by [facility] in a manner consistent with CLIA requirements. This test has not been cleared or approved by the U.S. Food and Drug Administration. Test Performed by: [facility] - [address] [address] 7 ADDITIONAL INFORMATION This test was developed and its performance characteristics determined by [facility] in a manner consistent with CLIA requirements. This test has not been cleared or approved by the U.S. Food and Drug Administration. 8 ADDITIONAL INFORMATION Testing performed by Inductively Coupled Plasma-Mass Spectrometry (ICP-MS). This test was developed and its performance characteristics determined by [facility] in a manner consistent with CLIA requirements. This test has not been cleared or approved by the U.S. Food and Drug Administration. 9 ADDITIONAL INFORMATION This test was developed and its performance characteristics determined by [facility] in a manner consistent with CLIA requirements. This test has not been cleared or approved by the U.S. Food and Drug Administration. 10 ADDITIONAL INFORMATION This test was developed and its performance characteristics determined by [facility] in a manner consistent with CLIA requirements. This test has not been cleared or approved by the U.S. Food and Drug Administration. 11 24 [address] 12 Test Performed by: [facility] - [place] [facility] [address] [place] [address] 13 REFERENCE VALUE <20.0 (Negative) Test Performed by: [facility] - [facility] [address] [place] [address] 14 REFERENCE VALUE <20.0 (Negative) 15 RESULT: 01:03,05 REFERENCE VALUE Not Applicable 16 RESULT: 03:01,06:03 DQ Serologic Equivalent: 7,6 REFERENCE VALUE Not Applicable 17 The absence of HLA celiac permissive genes would make the presence of celiac disease unlikely. ADDITIONAL INFORMATION Method: Molecular typing of HLA antigens performed using reverse SSOP and/or SSP methods, reported as serological equivalents and low to medium resolution molecular values. 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 MTHFR C677T carriers are not at increased risk for thrombosis in the absence of hyperhomocysteinemia. In the absence of alternative causes, heterozygous carriers of MTHFR C677T are not at increased risk for hyperhomocysteinemia. Hyperhomocysteinemia is a relatively weak risk factor for both venous thromboembolism and arterial thrombosis. The MTHFR C677T gene mutation test does not detect other causes of hyperhomocysteinemia due to acquired disorders (renal failure, zinc deficiency, leukemia, psoriasis, or antifolate drug therapy). If clinically indicated, suggest Coagulation Consultation 63560 (Thrombophila Profile) to complete the evaluation for an inherited or acquired thrombosing disorder (i.e., thrombophilia). Consider genetic consultation and counseling of potentially affected family members regarding laboratory testing. ADDITIONAL INFORMATION This test is a direct mutation analysis using PCR amplification, signal generation and release by cleavage of sequence specific alleles ([employer], [employer], [place], [place]). This test has been modified from the landing signal officer's instructions. Its performance characteristics were determined by [facility] in a manner consistent with CLIA requirements. This test has not been cleared or approved by the U.S. Food and Drug Administration. 19 This individual DOES NOT have the Methylenetetrahydrofolate reductase (MTHAC) H9880E gene mutation. In the absence of the MTHAC [id number] gene mutation, other causes of hyperhomocysteinemia should be considered (renal failure, zinc deficiency, leukemia, psoriasis, or antifolate drug therapy). If clinically indicated, suggest Coagulation Consultation 50737 (Thrombophilia Profile) to complete the evaluation for an inherited or acquired thrombosing disorder (i.e., thrombophilia). Consider genetic consultation and counseling of potentially affected family members regarding laboratory testing. ADDITIONAL INFORMATION This test is a direct mutation analysis using PCR amplification, signal generation and release by cleavage of sequence specific alleles ([employer], [employer], [place], [place]). This test has been modified from the landing signal officer's instructions. Its performance characteristics were determined by [facility] in a manner consistent with CLIA requirements. This test has not been cleared or approved by the U.S. Food and Drug Administration. 20 This test is a direct mutation analysis using PCR amplification, signal generation and release by cleavage of sequence specific alleles ([employer], [employer], [place], [place]). This test has been modified from the landing signal officer's instructions. Its performance characteristics were determined by [facility] in a manner consistent with CLIA requirements. This test has not been cleared or approved by the U.S. Food and Drug Administration. Test Performed by: [address] [address] Procedures Date Code Description Status 11/03/2018 27182 Rad Exam; OS Alcis Completed Medical Devices Description No Information Available Encounters Type Date Location Provider Dx Diagnosis Office Visit 02/01/2019 [facility] White, R14.0 Abdominal 4:00p [facility] [employer] [facility] distension (gaseous) L50.9 Urticaria, unspecified Z30.8 Encounter for other contraceptive management Office Visit 12/21/2018 10:00a [facility] White, R14.0 Abdominal [facility] [facility] distension (gaseous) L70.0 Acne vulgaris Office Visit 2018 1:00p [facility] Cindy, L50.9 Urticaria, [facility] [facility] unspecified T78.1xxA Oth adverse food reactions, not elsewhere classified, init Office Visit 11/03/2018 8:45a Vicky Cordero S92.001D Unsp fracture of Orthopedics at [facility] right Matheus pearson subs for fx w routn heal Office Visit 10/13/2018 1:00p Vicky Cordero S92.001A Unsp fracture of Orthopedics at [facility] right Matheus pearson init for clos fx Assessments Date Code Description Provider 02/23/2019 A04.8 Other specified bacterial intestinal Mary White NP infections 02/01/2019 R14.0 Abdominal distension (gaseous) Mary White NP 02/01/2019 L50.9 Urticaria, unspecified Mary White, JOSE 02/01/2019 Z30.8 Encounter for other contraceptive management Mary White NP 12/21/2018 R14.0 Abdominal distension (gaseous) Mary White NP 12/21/2018 L70.0 Acne vulgaris Mary White NP 2018 L50.9 Urticaria, unspecified Mary White, [employer] 2018 T78.1xxA Other adverse food reactions, not elsewhere Mary White NP classified, initial encounter 11/03/2018 S92.001D Unspecified fracture of right calcaneus, Edil Marie MD subsequent encounte 10/13/2018 S92.001A Unspecified fracture of right calcaneus, Edil Marie MD initial encounter f Plan of Treatment Future Appointment(s):03/29/2019 9:00 am - Mary White [facility] at [facility]02/23/2019 - Mary White NPA04.8 Other specified bacterial intestinal infectionsRecommendations:Your SIBO test through [facility] shows both hydrogen (57) and methane (43) SIBO Plan for SIBO treatment - will send via [facility]: Link: [email or web address] Code: [email or web address] [employer]- Lauricidin follow up in 4-5 weeks. Flax seed - 2 tablespoon/day Hemp seed and hemp oil Look up : coconut paleo porridge Ok to try GF Oats Functional Status Description No Information Available Mental Status Description No Information Available Referrals Description No Information Available
--- OUTSIDE RECORDS SUMMARY | 2019-03-11 17:51 | XMS REPORT | Continuity of Care Document ---
:1980 External Reference #:[id number] Author Name Mary White NP (transmitted by agent of provider Roxie Chavarria) Address [facility] [facility], [place] [address] Care Team Providers Name Role Phone Dinorah Lugo MD - Internal Medicine Care Team Information Shell Fisherman Mary White FNP-C - Family Care Team Information Shell Fisherman [phone] Problems Description No Information Available Social History Type Date Description Comments Sex Unknown Tobacco Use Start: Unknown End: Former Cigarette Smoker 1/2 Unknown Pack Daily Smoking Status Reviewed: 12/21/18 Former Cigarette Smoker 1/2 Pack Daily ETOH [...] mouth every Unknown 30mg Capsules day Evening [place] Oil Unknown L-Glutamine Powder Unknown Immunizations Description No Information Available Vital Signs Date Vital Result Comment 02/01/2019 3:53pm Height 65 inches 5'5" Weight 158.00 lb Heart Rate 63 /min BP Systolic 96 mmHg BP Diastolic 62 mmHg O2 % BldC Oximetry 100 % BMI (Body Mass Index) 26.3 kg/m2 12/21/2018 10:02am Height 65 inches 5'5" Weight 156.00 lb Heart Rate 60 /min BP Systolic 96 mmHg BP Diastolic 53 mmHg O2 % BldC Oximetry 98 % BMI (Body Mass Index) 26.0 kg/m2 Results Test Date Facility Test Result H/L Range Note CBC Auto 11/24/2018 [facility] White Blood 7.6 10^3/uL Normal 3.5-10.[address] [place] [address] [phone] Red Blood Count 4.23 10^6/uL Normal 3.70-4.87 [...] Blood Cells % 0.0 Comp Metabolic 11/24/2018 [facility] Sodium 138 mmol/L Normal 135-[address] [place] [address] [phone] Potassium 3.6 mmol/L Normal 3.5-5.0 Chloride 105 [...] Egfr Non- 117.0 >60 Egfr 141.5 >60 1 Laboratory 11/24/2018 [facility] Free T4 (Free 0.94 Normal 0.61-1.[address] Thyroxine) ng/[place] [address] [phone] TSH (Thyroid Stim Horm) 1.00 mcIU/mL Normal 0.34-5.60 Vitamin D Total 25(Oh) 21.2 ng/mL Normal 20-50 2 Thyroid 11/24/2018 [facility] Thyroid 1.24 Normal <[address] Peroxidase IU/[place] [address] Antibodies [phone] Thyroglobulin Antibody II 0.6 IU/mL <4.0 Laboratory test 11/24/2018 [facility] Vitamin B12 625 pg/mL Normal 180-[address] [place] [address] [phone] Thyroxine 7.15 g/dL Normal 6.09-12.23 T3 Total 133 ng/dL Normal 87-178 Folic Acid (Folate) > 20.00 ng/mL >3.99 Copper, Serum 1.15 g/mL 0.75-1.45 4 Zinc Serum 0.68 g/mL 0.66-1.10 5 Heavy Metal Blool 11/24/2018 [facility] Arsenic <1 ng/mL 0- [address] [place] [address] [phone] Lead <1.0 g/dL 0.0-4.9 7 Mercury <1 ng/mL 0-9 8 Cadmium <0.2 ng/mL 0.0-4.[address] <SEE NOTE> [address] [facility] [place] [address] [facility] Guardian First Name MARILYNN Cordero Guardian Last Name MIGUEL Venous/Capillary Heavy Metals Venous Patient Race WHITE Submitting Laboratory 11 Anti Gliadin Igg And Iga 11/24/2018 [facility] Gliadin IgG < 10.0 U [address] [place] [address] [phone] Gliadin IgA <10.0 U 13 Celiac Hla 11/24/2018 [facility] Hla-Dqa1 SEE BELOW [address] [place] [address] [phone] Hla-DQB1 SEE BELOW 15 Celiac Gene Pairs Present? No Celiac Gene Interpretation See Comment 16 MTHFR 11/24/2018 [facility] MTHFR C677T Heterozygous Abnormal Negative Mutation [address] [place] [address] [phone] MTHFR Interpretation See Comment 17 MTHFR Reviewed By Garima Hutson M.D. MTHFR [id number] Mutation Negative Negative Mthac Interpretation See Comment 18 Mthac Reviewed By Garima Hutson M.D. 19 Vitamin B12 And Folate 2018 [facility] Vitamin B12 < pending> Serum [address] [place] [address] [phone] Folic Acid (Folate) <pending> Laboratory test 2018 [facility] Vitamin D Total <pending> finding [address] 25(Oh) [place] [address] [phone] Laboratory test 2018 [facility] T3 Total <pending> finding [address] [place] [address] [phone] Thyroid Panel 2018 [facility] Free T4 (Free <pending> [address] Thyroxine) [place] [address] [phone] Thyroxine <pending> TSH (Thyroid Stim Horm) <pending> Laboratory test 2018 [facility] Copper, Serum <pending> finding [address] [place] [address] [phone] Zinc Serum <pending> 1 Because ethnic data is not always readily [...] 15-29 5 Kidney failure <15 (or dialysis) 2 Total 25-Hydroxyvitamin D2 and D3 (25-OH-VitD) <10 ng/mL (severe deficiency) 10-19 ng/mL (mild to moderate deficiency) 20-50 ng/mL (optimum levels) 51-80 ng/mL (increased risk of hypercalciuria) >80 ng/mL (toxicity possible) 3 Normal Range 180 to 914 Indeterminate Range 145 to 180 Deficient Range <145 4 ADDITIONAL INFORMATION This test was developed and its performance characteristics determined by [facility] in a manner consistent with CLIA requirements. This test has not been cleared or approved by the U.S. Food and Drug Administration. Test Performed by: [facility] - [address] [address] 5 ADDITIONAL INFORMATION This test was developed and its performance characteristics determined by [facility] in a manner consistent with CLIA requirements. This test has not been cleared or approved by the U.S. Food and Drug Administration. Test Performed by: [facility] - [address] [address] 6 ADDITIONAL INFORMATION This test was developed and its performance characteristics determined by [facility] in a manner consistent with CLIA requirements. This test has not been cleared or approved by the U.S. Food and Drug Administration. 7 ADDITIONAL INFORMATION Testing performed by Inductively Coupled Plasma-Mass Spectrometry (ICP-MS). This test was developed and its performance characteristics determined by [facility] in a manner consistent with CLIA requirements. This test has not been cleared or approved by the U.S. Food and Drug Administration. 8 ADDITIONAL INFORMATION This test was developed and its performance characteristics determined by [facility] in a manner consistent with CLIA requirements. This test has not been cleared or approved by the U.S. Food and Drug Administration. 9 ADDITIONAL INFORMATION This test was developed and its performance characteristics determined by [facility] in a manner consistent with CLIA requirements. This test has not been cleared or approved by the U.S. Food and Drug Administration. 10 24 [facility] 11 Test Performed by: [facility] - [facility] [employer] [address] [place] [phone] 12 REFERENCE VALUE <20.0 (Negative) Test Performed by: [facility] [employer] [address] [place] [address] 13 REFERENCE VALUE <20.0 (Negative) 14 RESULT: 01:03,05 REFERENCE VALUE Not Applicable 15 RESULT: 03:01,06:03 DQ Serologic Equivalent: 7,6 REFERENCE VALUE Not Applicable 16 The absence of HLA celiac permissive genes would make the presence of celiac disease unlikely. ADDITIONAL INFORMATION Method: Molecular typing of HLA antigens performed using reverse SSOP and/or SSP methods, reported as serological equivalents and low to medium resolution molecular values. Performing Laboratory CLIA# [id number] Test Performed by: [address] [address] 17 This individual DOES have the Methylenetetrahydrofolate reductase [...] therapy). If clinically indicated, suggest Coagulation Consultation 62694 (Thrombophila Profile) to complete the evaluation for an inherited or acquired thrombosing disorder (i.e., thrombophilia). Consider genetic consultation and counseling of potentially affected family members regarding laboratory testing. ADDITIONAL INFORMATION This test is a direct mutation analysis using PCR amplification, signal generation and release by cleavage of sequence specific alleles ([employer], [employer], [place], [place]). This test has been modified from the environmental protection inspector's instructions. Its performance characteristics were determined by [facility] in a manner consistent with CLIA requirements. This test has not been cleared or approved by the U.S. Food and Drug Administration. 18 This individual DOES NOT have the Methylenetetrahydrofolate reductase (MTHAC) [id number] gene mutation. In the absence of the MTHAC [id number] gene mutation, other causes of hyperhomocysteinemia should be considered (renal failure, zinc deficiency, leukemia, psoriasis, or antifolate drug therapy). If clinically indicated, suggest Coagulation Consultation 35830 (Thrombophilia Profile) to complete the evaluation for an inherited or acquired thrombosing disorder (i.e., thrombophilia). Consider genetic consultation and counseling of potentially affected family members regarding laboratory testing. ADDITIONAL INFORMATION This test is a direct mutation analysis using PCR amplification, signal generation and release by cleavage of sequence specific alleles ([employer], [employer], [place], [place]). This test has been modified from the environmental protection inspector's instructions. Its performance characteristics were determined by [facility] in a manner consistent with CLIA requirements. This test has not been cleared or approved by the U.S. Food and Drug Administration. 19 This test is a direct mutation analysis using PCR amplification, signal generation and release by cleavage of sequence specific alleles ([employer], [employer], [place], [place]). This test has been modified from the environmental protection inspector's instructions. Its performance characteristics were determined by [facility] in a manner consistent with CLIA requirements. This test has not been cleared or approved by the U.S. Food and Drug Administration. Test Performed by: [address] [address] Procedures Date Code Description Status 11/03/2018 [address] Rad Exam; OS Alcis Completed Medical Devices Description No Information Available Encounters Type Date Location Provider Dx Diagnosis Office Visit 12/21/2018 [facility] Mary White, R14.0 Abdominal 10:00a [facility] JOSE distension (gaseous) L70.0 Acne vulgaris Office Visit 2018 1:00p [facility] Mary White, L50.9 Urticaria, [facility] JOSE unspecified T78.1xxA Oth adverse food reactions, not elsewhere classified, init Office Visit 11/03/2018 8:45a Orthopedic Edil M S92.001D Unsp fracture of [facility] Alia Marie MD right calcaneus, AT [facility] for fx w jackelinn heal Office Visit 10/13/2018 1:00p Orthopedic Edil Cordero S92.001A Unsp fracture of [facility] Marie MD right calcaneus, AT [facility] for clos fx Assessments Date Code Description Provider 02/01/2019 R14.0 Abdominal distension (gaseous) Mary White NP 02/01/2019 L50.9 Urticaria, unspecified Mary White, JOSE 02/01/2019 Z30.8 Encounter for other contraceptive management Mary White NP 12/21/2018 R14.0 Abdominal distension (gaseous) Mary White NP 12/21/2018 L70.0 Acne vulgaris Mary White NP 2018 L50.9 Urticaria, unspecified Mary White NP 2018 T78.1xxA Other adverse food reactions, not elsewhere Mary White NP classified, initial encounter 11/03/2018 S92.001D Unspecified fracture of right calcaneus, Edil Marie MD subsequent encounte 10/13/2018 S92.001A Unspecified fracture of right calcaneus, Edil Marie MD initial encounter f Plan of Treatment Future Appointment(s):02/23/2019 3:30 pm - Mary White NP at [facility]02/01/2019 - Mary White NPR14.0 Abdominal distension ( gaseous)Follow up:follow up 3 weeksRecommendations:If the digestive system is working properly, we have maximum absorption of nutrients, resulting in energy and vitality. When the digestive system is not working well, we have bloating, systemic inflammation, skin rashes, food sensitivities, constipation, abdominal discomfort, fatigue, and many other diverse non-specific symptoms such as headaches, poor mood, joint pain, muscle fatigue, etc. The digestive tract may become compromised with a diet high in refined sugar, a diet low in fiber, as well asantibiotics, medications, stress, parasitic infections, bacterial infections, nutrient deficiencies,and alcohol use. These mechanisms may promote inflammation of the intestinal tract and lead to increased intestinal permeability. What is SIBO? SIBO occurs when the bacteria that normally live in the colon move backwards, up into the small intestine (where they are not supposed to be in high numbers) and an overgrowth develops. It can also occur when the small amount of bacteria normally present in the small intestines overgrows. When the bacteria are in the small intestine, THEY start digesting and fermenting your food (instead of YOU digesting and absorbing your food), creating gas, bloating, and malabsorption for the host. What are the symptoms? Extreme bloating (many people say they look 6months ) Constipation, diarrhea, or both Abdominal pain, tenderness, or discomfort Burping and/or farting Nausea Acid reflux Gastroparesis (like food is just sitting in stomach, won??t go down-feels like a brick in the stomach) Food sensitivities or intolerances Leaky gut Anxiety & depression (very common for SIBO ?? the LPS in the bacterial cell wall (endotoxins) increase inflammatory cytokines, which affect mood) Brain fog Recommend a SIBO (small intestinal bacteria overgrowth) breath test. Unfortunately, insurance doesn't tend to cover this test. We use the [employer] and it will test for the two types of SIBO - Methane and Hydrogen. The cost is $179. We recommend you send the test in with your payment and can ask the company for a bill that you can submit to your insurance.You can pay the test in full or they will let you split the payment into 4 payments. Please contact the company if you have any questions and review the handout we have provided for you. Plan for SIBO test - given test test kitL50.9 Urticaria, khjalimlppuR19.8 Encounter for other contraceptive managementRecommendations:Period Repair Manual, [place] Functional Status Description No Information Available Mental Status Description No Information Available Referrals Description No Information Available
[2019-03-11 17:56] VITALS: BP 106/68
--- NOTE | 2019-03-11 18:35 | UC ---
Complaint Female HPI - HPI Summary HPI Summary: Pt presents with c/o burning with urination that began a 3 days ago. Pt denies urinary frequency and urgency. pt states that she has a new sexual partner and has been engaging in more frequent sexual activity recently . Denies risk for STI. - History Of Current Complaint Chief Complaint: UCGU Stated Complaint: UTI SYMPTOMS Time Seen by Provider: 03/11/19 18:19 Hx Obtained From: Patient Hx Last Menstrual Period: 10/30/17 ?: No Onset/Duration: Sudden Onset, Lasting Days, Still Present Timing: Intermittent Severity Initially: Mild Severity Currently: Mild Pain Intensity: 0 Character: Dull, Burning Aggravating Factor(s): Urination Alleviating Factor(s): Nothing Associated Signs And Symptoms: Positive: Negative - Risk Factors Ectopic Risk Factor: Negative Ovarian Torsion Risk Factor: Negative - Allergies/Home Medications Allergies/Adverse Reactions: Allergies Allergy/AdvReac Type Severity Reaction Status Date / Time amoxicillin Allergy Rash Verified 10/12/18 17:13 cefuroxime [From Ceftin] Allergy Headache Verified 10/12/18 17:13 prednisone Allergy Difficulty Verified 10/12/18 17:13 Breathing Sulfa (Sulfonamide Allergy Rash Verified 10/12/18 17:13 Antibiotics) ? peanuts Allergy Swelling Uncoded 10/12/18 17:13 Of Face,Lips,& Throat environmental Allergy Congestion Uncoded 10/12/18 17:13 PMH/Surg Hx/FS Hx/Imm Hx Previously Healthy: Yes - Surgical History Surgical History: Yes Surgery Procedure, Year, and Place: 2 C-SECTS - Family History Known Family History: Positive: None, Diabetes, Other - neg for clots, PE, DVT Negative: Hypertension - Social History Occupation: Employed Full-time Lives: With Family Alcohol Use: None Substance Use Type: None Smoking Status (MU): Former Smoker Type: Cigarettes Amount Used/How Often: 1/4 PPD Length of Time of Smoking/Using Tobacco: 6 Years Have You Smoked in the Last Year: No When Did the Patient Quit Smoking/Using Tobacco: 2006 - Immunization History Most Recent Influenza Vaccination: Not the 2014/2015 Season Vaccination Up to Date: Yes Review of Systems All Other Systems Reviewed And Are Negative: Yes Constitutional: Positive: Negative Skin: Positive: Negative Eyes: Positive: Negative ENT: Positive: Negative Respiratory: Positive: Negative Cardiovascular: Positive: Negative Gastrointestinal: Positive: Negative Genitourinary: Positive: Dysuria, Other - c/o clitorus tenderness Motor: Positive: Negative Neurovascular: Positive: Negative Musculoskeletal: Positive: Negative Neurological: Positive: Negative Psychological: Positive: Negative Is Patient Immunocompromised?: No Physical Exam Triage Information Reviewed: Yes Appearance: Well-Appearing Vital Signs: Initial Vital Signs Temp 98.3 F 03/11/19 17:53 Pulse 72 03/11/19 17:53 Resp 18 03/11/19 17:53 BP 106/68 03/11/19 17:53 Pulse Ox 97 03/11/19 17:53 Vital Signs Reviewed: Yes Eye Exam: Normal ENT Exam: Normal ENT: Positive: Hearing grossly normal Dental Exam: Normal Neck exam: Normal Respiratory Exam: Normal Cardiovascular Exam: Normal Abdominal Exam: Normal Musculoskeletal Exam: Normal Neurological Exam: Normal Psychological Exam: Normal Skin Exam: Normal Complaint Female Dx - Differential Dx/Diagnosis Differential Diagnosis/HQI/PQRI: Sexually Transmitted Disease, Urinary Tract Infection Provider Diagnosis: Dysuria Discharge ED - Sign-Out/Discharge Documenting (check all that apply): Patient Departure All imaging exams completed and their final reports reviewed: No Studies - Discharge Plan Condition: Stable Disposition: HOME Patient Education Materials: Dysuria (ED) Referrals: Dinorah Lugo MD [Primary Care Provider] - If Needed - Billing Disposition and Condition Condition: STABLE Disposition: Home
== END 2019-03-11 18:44 | disposition home or self-care (01) ==
LOC: UCCORT 17:33
DX: R30.0 Dysuria (principal); R35.0 Frequency of micturition; R39.15 Urgency of urination; Z88.0 Allergy status to penicillin; Z88.1 Allergy status to other antibiotic agents; Z88.8 Allergy status to other drugs, medicaments and biological substances; Z88.2 Allergy status to sulfonamides; Z91.09 Other allergy status, other than to drugs and biological substances; Z87.891 Personal history of nicotine dependence
CPT/HCPCS: 81003; 99211; G0463